=== PATIENT | female | born 1935 | race Caucasian/White ===

== ENCOUNTER 2019-08-25 13:31 | Observation (INO) | payer MEDICARE, SELFPAY ==
[2019-08-25] VITALS (7 sets, daily range): BP systolic 102–158; BP diastolic 57–70; PULSE 64–82; RESP 14–18; TEMP 35.3–36.9; O2SAT 91–96; BMI 19.1
--- NOTE | 2019-08-25 13:44 | XR_ITS ---
WS: [id number] Portable AP upright chest, 08/25/2019 Clinical Data: weakness Comparison: Portable chest, 09/27/2017. Findings: No nodules, masses or effusions are seen. The heart is normal. The pulmonary vascularity is not increased. No pneumonia or pneumothorax is seen. The diaphragms are flattened. The aortic arch a nd descending aorta show calcification. XR/XR chest 1V portable [id number] Impression: Atherosclerosis and hyperinflation.
--- NOTE | 2019-08-25 13:50 | CTR_ITS ---
PROCEDURE INFORMATION: Exam: CT Abdomen And Pelvis With Contrast Exam date and time: 08/25/2019 2:54 PM Age: 83 years old Clinical indication: Abdominal pain; Prior surgery; Additional info: N/v TECHNIQUE: Imaging protocol: Computed tomography of the abdomen and pelvis with intravenous contrast. Radiation optimization: All CT scans at this facility use at least one of these dose optimization techniques: automated exposure control; mA and/or kV adjustment per patient size (includes targeted exams where dose is matched to clinical indication); or iterative reconstruction. Contrast material: VISI; Contrast volume: 75 ml; Contrast route: IV; COMPARISON: CR Hip 2-3v LEFT wwo Pelv* [id number] 06/06/2018 12:55 PM RADIATION DOSE METRICS: Total DLP: 489.31 mGy-cm FINDINGS: Liver: Normal. No mass. Gallbladder and bile ducts: Normal. No calcified stones. No ductal dilation. Pancreas: There is a heterogeneous area in the body of the pancreas measuring 5 x 2.2 cm as seen on series 2, image 24. There are iso and hypodense areas. No associated fat or calcification. There are calcifications in the pancreatic head and uncinate process consistent with chronic pancreatitis. Spleen: Normal. No splenomegaly. Adrenals: Normal. No mass. Kidneys and ureters: There is a 2.4 cm mid left renal cyst. Other smaller cysts are seen bilaterally. No renal calcification or hydronephrosis. Stomach and bowel: Unremarkable. No obstruction. No mucosal thickening. Appendix: The appendix is visualized and appears normal. Intraperitoneal space: Unremarkable. No free air. No significant fluid collection. Vasculature: Unremarkable. No abdominal aortic aneurysm. Lymph nodes: Unremarkable. No enlarged lymph nodes. Bladder: Unremarkable as visualized. Reproductive: There has been a hysterectomy. Bones/joints: Unremarkable. No acute fracture. Soft tissues: Unremarkable. CT/CT abdomen pelvis w con* [id number] IMPRESSION: There is abnormality in the body of the pancreas as described above. Differential considerations would include neoplasm as well as pancreatitis and perhaps pseudocyst. Clinical correlation is advised. Correlation with amylase and lipase are suggested.If there is desire for further evaluation, a MRI with and without IV contrast could be performed. There are benign bilateral renal cysts. No follow-up imaging is recommended based on imaging criteria. Radiation Dose CTDIVOL = (mGy): DLP = 489.31 (mGy-cm)
--- NOTE | 2019-08-25 13:56 | W.ED.NAVMDI ---
Documented by User: MARIE Merlos 08/25/19 16:12 HPI - Nausea/Vomiting/Diarrhea General: Chief complaint: Nausea/Vomiting/Diarrhea Stated complaint: n/v Time Seen by Provider: 08/25/19 13:39 History of Present Illness: HPI Narrative: Patient arrives here with complaint of vomiting since this morning nauseated off and on for the last 2 weeks. Says she just feels weak and feel like she keeping things down today denies any diarrhea fever chills does have a history of emphysema continues to smoke Denies any pain MD elicited complaint: nausea and vomiting Onset (ago): day(s) Description of vomiting: food contents and bilious Associated nausea: Yes Associated abdominal pain: No Severity: mild Associated symtoms: Reports no associated symptoms and nausea; Denies anxiety, change in vision, chest pain or headache(s) Review of Systems Const: Denies: fever(s), chills or body aches Eyes: Denies: change in vision or blurry vision ENMT: Denies: throat pain or nasal congestion Card: Denies: chest pain or dyspnea on exertion Resp: Denies: dyspnea, productive cough or non-productive cough GI: Reports: nausea and vomiting; Denies: abdominal pain Musc: Denies: extremity pain Skin/Breast: Denies: rash Neuro: Denies: headache(s) Psych: Denies: anxiety or depression Fausto/Lymph: Denies: easy bruising PFSH ED PFSH: Social History Smoking and tobacco status: current every day smoker Physical Exam Const: COMMON NORMALS: no acute distress, average body habitus and patient oriented x3 HENMT: COMMON NORMALS: normocephalic HEAD & SCALP: normal to inspection and normocephalic FACE & SINUS: normal facial exam Eye: COMMON NORMALS: conjunctivae normal and negative for no scleral icterus (Eyes appear little bit yellow) GENERAL EYE: appearance normal, both eyes and all related structures CONJUNCTIVA: Yes conjunctivae normal Neck/C-Spine: COMMON NORMALS: no JVD Chest: COMMONS NORMALS: normal inspection of the chest Resp: COMMON NORMALS: normal respiratory effort and clear to auscultation bilaterally AUSCULTATION: clear to auscultation bilaterally Cardio: COMMON NORMALS: no JVD, regular rate and regular rhythm RATE: regular rate RHYTHM: regular rhythm GI: COMMON NORMALS: Normal to inspection, nondistended, normoactive bowel sounds present Extremity: COMMON NORMALS: normal to inspection and full ROM Neuro: COMMON NORMALS: patient oriented x3 Skin: NARRATIVE SKIN EXAM: Skin is very thin and does have eczema does have some tenting Course Vital Signs: Vital signs: Vital Signs Temperature 95.6 F L 08/25/19 13:38 Pulse Rate 69 08/25/19 16:50 Respiratory Rate 14 08/25/19 16:50 Blood Pressure 129/58 08/25/19 16:50 Pulse Oximetry 96 08/25/19 16:50 MDM - Nausea/Vomiting/Diarrhea MDM Narrative: Medical decision making narrative: Discussed case with Dr. Harvey turned over care to her Lab Data: Labs: Lab Results 08/25/19 08/25/19 08/25/19 Range/Units 14:09 14:09 15:20 WBC 18.1 H (4.0-10.0) 10^3/ uL RBC 4.82 (4.1-5.3) 10^6/u L Hgb 15.0 (11.5-15.3) g/dL Hct 43.7 (37.0-47.0) % MCV 90.7 (81-99) fL MCH 31.1 (28.0-34.0) pg MCHC 34.3 (30.0-36.0) g/dL RDW 12.1 (12.1-15.1) % Plt Count 252 (130-400) 10^3/c mm MPV 10.7 H (7.4-10.4) fL Neut % (Auto) 82.6 % Lymph % (Auto) 11.5 % [place] % (Auto) 5.3 % Eos % (Auto) 0.1 % Baso % (Auto) 0.2 % Neut # (Auto) 14.9 H (1.8-7.7) 10^3/u L Lymph # (Auto) 2.1 (0.8-4.8) 10^3/u L [place] # (Auto) 1.0 H (0.2-0.9) 10^3/u L Eos # (Auto) 0.0 (0.0-0.8) 10^3/u L Baso # (Auto) 0.0 (0.0-0.1) 10^3/u L Nucleated RBC % (a uto) 0 % Nucleated RBCs # 0.0 /100WBC Sodium 140 (136-145) mmol/L Potassium 3.2 L (3.5-5.1) mmol/L Chloride 90 L (98-107) mmol/L Carbon Dioxide 33 H (22-29) mmol/L Anion Gap 20.2 H (5-19) BUN 27 H (8-23) mg/dL Creatinine 1.0 H (0.5-0.9) mg/dL Glucose 190 H (65-115) mg/dL Calculated Osmolal ity 292 (285-295) mOsm/k g Calcium 11.4 H (8.5-10.5) mg/dL Total Bilirubin 0.6 (0.15-1.2) mg/dL AST 14 (0-32) U/L ALT 13 (0-33) U/L Alkaline Phosphata se 53 (35-105) IU/L Total Protein 7.5 (6.6-8.7) g/dL Albumin 5.1 (3.5-5.2) g/dL Globulin 2.4 (1.3-4.6) g/dL Lipase 9 L (13-60) U/L Urine Color Yellow (Yellow) Urine Appearance Clear (CLEAR) Urine pH 6.5 (5-7) Ur Specific Gravit y 1.015 (1.005-1.030) Urine Protein 1+ H (Negative) Urine Glucose (UA) Norm (Normal) Urine Ketones 1+ H (Negative) Urine Blood Neg (Negative) Urine Nitrate Negative (Negative) Urine Bilirubin Neg (NEGATIVE) Urine Urobilinogen Norm (Negative) mg/dL Ur Leukocyte Corin ase Negative (Negative) Urine RBC None (0-2) /hpf Urine WBC 0-4 H (0-5) /hpf Ur Squamous Epith Cells None (0-5) Urine Bacteria Trace (NONE) Urine Mucus 2+ Discharge Plan Discharge Prescriptions: No Action atorvastatin 20 mg tablet 20 mg PO DAILY RF: 0 amlodipine 5 mg tablet 5 mg PO DAILY RF: 0 hydrochlorothiazide 25 mg tablet 25 mg PO DAILY RF: 0 Spiriva with HandiHaler 18 mcg capsule, w/inhalation device 18 mcg INHALATION DAILY RF: 0 Calcium 500 500 mg calcium (1,250 mg) Tablet 500 mg PO DAILY RF: 0 Multiple Vitamin, Womens Tablet 1 tab PO DAILY RF: 0 Vitamin D3 50 mcg (2,000 unit) Capsule 50 mcg PO DAILY RF: 0 Mucinex 600 mg Tablet Extended Release 12hr 600 mg PO Q12H PRN (Reason: congestion/cough) RF: 0 Coding Level of Care Code ED Front Line Supervisor for Chg Fwd Exam Comprehensive Documented by User: Karrie Harvey MD 08/25/19 17:00 HPI - Nausea/Vomiting/Diarrhea General: Chief complaint: Nausea/Vomiting/Diarrhea Stated complaint: n/v Time Seen by Provider: 08/25/19 13:39 PFSH ED PFSH: Social History Smoking and tobacco status: current every day smoker Course ED course: I saw this patient with [place], and reviewed her history, exam, test results. She is noted to have a new pancreatic mass and is still complaining of vomiting and not able to tolerated fluids. Discussed with Dr. Asencio and he will admit. Vital Signs: Vital signs: Vital Signs Temperature 95.6 F L 08/25/19 13:38 Pulse Rate 69 08/25/19 16:50 Respiratory Rate 14 08/25/19 16:50 Blood Pressure 129/58 08/25/19 16:50 Pulse Oximetry 96 08/25/19 16:50 MDM - Nausea/Vomiting/Diarrhea Lab Data: Labs: Lab Results 08/25/19 08/25/19 08/25/19 Range/Units 14:09 14:09 15:20 WBC 18.1 H (4.0-10.0) 10^3/ uL RBC 4.82 (4.1-5.3) 10^6/u L Hgb 15.0 (11.5-15.3) g/dL Hct 43.7 (37.0-47.0) % MCV 90.7 (81-99) fL MCH 31.1 (28.0-34.0) pg MCHC 34.3 (30.0-36.0) g/dL RDW 12.1 (12.1-15.1) % Plt Count 252 (130-400) 10^3/c mm MPV 10.7 H (7.4-10.4) fL Neut % (Auto) 82.6 % Lymph % (Auto) 11.5 % [place] % (Auto) 5.3 % Eos % (Auto) 0.1 % Baso % (Auto) 0.2 % Neut # (Auto) 14.9 H (1.8-7.7) 10^3/u L Lymph # (Auto) 2.1 (0.8-4.8) 10^3/u L [place] # (Auto) 1.0 H (0.2-0.9) 10^3/u L Eos # (Auto) 0.0 (0.0-0.8) 10^3/u L Baso # (Auto) 0.0 (0.0-0.1) 10^3/u L Nucleated RBC % (a uto) 0 % Nucleated RBCs # 0.0 /100WBC Sodium 140 (136-145) mmol/L Potassium 3.2 L (3.5-5.1) mmol/L Chloride 90 L (98-107) mmol/L Carbon Dioxide 33 H (22-29) mmol/L Anion Gap 20.2 H (5-19) BUN 27 H (8-23) mg/dL Creatinine 1.0 H (0.5-0.9) mg/dL Glucose 190 H (65-115) mg/dL Calculated Osmolal ity 292 (285-295) mOsm/k g Calcium 11.4 H (8.5-10.5) mg/dL Total Bilirubin 0.6 (0.15-1.2) mg/dL AST 14 (0-32) U/L ALT 13 (0-33) U/L Alkaline Phosphata se 53 (35-105) IU/L Total Protein 7.5 (6.6-8.7) g/dL Albumin 5.1 (3.5-5.2) g/dL Globulin 2.4 (1.3-4.6) g/dL Lipase 9 L (13-60) U/L Urine Color Yellow (Yellow) Urine Appearance Clear (CLEAR) Urine pH 6.5 (5-7) Ur Specific Gravit y 1.015 (1.005-1.030) Urine Protein 1+ H (Negative) Urine Glucose (UA) Norm (Normal) Urine Ketones 1+ H (Negative) Urine Blood Neg (Negative) Urine Nitrate Negative (Negative) Urine Bilirubin Neg (NEGATIVE) Urine Urobilinogen Norm (Negative) mg/dL Ur Leukocyte Corin ase Negative (Negative) Urine RBC None (0-2) /hpf Urine WBC 0-4 H (0-5) /hpf Ur Squamous Epith Cells None (0-5) Urine Bacteria Trace (NONE) Urine Mucus 2+ Discharge Plan Discharge Prescriptions: No Action atorvastatin 20 mg tablet 20 mg PO DAILY RF: 0 amlodipine 5 mg tablet 5 mg PO DAILY RF: 0 hydrochlorothiazide 25 mg tablet 25 mg PO DAILY RF: 0 Spiriva with HandiHaler 18 mcg capsule, w/inhalation device 18 mcg INHALATION DAILY RF: 0 Calcium 500 500 mg calcium (1,250 mg) Tablet 500 mg PO DAILY RF: 0 Multiple Vitamin, Womens Tablet 1 tab PO DAILY RF: 0 Vitamin D3 50 mcg (2,000 unit) Capsule 50 mcg PO DAILY RF: 0 Mucinex 600 mg Tablet Extended Release 12hr 600 mg PO Q12H PRN (Reason: congestion/cough) RF: 0 Coding Level of Care Code ED Front Line Supervisor for Chg Fwd Exam Comprehensive
[2019-08-25] MEDS: sodium chloride 0.9% 1,000 ML 999 ML IV (14:08)
[2019-08-25] MEDS: ondansetron 2 mg/ML SDV 2 mL 4 MG IVP (14:09)
[2019-08-25 14:23] LABS: Basophils % 0.2 %; Eosinophils % 0.1 %; Hematocrit 43.7 % (37.0-47.0); Lymphocytes # 2.1 10^3/uL (0.8-4.8); Lymphocytes % 11.5 %; Mean Corpuscular HGB Conc 34.3 g/dL (30.0-36.0); Mean Corpuscular Hemoglobin 31.1 pg (28.0-34.0); Mean Corpuscular Volume 90.7 fL (81-99); Mean Platelet Volume 10.7 fL (7.4-10.4); Monocytes % 5.3 %; Neutrophils # 14.9 10^3/uL (1.8-7.7); Neutrophils % 82.6 %; Nucleated Red Blood Cells % 0 %; Platelet Count 252 10^3/cmm (130-400); Red Blood Count 4.82 10^6/uL (4.1-5.3); Red Cell Distribution Width 12.1 % (12.1-15.1); White Blood Count 18.1 10^3/uL (4.0-10.0)
[2019-08-25 14:39] LABS: Alanine Aminotransferase 13 U/L (0-33); Albumin Level 5.1 g/dL (3.5-5.2); Alkaline Phosphatase 53 IU/L (35-105); Anion Gap 20.2 (5-19); Aspartate Amino Transferase 14 U/L (0-32); Blood Urea Nitrogen 27 mg/dL (8-23); Calcium 11.4 mg/dL (8.5-10.5); Carbon Dioxide 33 mmol/L (22-29); Chloride 90 mmol/L (98-107); Globulin 2.4 g/dL (1.3-4.6); Glucose 190 mg/dL (65-115); Lipase 9 U/L (13-60); Osmolality Calculated 292 mOsm/kg (285-295); Potassium 3.2 mmol/L (3.5-5.1); Sodium 140 mmol/L (136-145); Total Bilirubin 0.6 mg/dL (0.15-1.2); Total Protein 7.5 g/dL (6.6-8.7)
[2019-08-25] MEDS: iodixanol 320 mg/mL 100mL Btl IV (15:09)
[2019-08-25 15:55] LABS: Urine Appearance Clear (CLEAR); Urine Color Yellow (Yellow)
[2019-08-25 15:56] LABS: Add Urine Culture? No; Add Urine Microscopic? YES; Bacteria Urine TRACE; Bilirubin Urine Neg (NEGATIVE); Blood Urine Neg (Negative); Glucose Urine UA Norm (Normal); Ketones Urine 1+ (Negative); Leukocyte Esterase Urine Negative (Negative); Mucus Urine 2+; Nitrate Urine Negative (Negative); Protein Urine 1+ (Negative); Specific Gravity, Urine 1.015 (1.005-1.030); Urobilinogen Urine Norm (Negative); WBC Urine 0-4 /hpf (0-5); pH Urine 6.5 (5-7)
[2019-08-25 17:07] LABS: Lactate (Lactic Acid level) 2.4 mmol/L (0.5-2.2)
[2019-08-25 17:17] LABS: Alcohol Level < 10 mg/dL (0-10)
--- NOTE | 2019-08-25 19:35 | P.HP_ITS ---
Providers/Chief Complaint Admitting Physician: Mike Houston Primary Care Provider: Parvez Kumar DO Chief Complaint: n/v History of Present Illness Misa Calzada is a 83 year old female current smoker, with longstanding smoking history, HTN, HLD, COPD, not normally on oxygen presented for evaluation due to vomiting since yesterday, several episodes, as well as poor oral intake, and persistent nausea for about 3 weeks. She had an episode of constipation initially, and did see primary care provider for the nausea. She was started on bowel regimen and did have a bowel movement, however, at the same time started having vomiting as well. She does state taking ibuprofen for about 2-3 days, although not excessively . She is a chronic smoker but denies alcohol use. In ER incidentally noted hypercalcemia 11.4. Leukocytosis of 18,000. Hypokalemia. Dehydration. CT abdomen pelvis with 5 x 2.2 cm heterogenous area in the body of the pancreas of unclear etiology, malignancy not excluded, calcifications in the pancreatic head and uncinate process consistent with chronic pancreatitis. Lipase is 9. She denies diarrhea, denies pale or fatty stools. In ER she received Zofran. She is feeling slightly better. Denies any abdominal pain. She does report that food sometimes feels like it is stuck in her stomach and does not progress further which has been contributing to her lack of appetite and poor oral intake in the last 3 weeks. She reports she in the past used to get regular colonoscopies every 3 years. Last one was 2013 which showed some polyps. Review of Systems Const: Reports: change in appetite and fatigue; Denies: fever(s), chills, body aches or malaise Eyes: Denies: change in vision or eye redness ENMT: Denies: throat pain, oral sores or ear or mastoid pain Card: Denies: chest pain, edema, pre-syncope or dyspnea on exertion Resp: Denies: dyspnea, productive cough, change in phlegm color or hemoptysis GI: Denies: abdominal pain, nausea, vomiting, diarrhea, constipation, hematochezia or melena : Denies: flank pain, urinary frequency or hematuria Musc: Denies: back pain, joint swelling or joint redness Skin/Breast: Denies: rash, sores or new lesions Neuro: Denies: headache(s), numbness in extremities, weakness in extremities, dizziness, confusion or seizure-like activity Endo: Denies: polyuria or polydipsia Fausto/Lymph: Denies: easy bleeding or purpura All/Imm: Denies: urticaria, throat swelling or tongue swelling Medications/Allergies Home Medications Medication Instructions Recorded Confirmed Last Taken Type amlodipine 5 mg PO DAILY 08/25/19 08/25/19 08/24/19 History atorvastatin 20 mg PO DAILY 08/25/19 08/25/19 08/24/19 History calcium carbonate [Calcium 500] 500 mg PO DAILY 08/25/19 08/25/19 08/24/19 History cholecalciferol (vitamin D3) 50 mcg PO DAILY 08/25/19 08/25/19 08/24/19 History [Vitamin D3] guaifenesin [Mucinex] 600 mg PO Q12H PRN 08/25/19 08/25/19 08/24/19 History hydrochlorothiazide 25 mg PO DAILY 08/25/19 08/25/19 08/24/19 History pplehqtkyocj-Ze-sqjw-minerals 1 tab PO DAILY 08/25/19 08/25/19 08/24/19 History [Multiple Vitamin, Womens] tiotropium bromide [Spiriva with 18 mcg INHALATION DAILY 08/25/19 08/25/19 08/24/19 History HandiHaler] Allergies Allergy/AdvReac Type Severity Reaction Status Date / Time Unable to Assess Allergy Unverified 08/25/19 13:48 PFSH Acute PFSH: Medical History COPD (chronic obstructive pulmonary disease) DM type 2 (diabetes mellitus, type 2) HLD (hyperlipidemia) HTN (hypertension) Smoking addiction Surgical History H/O colonoscopy H/O: hysterectomy History of tonsillectomy Hx of shoulder surgery S/P foot surgery, left Family History Other Colon cancer Social History Smoking and tobacco status: current every day smoker cigarettes [ Other cigarette details: Has been trying to quit ] Alcohol intake: never Substance/Drug Use: never Lives independently: Yes Vitals/I&O/Wt Last Vital Signs Temp 95.6 F L 08/25/19 13:38 Pulse 64 08/25/19 18:10 Resp 16 08/25/19 18:10 BP 102/70 08/25/19 18:10 Pulse Ox 93 08/25/19 18:10 08/25/19 08/25/19 08/25/19 06:59 14:59 22:59 Intake Total 1000 / 1000 Balance 1000 / 1000 Weight last 48 hrs Weight 52.163 kg Physical Exam Const: COMMON NORMALS: no acute distress and patient oriented x3 NUTRITIONAL APPEARANCE: thin ORIENTATION/CONSCIOUSNESS: Yes awake HENMT: COMMON NORMALS: oropharynx normal Neck/C-Spine: COMMON NORMALS: no JVD Resp: COMMON NORMALS: normal respiratory effort and clear to auscultation bilaterally AUSCULTATION: clear to auscultation bilaterally Cardio: COMMON NORMALS: no JVD, regular rhythm, S1 normal heart sound present, S2 normal heart sound present and No murmurs present (Cardio) RHYTHM: regular rhythm HEART SOUNDS: S1 normal heart sound present and S2 normal heart sound present GI: COMMON NORMALS: Normal to inspection, nondistended, normoactive bowel sounds present, Soft to palpation and non-tender PALPATION: Yes Soft to palpation Extremity: COMMON NORMALS: no joint enlargement and no pedal edema Neuro: COMMON NORMALS: patient oriented x3 and moves all extremities Skin: COMMON NORMALS: no rashes or lesions noted GENERAL SKIN EXAM: no rashes or lesions noted Data : 08/25/19 14:09 08/25/19 14:09 A&P Assessment and plan (1) Vomiting: For the past 2 days. Very limited oral intake, but this extends for the past 3 weeks with persistent nausea. Previously constipation, but did have a bowel movement after bowel regimen started by PCP. Does have hypercalcemia, although this appears may be secondary to dehydration. CT abdomen pelvis without acute abnormality, but incidentally noted abnormality in the body of pancreas, 5 x 2.2 cm. Discussed with her. Unclear etiology at this time. Lipase is 9, although with signs of calcifications in the head of the pancreas appears may have had chronic pancreatitis before. Does not have signs of malabsorption on ROS. Vomiting may be related to acute on chronic pancreatitis. Cannot exclude malignancy of the pancreas as well. Long standing smoking history. Alternatively may be secondary to gastritis as she does report was taking 2 to 3 days of ibuprofen for back pain. She also reports that food is sticking around sometimes in her stomach and she f eels like it is not progressing. With history of diabetes discussed with her also possibility of gastroparesis, and she may benefit from gastric emptying study once she is feeling little bit better. Discussed with her concern for possible pancreatic malignancy, although this time it is not confirmed, finding may be secondary to cyst, or acute on chronic pancreatitis. She will need additional evaluation by MRI, either outpatient which will be ordered at time of discharge if she improves by tomorrow, otherwise inpatient. Will request for CA-19-9. With possibility of acute on chronic pancreatitis will at this time discontinue calcium as with hypercalcemia and this may be an etiology. Work-up hypercalcemia as below. We will also request for triglyceride level. She denies drinking alcohol. Gallbladder and bile ducts appear normal on CT with contrast. At this time also conservative management with Zofran, IV hydration, acid blockers. She declines PPI, but is okay with famotidine. Discussed with her to discontinue NSAIDs. If persistent dyspepsia with smoking history will need a nonemergent EGD. Status: Acute (2) Pancreatic abnormality: As above. Will need additional evaluation by MRI. CA-19-9. Counseled on smoking cessation. Status: Acute (3) Hypercalcemia: 11.4. This appears more likely secondary to dehydration as well as continue supplementation, also with leukocytosis which is likely due to hemoconcentration. Albumin is on the high side 5.1. Protein is not elevated. At this time discussed with her to discontinue supplementation. We will also check PTH, vitamin D. Provide IV hydration. Monitor calcium level. Status: Acute (4) Dehydration: IV hydration. Symptomatic management of nausea, vomiting, clear liquid diet. Status: Acute (5) Hypokalemia: Received replacement. Monitor level. Check magnesium. Status: Acute (6) Smoking addiction: Discussed cessation with her for 4 minutes. She says that she has been trying to quit. She has a longstanding history for at least 60 years of smoking. She is currently down to half a pack per day. Will offer her nicotine patches, gum. Continue to encourage cessation. Status: Acute (7) COPD (chronic obstructive pulmonary disease): Currently not in exacerbation. Not normally on oxygen. Status: Acute (8) DM type 2 (diabetes mellitus, type 2): She reports has been controlled by diet alone. Reports last A1c was 7.1, although I do not see any record in our system. Will request for level. With her symptoms may still benefit from evaluation by gastric emptying study on a nonurgent basis. Status: Acute (9) HTN (hypertension): Monitor blood pressures. Hold HCTZ due to dehydration. Status: Acute (10) HLD (hyperlipidemia): Continue statin. Status: Acute Additional A&P Information Metabolic alkalosis: Secondary to dehydration, contraction. Metabolic acidosis: Anion gap elevated, sequential lactic acidosis, again I believe this is secondary to dehydration, contraction, hypovolemia and hypoperfusion. Leukocytosis is present, but this is likely hemoconcentration. She does not at this time exhibit symptoms of active infection. These may also be reactive possibly secondary to acute on chronic pancreatitis. Cannot exclude malignancy. At this time gentle IV hydration. Monitor parameters. Attestations Medical Necessity Statement*: Place in observation. Coding Level of Care Code Acute Machine Folder for Chg Fwd Diagnoses Vomiting R11.10 Pancreatic abnormality Q45.3 Hypercalcemia E83.52 Dehydration E86.0 Hypokalemia E87.6 Smoking addiction F17.200 COPD (chronic obstructive pulmonary disease) J44.9 DM type 2 (diabetes mellitus, type 2) E11.9 HTN (hypertension) I10 HLD (hyperlipidemia) E78.5
[2019-08-25] MEDS: famotidine 20 mg Tablet PO (20:16)
[2019-08-25] MEDS: dextrose 5%-sod chloride 0.45% 1,000 ML 75 ML IV (20:16)
[2019-08-25 21:05] LABS: Estmated Average Glucose 189; Hemoglobin A1C 8.2 % (4.0-6.0)
[2019-08-26] VITALS: BP 101/65; PULSE 67; RESP 18; TEMP 36.7; O2SAT 90
[2019-08-26 00:44] LABS: Calcium 9.9 mg/dL (8.5-10.5); Parathyroid Hormone 14.4 pg/mL (15-65)
[2019-08-26 04:00] VITALS: BP 86/47; PULSE 59; RESP 18; TEMP 36.8; O2SAT 90
[2019-08-26 04:03] LABS: Cancer Antigen 19 9 715.1 U/mL (0-35)
[2019-08-26 04:11] LABS: 25 Hydroxy Vitamin D 87 ng/mL (30-100); Magnesium 1.3 mg/dL (1.7-2.3); Thyroid Stimulating Hormone 0.64 uIU/mL (0.27-4.20); Triglycerides 171 mg/dL (0-150)
[2019-08-26 06:03] LABS: Basophils # 0.1 10^3/uL (0.0-0.1); Basophils % 0.5 %; Eosinophils # 0.2 10^3/uL (0.0-0.8); Eosinophils % 1.5 %; Hematocrit 38.6 % (37.0-47.0); Hemoglobin 12.4 g/dL (11.5-15.3); Lymphocytes # 2.5 10^3/uL (0.8-4.8); Lymphocytes % 20.5 %; Mean Corpuscular HGB Conc 32.1 g/dL (30.0-36.0); Mean Corpuscular Hemoglobin 30.8 pg (28.0-34.0); Mean Corpuscular Volume 95.8 fL (81-99); Mean Platelet Volume 10.8 fL (7.4-10.4); Monocytes # 0.7 10^3/uL (0.2-0.9); Monocytes % 5.6 %; Neutrophils # 8.9 10^3/uL (1.8-7.7); Neutrophils % 71.6 %; Nucleated Red Blood Cells % 0 %; Platelet Count 166 10^3/cmm (130-400); Red Blood Count 4.03 10^6/uL (4.1-5.3); White Blood Count 12.4 10^3/uL (4.0-10.0)
[2019-08-26 06:21] LABS: Anion Gap 12.9 (5-19); Blood Urea Nitrogen 22 mg/dL (8-23); Calcium 9.8 mg/dL (8.5-10.5); Carbon Dioxide 30 mmol/L (22-29); Chloride 98 mmol/L (98-107); Glucose 148 mg/dL (65-115); Osmolality Calculated 285 mOsm/kg (285-295); Sodium 138 mmol/L (136-145)
[2019-08-26 06:22] LABS: Potassium 2.9 mmol/L (3.5-5.1)
[2019-08-26 08:00] VITALS: BP 113/57; PULSE 60; RESP 18; TEMP 37.1; O2SAT 92
--- NOTE | 2019-08-26 08:09 | PC.NURSE ---
REFUSED MEDICATIONS Patient has refused all medications except she states that she will take her spiriva. I informed her that I need to give an IV Potassium and after some explanation she agreed to take the medications. RICCO, ANA
[2019-08-26] MEDS: dextrose 5%-sod chloride 0.45% 1,000 ML 75 ML IV (08:32)
[2019-08-26] MEDS: potassium chloride premix 40 MEQ/100 ML PREMIX 25 MEQ IV ×2 (08:33→12:38)
[2019-08-26] MEDS: ondansetron 2 mg/ML SDV 2 mL 4 MG IVP (08:59)
[2019-08-26 09:05] VITALS: PULSE 62; O2SAT 92
[2019-08-26 11:01] VITALS: BP 114/55; PULSE 62; RESP 18; TEMP 36.9; O2SAT 93
[2019-08-26 15:29] VITALS: BP 119/54; PULSE 62; RESP 18; TEMP 37; O2SAT 92
[2019-08-26] MEDS: magnesium sulfate premix 2 GM/50 ML PIGGYBACK IV (16:43)
--- NOTE | 2019-08-26 17:37 | P.DS_ITS ---
Discharge Providers Date of Admission: 08/25/19 16:37 Date of Discharge: August 26, 2019 Attending Provider at Admission: Mike Houston Attending Provider at Discharge: Mike Houston Primary Care Provider: Parvez Kumar DO Diagnoses at Discharge Discharge Diagnosis (1) Vomiting: Status: Acute Problem details: Resolved. Not entirely clear reason, appears probably gastritis secondary to NSAIDs after in taking ibuprofen for 2 to 3 days. Started on famotidine as she had declined PPI. Will need evaluation by EGD due to long-term history of smoking, and persistent dyspepsia for several weeks. Additionally with poorly controlled diabetes she would benefit from assessment by gastric emptying study once she is feeling a little bit better, please help her arrange for this. Additionally noted pancreatic abnormality, and needs follow-up and assessment to exclude malignancy. Additionally possibility of acute on chronic pancreatitis, despite lipase being low, but with multiple calcifications in the head of the pancreas, this is a possibility. Gallbladder and ducts normal on CT. Triglycerides only moderately elevated. Calcium initially high on presentation, but perhaps secondary to dehydration, which improved to normal with rehydration. Supplementation discontinued for now. Appears to have pancreatic anomaly, possibly malignancy in the body of the pancreas which needs to be investigated, possibly contributing to recurrent episodes of pancreatitis. All of these as well as the below conditions were discussed with the patient. Please follow-up in office. (2) Pancreatic abnormality: Status: Acute Problem details: Please follow-up outpatient MRCP result to exclude possible malignancy. Possibly acute on chronic pancreatitis. Refer for additional testing as may be necessary. (3) Hypercalcemia: Status: Acute Problem details: On presentation. Appears to have improved. Possibly secondary to dehydration. At this time discussed to avoid supplementation. At the same time with concern for possible pancreatic malignancy, please follow-up calcium levels. (4) Dehydration: Status: Acute Problem details: Improved. Received IV hydration. Currently tolerating clear liquids. Advance diet slowly as tolerating. Discontinued HCTZ. For now hold other blood pressure medications as blood pressures have been on the soft side with hypovolemia. (5) Hypokalemia: Status: Acute Problem details: Replaced. Hypomagnesemia replaced. (6) Smoking addiction: Status: Acute Problem details: With dyspepsia, please refer for evaluation by EGD, as well as work-up pancreatic abnormality. Discussed with her regarding cessation. She is unfortunately a very long-term smoker of at least 60 years. Please continue to encourage and support cessation. (7) COPD (chronic obstructive pulmonary disease): Status: Acute Problem details: Currently not in exacerbation. (8) DM type 2 (diabetes mellitus, type 2): Status: Acute Problem details: She admits herself that she is very reluctant taking any medications, and in fact has been very reluctant to even try to take an acid rosaura. States that she has been trying to control her diabetes with diet and lifestyle, and says that this has been working for her. Appears that her A1c is 8.2, and currently diabetes is poorly controlled. Please work with her to establish additional control by medication on top of her lifestyle measures which does not appear are effective. (9) HTN (hypertension): Status: Acute Problem details: With hypovolemia on presentation, blood pressure is actually better in the hos pital, possibly with diet. For now her blood pressure medications are discontinued. She is encouraged to continue to maintain cardiac diet. Please continue to monitor blood pressures. Avoid hypovolemia, dehydration. (10) HLD (hyperlipidemia): Status: Acute Problem details: Continue statin. Reason for Visit Reason for Visit: Reason For Visit: n/v Hospital Course Hospital Course: Pleasant 83-year-old lady with a number of medical conditions, although by her own admission does not like taking medications, was placed in observation due to 2 days of episodes of nausea and vomiting, with nausea preceding the symptoms for the prior 3 weeks. She was initially having some constipation, and after describing her symptoms to PCP, had been prescribed a bowel regimen, and successfully moved her bowels, but subsequently started having the vomiting, and overall did not improve. She came in for evaluation to ER where she was found dehydrated, with hypovolemic contraction alkalosis, as well as mild degree of lactic acidosis due to hypoperfusion, for which she received IV fluids. Persistent nausea was treated with Zofran. CT of abdomen pelvis was obtained with finding of 5 x 2.2 cm unclear abnormality in the body of the pancreas, and with her very longstanding smoking history of at least 60 years, malignancy will need to be excluded for which an outpatient MRCP is ordered and will need to be followed up. She is also noted to have multiple calcifications in the head of the pancreas, and despite low lipase, acute on chronic pancreatitis is a distinct possibility. Gallbladder and ducts appeared normal on CT scan. Triglycerides only moderately elevated. Calcium was elevated initially on presentation, and hypercalcemia may have contributed to her constipation, possibly even other abdominal symptoms. PTH was not elevated, and hypercalcemia overall appears to be related to dehydration, as well as external supplementation, which at this time was recommended to her to discontinue. Calcium level will need to be followed up given concern for possible pancreatic malignancy. She did admit also to taking 2-3 days of ibuprofen, although said was not taking excessive doses. Gastritis secondary to NSAID intake is suspected as well, and she is started on famotidine as she declined to take PPI. She also described feeling that food does not progress through her stomach, and a lot of times sits there for a long time. She has diabetes, which she says has been well managed by diet and exercise. A1c was checked and is 8.2. Please discuss with her additional options for management of diabetes, as well as refer for follow-up gastric emptying study for possible gastroparesis contributing to her symptoms given poorly controlled diabetes. With longstanding smoking history, she also will need referral for assessment by EGD to exclude gastric malignancy as the reason of her persistent dyspepsia.While in the hospital with symptomatic treatment her nausea resolved. She had no abdominal pain. No further vomiting. She tolerated small amounts of clear liquid diet well. Her significant hypokalemia and hypomagnesemia seconda ry to vomiting and poor oral intake were replaced. She is overall feeling better today. She is agreeable to return home to slowly continue advance diet, and follow-up regarding all of the above conditions which were discussed with her in detail. Smoking cessation was strongly advised, and she verbalized understanding. Please discuss with her in follow-up on all the above conditions, and continue to encourage and support smoking cessation. Discharge Data Data Completed and Pending: Completed Studies During Hospitalization Category Date Time Status CT abdomen pelvis w con* [id number] Urge nt Cat Scan 08/25/19 13:50 Completed XR chest 1V shayna ble [id number] Stat Exams 08/25/19 13:44 Completed Pending at discharge Category Date Time Status Basic Metabolic P pedro AM LABS Lab 08/27/19 04:00 Ordered Basic Metabolic P pedro AM LABS Lab 08/28/19 04:00 Ordered Complete Blood Co unt w/Auto AM LABS Lab 08/27/19 04:00 Ordered Complete Blood Co unt w/Auto AM LABS Lab 08/28/19 04:00 Ordered Labs from last 24 hours 08/26/19 08/26/19 08/25/19 05:30 05:30 19:55 WBC 12.4 H RBC 4.03 L Hgb 12.4 Hct 38.6 MCV 95.8 D MCH 30.8 MCHC 32.1 D RDW 12.0 L Plt Count 166 MPV 10.8 H Neut % (Auto) 71.6 Lymph % (Auto) 20.5 Moffat % (Auto) 5.6 Eos % (Auto) 1.5 Baso % (Auto) 0.5 Neut # (Auto) 8.9 H Lymph # (Auto) 2.5 Moffat # (Auto) 0.7 Eos # (Auto) 0.2 Baso # (Auto) 0.1 Nucleated RBC % (a uto) 0 Nucleated RBCs # 0.0 Sodium 138 Potassium 2.9 L Chloride 98 Carbon Dioxide 30 H Anion Gap 12.9 BUN 22 Creatinine 0.7 Glucose 148 H Estimat Average Gl ucose Hemoglobin A1c Calculated Osmolal ity 285 Calcium 9.8 Magnesium 1.3 L Triglycerides 171 H CA 19-9 Antigen 25-OH Vitamin D To leslie 87 TSH 0.64 PTH Intact Calcium (PTH Intac t) 08/25/19 08/25/19 08/25/19 19:55 19:55 19:55 WBC RBC Hgb Hct MCV MCH MCHC RDW Plt Count MPV Neut % (Auto) Lymph % (Auto) Moffat % (Auto) Eos % (Auto) Baso % (Auto) Neut # (Auto) Lymph # (Auto) Moffat # (Auto) Eos # (Auto) Baso # (Auto) Nucleated RBC % (a uto) Nucleated RBCs # Sodium Potassium Chloride Carbon Dioxide Anion Gap BUN Creatinine Glucose Estimat Average Gl ucose 189 Hemoglobin A1c 8.2 H Calculated Osmolal ity Calcium Magnesium Triglycerides CA 19-9 Antigen 715.1 H 25-OH Vitamin D To leslie TSH PTH Intact 14.4 L Calcium (PTH Intac t) 9.9 Vitals: Last Vital Signs Temp 98.6 F 08/26/19 15:29 Pulse 62 08/26/19 15:29 Resp 18 08/26/19 15:29 BP 119/54 08/26/19 15:29 Pulse Ox 92 08/26/19 15:29 Discharge Plan Discharge Patient Disposition: Home, Self-Care Condition: Stable Prescriptions: New famotidine 20 mg Tablet 20 mg PO BID Qty: 60 RF: 0 ondansetron HCl [Zofran] 4 mg tablet 4 mg PO Q8H PRN (Reason: nausea and vomiting) 5 Days Qty: 30 RF: 1 nicotine 21 mg/24 hr patch 24 hour 1 patch TRANSDERMA Q24H Qty: 30 RF: 0 nicotine (polacrilex) 2 mg lozenge 2 mg BUCCAL Q1H PRN (Reason: nicotine cravings) Qty: 60 RF: 2 Continued atorvastatin 20 mg tablet 20 mg PO DAILY RF: 0 Spiriva with HandiHaler 18 mcg capsule, w/inhalation device 18 mcg INHALATION DAILY RF: 0 Multiple Vitamin, Womens Tablet 1 tab PO DAILY RF: 0 Mucinex 600 mg Tablet Extended Release 12hr 600 mg PO Q12H PRN (Reason: congestion/cough) RF: 0 Held Vitamin D3 50 mcg (2,000 unit) Capsule 50 mcg PO DAILY RF: 0 Hold Instructions: Resume on 09/09/19. Discontinued amlodipine 5 mg tablet 5 mg PO DAILY RF: 0 hydrochlorothiazide 25 mg tablet 25 mg PO DAILY RF: 0 Calcium 500 500 mg calcium (1,250 mg) Tablet 500 mg PO DAILY RF: 0 Discharge Orders: Discharge Order (Routine); Ordered 08/26/19 Ordered By: Mike Houston Other Ambulatory Orders: MR MRCP [id number] (Routine) Timeframe: 1 Week Facility: [facility] - Location: Radiology [facility] Ordered By: Mike Houston Referrals: Parvez Kumar DO [Primary Care Provider] - 4-7 days (Called office and left a message to make an appointment for you and for them to call you with that.) Discharge Diet: Advance as tolerated, Diabetic and Clear Liquid Discharge Activity: Increase activity as tolerated Activity Restrictions/Additional Instructions: Please avoid taking any NSAIDs like ibuprofen as these may lead to further inflammation of her stomach, worsening of nausea, vomiting and other symptoms of dyspepsia. Due to history of smoking, please discuss with your primary care provider regarding persistent dyspepsia and need for evaluation by gastroscopy to exclude any possibility of occult malignancy. Please also follow-up with your primary care provider regarding the results of MRI of your pancreas with regards to the lesion there. Please stop smoking. Slowly advance diet. If you again experience severe abdominal pain, vomiting, inability to tolerate food or drink, seek medical attention. Please discuss with your primary care doctor also regarding referral for gastric emptying study due to diabetes, once you are feeling a bit better, to assess for possible gastroparesis as the cause of your symptoms of food sticking in your stomach. If you ever have recurrence also food sticking your throat, discussed also with your primary care doctor regarding referral for barium swallow evaluation if gastroscopy is not pursued to evaluate for any narrowing in your swallowing tube (esophagus). At this time your blood pressure medications are discontinued. Please monitor your blood pressure 3 times daily, record values to bring to your appointment. If your blood pressures are persistently low at home, please seek medical attention. On presentation your calcium level was also elevated, this is most likely due to dehydration, however, please discuss with your primary care provider to follow- up with a calcium level again in office. Please discontinue calcium supplementation at this time. Discuss again with your primary care doctor regarding if this is needed to be resumed in the future. Please discuss with your primary care doctor regarding treatment of diabetes with medication in addition to dietary/lifestyle control due to poorly controlled diabetes with elevated A1c level (8.2). Discharge Attestations Time Spent in Discharge Care*: greater than 30 min Quality Metrics Clinical Quality Measures During this hospital stay, did patient experience: None Coding Level of Care Code Acute Continuous Improvement Facilitator for Chg Fwd Diagnoses Vomiting R11.10 Pancreatic abnormality Q45.3 Hypercalcemia E83.52 Dehydration E86.0 Hypokalemia E87.6 Smoking addiction F17.200 COPD (chronic obstructive pulmonary disease) J44.9 DM type 2 (diabetes mellitus, type 2) E11.9 HTN (hypertension) I10 HLD (hyperlipidemia) E78.5
== END 2019-08-26 18:45 | disposition home or self-care (01) ==
LOC: ER 16:45 → MEDSURG 17:28
PROVIDERS: Emergency Medicine; Nurse Practitioner Family; Admitting Provider Internal Medicine; PCP Electrodiagnostic Medicine; Visit Provider Internal Medicine
DX: R11.10 Vomiting, unspecified (principal); Q45.3 Other congenital malformations of pancreas and pancreatic duct; E83.52 Hypercalcemia; E86.0 Dehydration; E87.6 Hypokalemia; F17.210 Nicotine dependence, cigarettes, uncomplicated; J44.9 Chronic obstructive pulmonary disease, unspecified; E11.9 Type 2 diabetes mellitus without complications; I10 Essential (primary) hypertension; E78.5 Hyperlipidemia, unspecified
CPT/HCPCS: 12345; 36415; 71045; 74177; 80048; 80053; 80307; 81001; 82306; 82310; 83036; 83605; 83690; 83735; 83970; 84443; 84478; 85025; 86301; 96360; 96361; 96374; 96375; 99283; 99285; G0378; J2405; J3475; J3480; J7030; J7799; Q9967

== ENCOUNTER 2019-08-29 04:46 | Observation (INO) | payer MEDICARE, SELFPAY ==
[2019-08-29] VITALS (11 sets, daily range): BP systolic 138–183; BP diastolic 45–95; PULSE 67–89; RESP 16–24; TEMP 36.8–37.2; O2SAT 93–97
--- NOTE | 2019-08-29 05:04 | ED_ITS ---
Documented by User: Hakan Nesbitt MD 08/29/19 05:49 HPI - Nausea/Vomiting/Diarrhea General: Chief complaint: Nausea/Vomiting/Diarrhea Stated complaint: n/v Time Seen by Provider: 08/29/19 04:50 Source: patient Mode of arrival: ambulatory Limitations: no limitations History of Present Illness: HPI Narrative: 83-year-old female who was recently admitted and diagnosed with a mass in her pancreas. Patient's been having nausea for weeks. She was discharged 2 days ago and has been improved but states she woke up 3 hours ago with severe nausea. She took one Zofran with minimal relief. She denies any pain. She states she has been making herself vomit by sticking her finger down her throat. She denies any fever or diarrhea. MD elicited complaint: nausea and vomiting Onset (ago): hour(s) Associated nausea: Yes Location of pain: None Exacerbating factors: none Relieving factors: none Associated symtoms: Reports nausea; Denies chest pain, dysuria or headache(s) Review of Systems Const: Denies: fever(s), chills, body aches or change in appetite Eyes: Denies: blurry vision or eye discomfort ENMT: Denies: throat pain or dental pain Card: Denies: chest pain Resp: Denies: dyspnea GI: Reports: nausea and vomiting : Denies: dysuria Musc: Denies: neck pain or back pain Skin/Breast: Denies: rash Neuro: Denies: headache(s) Psych: Denies: depression Fausto/Lymph: Denies: easy bruising All/Imm: Denies: urticaria PFSH ED PFSH: Medical History COPD (chronic obstructive pulmonary disease) Currently not in exacerbation. DM type 2 (diabetes mellitus, type 2) She admits herself that she is very reluctant taking any medications, and in fact has been very reluctant to even try to take an acid rosaura. States that she has been trying to control her diabetes with diet and lifestyle, and says that this has been working for her. Appears that her A1c is 8.2, and currently diabetes is poorly controlled. Please work with her to establish additional control by medication on top of her lifestyle measures which does not appear are effective. HLD (hyperlipidemia) Continue statin. HTN (hypertension) With hypovolemia on presentation, blood pressure is actually better in the hospital, possibly with diet. For now her blood pressure medications are discontinued. She is encouraged to continue to maintain cardiac diet. Please continue to monitor blood pressures. Avoid hypovolemia, dehydration. Smoking addiction With dyspepsia, please refer for evaluation by EGD, as well as work-up pancreatic abnormality. Discussed with her regarding cessation. She is unfortunately a very long- term smoker of at least 60 years. Please continue to encourage and support cessation. Surgical History H/O colonoscopy H/O: hysterectomy History of tonsillectomy Hx of shoulder surgery S/P foot surgery, left Family History Other Colon cancer Social History Smoking and tobacco status: current every day smoker cigarettes [ Other cigarette details: Has been trying to quit ] Alcohol intake: never Lives independently: Yes Physical Exam Const: COMMON NORMALS: no acute distress, patient oriented x3 and healthy appearing HENMT: COMMON NORMALS: normocephalic and atraumatic HEAD & SCALP: normocephalic and atraumatic Eye: COMMON NORMALS: Equal, round and reactive pupils present and EOMs intact bilaterally PUPIL: Yes Equal, round and reactive pupils present Neck/C-Spine: COMMON NORMALS: full ROM and supple Chest: COMMONS NORMALS: normal inspection of the chest and normal palpation of entire chest wall Resp: COMMON NORMALS: normal respiratory effort, No retractions, No use of accessory muscles and clear to auscultation bilaterally AUSCULTATION: clear to auscultation bilaterally Cardio: COMMON NORMALS: regular rate, regular rhythm and No murmurs present (Cardio) RATE: regular rate RHYTHM: regular rhythm GI: COMMON NORMALS: Normal to inspection, nondistended, normoactive bowel sounds present, Soft to palpation, non-tender and no masses PALPATION: Yes Soft to palpation Extremity: COMMON NORMALS: normal to inspection and full ROM Neuro: COMMON NORMALS: patient oriented x3, moves all extremities and no focal motor deficits Psych: COMMON NORMALS: mental status grossly normal, Normal thought process present and cooperative THOUGHT PROCESS: Normal thought process present Skin: COMMON NORMALS: no rashes or lesions noted and no wounds GENERAL SKIN EXAM: no rashes or lesions noted Course Vital Signs: Vital signs: Vital Signs Temperature 98.8 F 08/29/19 04:56 Pulse Rate 78 08/29/19 07:11 Respiratory Rate 18 08/29/19 06:05 Blood Pressure 161/62 08/29/19 07:11 Pulse Oximetry 93 08/29/19 07:11 MDM - Nausea/Vomiting/Diarrhea Lab Data: Labs: Lab Results 08/29/19 08/29/19 08/29/19 Range/Units 05:02 05:02 05:53 WBC 14.7 H (4.0-10.0) 10^3/ uL RBC 4.61 (4.1-5.3) 10^6/u L Hgb 14.1 (11.5-15.3) g/dL Hct 42.2 (37.0-47.0) % MCV 91.5 (81-99) fL MCH 30.6 (28.0-34.0) pg MCHC 33.4 (30.0-36.0) g/dL RDW 12.1 (12.1-15.1) % Plt Count 234 (130-400) 10^3/c mm MPV 10.6 H (7.4-10.4) fL Neut % (Auto) 71.6 % Lymph % (Auto) 22.1 % [place] % (Auto) 4.5 % Eos % (Auto) 1.2 % Baso % (Auto) 0.3 % Neut # (Auto) 10.5 H (1.8-7.7) 10^3/u L Lymph # (Auto) 3.2 (0.8-4.8) 10^3/u L [place] # (Auto) 0.7 (0.2-0.9) 10^3/u L Eos # (Auto) 0.2 (0.0-0.8) 10^3/u L Baso # (Auto) 0.1 (0.0-0.1) 10^3/u L Nucleated RBC % (a uto) 0 % Nucleated RBCs # 0.0 /100WBC Sodium 141 (136-145) mmol/L Potassium 3.4 L (3.5-5.1) mmol/L Chloride 99 (98-107) mmol/L Carbon Dioxide 27 (22-29) mmol/L Anion Gap 18.4 (5-19) BUN 13 (8-23) mg/dL Creatinine 0.7 (0.5-0.9) mg/dL Glucose 163 H (65-115) mg/dL Calculated Osmolal ity 292 (285-295) mOsm/k g Calcium 9.7 (8.5-10.5) mg/dL Total Bilirubin 0.5 (0.15-1.2) mg/dL AST 20 (0-32) U/L ALT 13 (0-33) U/L Alkaline Phosphata se 55 (35-105) IU/L Total Protein 6.8 (6.6-8.7) g/dL Albumin 4.5 (3.5-5.2) g/dL Globulin 2.3 (1.3-4.6) g/dL Lipase 12 L (13-60) U/L Urine Color Yellow (Yellow) Urine Appearance Clear (CLEAR) Urine pH 7 (5-7) Ur Specific Gravit y 1.010 (1.005-1.030) Urine Protein Neg (Negative) Urine Glucose (UA) Norm (Normal) Urine Ketones 1+ H (Negative) Urine Blood Neg (Negative) Urine Nitrate Negative (Negative) Urine Bilirubin Neg (NEGATIVE) Urine Urobilinogen Norm (Negative) mg/dL Ur Leukocyte Corin ase Negative (Negative) Discharge Plan Discharge Patient Disposition: Admitted As Inpatient Clinical Impression: Intractable nausea and vomiting, Pancreatic mass Condition: Fair Referrals: Parvez Kumar DO [Primary Care Provider] - 4-7 days Patient Instructions: Acute Nausea and Vomiting (ED) Sign Out Sign Out Data: Patient Sign Out occurred on 08/29/19 at 07:46. Patient's care was discussed, and care was transferred from to Tyler Gonzalez. Coding Level of Care Code ED Journeyman Wireman for Chg Fwd Exam Comprehensive Documented by User: Tyler Gonzalez DO 08/29/19 07:46 HPI - Nausea/Vomiting/Diarrhea General: Chief complaint: Nausea/Vomiting/Diarrhea Stated complaint: n/v Time Seen by Provider: 08/29/19 04:50 [facility] PFSH: Medical History COPD (chronic obstructive pulmonary disease) Currently not in exacerbation. DM type 2 (diabetes mellitus, type 2) She admits herself that she is very reluctant taking any medications, and in fact has been very reluctant to even try to take an acid rosaura. States that she has been trying to control her diabetes with diet and lifestyle, and says that this has been working for her. Appears that her A1c is 8.2, and currently diabetes is poorly controlled. Please work with her to establish additional control by medication on top of her lifestyle measures which does not appear are effective. HLD (hyperlipidemia) Continue statin. HTN (hypertension) With hypovolemia on presentation, blood pressure is actually better in the hospital, possibly with diet. For now her blood pressure medications are discontinued. She is encouraged to continue to maintain cardiac diet. Please continue to monitor blood pressures. Avoid hypovolemia, dehydration. Smoking addiction With dyspepsia, please refer for evaluation by EGD, as well as work-up pancreatic abnormality. Discussed with her regarding cessation. She is unfortunately a very long- term smoker of at least 60 years. Please continue to encourage and support cessation. Surgical History H/O colonoscopy H/O: hysterectomy History of tonsillectomy Hx of shoulder surgery S/P foot surgery, left Family History Other Colon cancer Social History Smoking and tobacco status: current every day smoker cigarettes [ Other cigarette details: Has been trying to quit ] Alcohol intake: never Lives independently: Yes Course Vital Signs: Vital signs: Vital Signs Temperature 98.8 F 08/29/19 04:56 Pulse Rate 78 08/29/19 07:11 Respiratory Rate 18 08/29/19 06:05 Blood Pressure 161/62 08/29/19 07:11 Pulse Oximetry 93 08/29/19 07:11 MDM - Nausea/Vomiting/Diarrhea Lab Data: Labs: Lab Results 08/29/19 08/29/19 08/29/19 Range/Units 05:02 05:02 05:53 WBC 14.7 H (4.0-10.0) 10^3/ uL RBC 4.61 (4.1-5.3) 10^6/u L Hgb 14.1 (11.5-15.3) g/dL Hct 42.2 (37.0-47.0) % MCV 91.5 (81-99) fL MCH 30.6 (28.0-34.0) pg MCHC 33.4 (30.0-36.0) g/dL RDW 12.1 (12.1-15.1) % Plt Count 234 (130-400) 10^3/c mm MPV 10.6 H (7.4-10.4) fL Neut % (Auto) 71.6 % Lymph % (Auto) 22.1 % [place] % (Auto) 4.5 % Eos % (Auto) 1.2 % Baso % (Auto) 0.3 % Neut # (Auto) 10.5 H (1.8-7.7) 10^3/u L Lymph # (Auto) 3.2 (0.8-4.8) 10^3/u L [place] # (Auto) 0.7 (0.2-0.9) 10^3/u L Eos # (Auto) 0.2 (0.0-0.8) 10^3/u L Baso # (Auto) 0.1 (0.0-0.1) 10^3/u L Nucleated RBC % (a uto) 0 % Nucleated RBCs # 0.0 /100WBC Sodium 141 (136-145) mmol/L Potassium 3.4 L (3.5-5.1) mmol/L Chloride 99 (98-107) mmol/L Carbon Dioxide 27 (22-29) mmol/L Anion Gap 18.4 (5-19) BUN 13 (8-23) mg/dL Creatinine 0.7 (0.5-0.9) mg/dL Glucose 163 H (65-115) mg/dL Calculated Osmolal ity 292 (285-295) mOsm/k g Calcium 9.7 (8.5-10.5) mg/dL Total Bilirubin 0.5 (0.15-1.2) mg/dL AST 20 (0-32) U/L ALT 13 (0-33) U/L Alkaline Phosphata se 55 (35-105) IU/L Total Protein 6.8 (6.6-8.7) g/dL Albumin 4.5 (3.5-5.2) g/dL Globulin 2.3 (1.3-4.6) g/dL Lipase 12 L (13-60) U/L Urine Color Yellow (Yellow) Urine Appearance Clear (CLEAR) Urine pH 7 (5-7) Ur Specific Gravit y 1.010 (1.005-1.030) Urine Protein Neg (Negative) Urine Glucose (UA) Norm (Normal) Urine Ketones 1+ H (Negative) Urine Blood Neg (Negative) Urine Nitrate Negative (Negative) Urine Bilirubin Neg (NEGATIVE) Urine Urobilinogen Norm (Negative) mg/dL Ur Leukocyte Corin ase Negative (Negative) Discharge Plan Discharge Patient Disposition: Admitted As Inpatient Clinical Impression: Intractable nausea and vomiting, Pancreatic mass Condition: Fair Referrals: Parvez Kumar DO [Primary Care Provider] - 4-7 days Patient Instructions: Acute Nausea and Vomiting (ED) Sign Out Sign Out Data: Patient Sign Out occurred on 08/29/19 at 07:46. Patient's care was discussed, and care was transferred from to Tyler Gonzalez. Coding Level of Care Code ED Journeyman Wireman for Lamar Gonsales Exam Comprehensive
[2019-08-29] MEDS: ondansetron 2 mg/ML SDV 2 mL 4 MG IVP ×2 (05:11→11:04)
[2019-08-29] MEDS: sodium chloride 0.9% 1,000 ML 999 ML IV (05:11)
[2019-08-29 05:13] LABS: Basophils # 0.1 10^3/uL (0.0-0.1); Basophils % 0.3 %; Eosinophils # 0.2 10^3/uL (0.0-0.8); Eosinophils % 1.2 %; Hematocrit 42.2 % (37.0-47.0); Hemoglobin 14.1 g/dL (11.5-15.3); Lymphocytes # 3.2 10^3/uL (0.8-4.8); Lymphocytes % 22.1 %; Mean Corpuscular HGB Conc 33.4 g/dL (30.0-36.0); Mean Corpuscular Hemoglobin 30.6 pg (28.0-34.0); Mean Corpuscular Volume 91.5 fL (81-99); Mean Platelet Volume 10.6 fL (7.4-10.4); Monocytes # 0.7 10^3/uL (0.2-0.9); Monocytes % 4.5 %; Neutrophils # 10.5 10^3/uL (1.8-7.7); Neutrophils % 71.6 %; Nucleated Red Blood Cells % 0 %; Platelet Count 234 10^3/cmm (130-400); Red Blood Count 4.61 10^6/uL (4.1-5.3); Red Cell Distribution Width 12.1 % (12.1-15.1); White Blood Count 14.7 10^3/uL (4.0-10.0)
[2019-08-29] MEDS: metoclopramide 5 mg/mL SDV 2 mL IVP (05:45)
[2019-08-29] MEDS: diphenhydrAMINE 50 mg/mL SDV 1mL 25 MG IVP (05:45)
[2019-08-29 05:46] LABS: Alanine Aminotransferase 13 U/L (0-33); Albumin Level 4.5 g/dL (3.5-5.2); Alkaline Phosphatase 55 IU/L (35-105); Anion Gap 18.4 (5-19); Aspartate Amino Transferase 20 U/L (0-32); Blood Urea Nitrogen 13 mg/dL (8-23); Calcium 9.7 mg/dL (8.5-10.5); Carbon Dioxide 27 mmol/L (22-29); Chloride 99 mmol/L (98-107); Creatinine Clr Calc Pharmacy 48.7329; Globulin 2.3 g/dL (1.3-4.6); Glucose 163 mg/dL (65-115); Lipase 12 U/L (13-60); Osmolality Calculated 292 mOsm/kg (285-295); Potassium 3.4 mmol/L (3.5-5.1); Sodium 141 mmol/L (136-145); Total Bilirubin 0.5 mg/dL (0.15-1.2); Total Protein 6.8 g/dL (6.6-8.7)
[2019-08-29 06:17] LABS: Add Urine Microscopic? NO
[2019-08-29 06:28] LABS: Bilirubin Urine Neg (NEGATIVE); Blood Urine Neg (Negative); Glucose Urine UA Norm (Normal); Ketones Urine 1+ (Negative); Leukocyte Esterase Urine Negative (Negative); Nitrate Urine Negative (Negative); Protein Urine Neg (Negative); Urine Appearance Clear (CLEAR); Urine Color Yellow (Yellow); Urobilinogen Urine Norm (Negative); pH Urine 7 (5-7)
[2019-08-29] MEDS: metoclopramide 5 mg/mL SDV 2 mL 10 MG IVP ×3 (07:43→17:00)
--- NOTE | 2019-08-29 08:14 | CT_ITS ---
WS: [id number] CT ABDOMEN PELVIS TECHNIQUE: Contrast-enhanced CT of the abdomen and pelvis with coronal and sagittal reformatted image s. CLINICAL INFORMATION: pancreatic mass COMPARISON: August 25, 2019 DLP: 473.[address] scans at [facility] use at least one of these dose optimization techniques: automat ed exposure control; mA and/or kV adjustment per patient size (includes targeted exams where dose is matched to clinical indication); or iterative reconstruction. FINDINGS: Again seen is the ill-defined low-attenuation heterogeneous enhancing low-attenuation process in the body of the pancreas measuring 1.7 x 2.4 CM. Differential considerations are unchanged and include ne oplasm versus focal pancreatitis. Mild pancreatic ductal dilatation. Recommend correlation pancreatic markers. Narrowing of the adjacent splenic vein is unchanged. Chronic ossifications in the head of t he pancreas consistent with chronic pancreatitis. Distention of the stomach with air-fluid level. Air-fluid levels with distention of the proximal duod enum. This transitions to more normal caliber small bowel at the level of the pancreas. Gastric dilat ation has progressed since August 25, 2019. Normal caliber abdominal aorta. Aortic calcification. Normal adrenal glands. No hydronephrosis. Bilat eral renal cysts. Small amount of free fluid in the pelvis. Lung bases are well aerated. CT/CT abdomen pelvis w con* [id number] IMPRESSION: 1. Stable low-attenuation heterogeneous enhancing pancreatic body mass measuri ng 2.4 x 1.7 cm. Considerations are unchanged include pancreatic neoplasm versu s focal pancreatitis. Stable pancreatic ductal dilatation. 2. Air-fluid levels in the stomach and proximal duodenum with transition point in the third portion of the duodenum likely due to partial obstruction versus ileus due to the pancreatic process. This is slightly progressed from previous. 3. Small amount of free fluid in the pelvis. 4. Calcifications in the pancreatic head consistent with chronic pancreatitis. 5. No other significant interval changes. 6. Bilateral renal cysts. No hydronephrosis.
--- NOTE | 2019-08-29 08:17 | PC.NURSE ---
nurse not available to take report on [facility] at this time
[2019-08-29] MEDS: iohexol 300 mg/mL 100 mL Btl IV (08:37)
--- NOTE | 2019-08-29 08:39 | PC.NURSE ---
pt to CT by stretcher with tech
[2019-08-29] MEDS: sodium chloride 0.9% 1,000 ML 125 ML IV (09:46)
[2019-08-29 10:53] LABS: Glucose Point of Care 143 mg/dL (70-110)
--- NOTE | 2019-08-29 10:54 | PM.HP ---
Providers/Chief Complaint Admitting Physician: Cristina Horowitz DO Primary Care Provider: Parvez Kumar DO Chief Complaint: INTRACTABLE N/V History of Present Illness Misa Calzada is a 83 year old female with a past medical history of COPD, hyperlipidemia and hypertension as well as tobacco abuse that presented to the emergency department today for intractable nausea vomiting. Patient was recently hospitalized on 08/25/2019 through 08/26/2019. Diagnosed with pancreatic mass at that time. Patient was discharged home with close follow-up with her primary care provider and set up for an outpatient MRCP to exclude possible malignancy of the pancreas versus acute on chronic pancreatitis. During that time she was given IV hydration and tolerated slow advancement in her diet. She reports today that she has had continued issues after discharge which resulted in presentation to the ED. She denies any fevers or chills, no sick contacts. Reported that she lives at home by herself. She stated that she did not take any of her medications today but she was able to keep them down yesterday. Patient reports having dark and tarry like stools over the past couple of days along with increasing vomiting and concern for coffee-ground emesis at times. Patient was seen and evaluated in the emergency department and placed on observation due to concern for intractable nausea vomiting. No further imaging was performed. Discussed at time of admission and recommended repeat imaging of the abdomen. Review of Systems Const: Denies: fever(s) or chills Eyes: Denies: change in vision ENMT: Denies: nasal congestion Card: Denies: chest pain, palpitations or edema Resp: Denies: dyspnea, productive cough or hemoptysis GI: Reports: nausea, vomiting and melena; Denies: abdominal pain, diarrhea, constipation or hematochezia : Denies: dysuria or hematuria Musc: Denies: extremity pain or muscle cramps Skin/Breast: Denies: rash or new lesions Neuro: Denies: headache(s) or dizziness Psych: Denies: anxiety or depression Endo: Denies: polyuria or hot flashes Fausto/Lymph: Denies: easy bruising or easy bleeding Medications/Allergies Home Medications Medication Instructions Recorded Confirmed Last Taken Type Mucinex 600 mg PO Q12H PRN 08/25/19 08/25/19 08/24/19 History Multiple Vitamin, Womens 1 tab PO DAILY 08/25/19 08/25/1920 History Spiriva with HandiHaler 18 mcg INHALATION DAILY 08/25/19 08/25/19 08/24/19 History Vitamin D3 50 mcg PO DAILY 08/25/19 08/25/19 08/24/19 History atorvastatin 20 mg PO DAILY 08/25/19 08/25/19 08/24/19 History famotidine 20 mg PO BID #60 tab 08/26/19 Unknown Rx nicotine 1 patch TRANSDERMA Q24H #30 each 08/26/19 Unknown Rx nicotine (polacrilex) 2 mg BUCCAL Q1H PRN #60 each 08/26/19 Unknown Rx ondansetron HCl [Zofran] 4 mg PO Q8H PRN 5 Days #30 tab 08/26/19 Unknown Rx Allergies Allergy/AdvReac Type Severity Reaction Status Date / Time No Known Allergies Allergy Verified 08/26/19 01:40 PFSH Acute PFSH: Medical History COPD (chronic obstructive pulmonary disease) DM type 2 (diabetes mellitus, type 2) A1c is 8.2 HLD (hyperlipidemia) Continue statin. HTN (hypertension) Smoking addiction With dyspepsia, please refer for evaluation by EGD, as well as work-up pancreatic abnormality. Discussed with her regarding cessation. She is unfortunately a very long-term smoker of at least 60 years. Please continue to encourage and support cessation. Surgical History (Updated 08/29/19 @ 11:03 by Cristina Horowitz DO) H/O colonoscopy H/O: hysterectomy due to fibroids History of tonsillectomy Hx of shoulder surgery Left S/P foot surgery, left Family History (Updated 08/29/19 @ 11:08 by Cristina Horowitz DO) Father Cancer Colon cancer Mother CAD (coronary artery disease), Onset Age: 59 Other Colon cancer Social History (Updated 08/29/19 @ 11:08 by Cristina Horowitz DO) Smoking and tobacco status: current every day smoker cigarettes Number of cigarettes per day: 6-10 Alcohol intake: never Substance/Drug Use: never Lives independently: Yes Vitals/I&O/Wt Last Vital Signs Temp 98.3 F 08/29/19 08:00 Pulse 76 08/29/19 08:42 Resp 20 H 08/29/19 10:40 BP 149/45 08/29/19 08:42 Pulse Ox 93 08/29/19 08:42 08/28/19 08/29/19 08/29/19 22:59 06:59 14:59 Intake Total 1000 / 1000 Balance 1000 / 1000 Weight last 48 hrs Weight 54.431 kg Physical Exam Const: COMMON NORMALS: patient oriented x3 and alert GENERAL APPEARANCE: ill appearing ORIENTATION/CONSCIOUSNESS: Yes awake, Yes oriented to person, Yes oriented to place and Yes oriented to time HENMT: COMMON NORMALS: normocephalic and atraumatic HEAD & SCALP: normocephalic and atraumatic Eye: COMMON NORMALS: Equal, round and reactive pupils present PUPIL: Yes Equal, round and reactive pupils present Neck/C-Spine: COMMON NORMALS: supple GENERAL: Yes normal visual inspection Resp: COMMON NORMALS: normal respiratory effort and clear to auscultation bilaterally EFFORT & INSPECTION: Yes able to speak in complete sentences AUSCULTATION: clear to auscultation bilaterally, no rhonchi and no wheezes Cardio: COMMON NORMALS: regular rate and regular rhythm RATE: regular rate RHYTHM: regular rhythm OTHER: Grade 2 systolic murmur GI: COMMON NORMALS: Soft to palpation and non-tender INSPECTION: No abdominal distension AUSCULTATION: Yes normoactive bowel sounds PALPATION: Yes Soft to palpation : BLADDER/KIDNEY EXAM: Yes no CVA tenderness Back/Pelvis: COMMON NORMALS: no CVA tenderness Extremity: COMMON NORMALS: no clubbing, cyanosis or edema and no calf tenderness Neuro: COMMON NORMALS: patient oriented x3, CN's II-XII intact bilaterally, moves all extremities and no focal motor deficits SENSORIUM/ORIENTATION: Yes alert, Yes oriented to person, Yes oriented to place and Yes oriented to time SPEECH: speech normal Psych: COMMON NORMALS: mental status grossly normal and cooperative Skin: COMMON NORMALS: no rashes or lesions noted Data : 08/29/19 05:02 08/29/19 05:02 A&P Assessment and plan (1) Pancreatic mass: Heterogenous enhancing pancreatic body mass measuring 2.4 x 1.7 cm, concern for pancreatic neoplasm Patient does have pancreatic ductal dilatation, will further evaluate with MRCP scheduled for today Discussed with general surgery for consultation. NPO Status: Acute (2) Intractable nausea and vomiting: Believed to be multifactorial with concern for pancreatic mass and partial SBO NPO and NG tube placed Discussion with general surgery for consultation. Status: Acute (3) Hypokalemia: Continue with IV fluids, normal saline with 20 mEq of potassium Status: Acute (4) Dehydration: IV hydration as above Status: Acute (5) HTN (hypertension): With patient's decreased oral intake will hold off on any antihypertensives at this time and continue to monitor closely Status: Acute (6) DM type 2 (diabetes mellitus, type 2): Sliding scale insulin if needed Status: Acute (7) COPD (chronic obstructive pulmonary disease): No chronic oxygen requirements, continues to smoke a half a pack per day. Patient is not interested in quitting. Without acute exacerbation Status: Acute Additional A&P Information Reported melena with reported coffee-ground emesis: Continue IV PPI every 12 hours, discussed with general surgeon and consider endoscopy. Patient's hemoglobin remained stable at this time Systolic murmur: Evaluate further with echocardiogram Previously diagnosed obstructive sleep apnea: Noncompliant with CPAP at home, will likely be unable to tolerate at this time Hypokalemia: Continue with potassium replacement DVT prophylaxis: SCDs, no pharmacologic prophylaxis due to concern for melanotic stools Diet: N.p.o. CODE STATUS: DNI/DNI, allow natural . This was discussed with patient on admission Attestations Medical Necessity Statement*: Patient requires hospitalization due to intractable nausea and vomiting, expected stay less than 2 midnights Coding Level of Care Code Acute Associate Account Manager for Chg Fwd Exam Comprehensive Diagnoses Pancreatic mass K86.89 Intractable nausea and vomiting R11.2 Hypokalemia E87.6 Dehydration E86.0 HTN (hypertension) I10 DM type 2 (diabetes mellitus, type 2) E11.9 COPD (chronic obstructive pulmonary disease) J44.9
[2019-08-29] MEDS: pantoprazole 40 mg SDV IVP ×2 (11:08→23:17)
[2019-08-29] MEDS: sodium chlor 0.9% + KCl 20 mEq 20 MEQ/1,000 ML BAG 75 MEQ IV ×2 (11:08→23:17)
--- NOTE | 2019-08-29 13:35 | P.PN_ITS ---
Vitals/I&O/Wt Last Vital Signs Temp 98.3 F 08/29/19 11:35 Pulse 82 08/29/19 13:16 Resp 20 H 08/29/19 11:35 BP 180/64 08/29/19 11:35 Pulse Ox 94 08/29/19 13:16 08/28/19 08/29/19 08/29/19 22:59 06:59 14:59 Intake Total 1000 / 1000 Balance 1000 / 1000 Weight last 48 hrs Weight 120 lb Data : 08/29/19 05:02 08/29/19 05:02 Coding Level of Care Code Acute Examining Chair Assembler for Divineg Dru
--- NOTE | 2019-08-29 14:28 | PC.NURSE ---
MRI called to inform this nurse that patient could not tolerate laying flat without severe nausea and vomiting. Emesis was described and brown/black in color. Dr. Horowitz notified via [employer] [place] message.
--- NOTE | 2019-08-29 14:29 | P.CONIM_ITS ---
Providers/Reason For Consult Consulting Physican/Specialty*: Primo Boss MD Reason for Consult*: Hematemesis and concern for bowel obstruction Attending Physician: Cristina Horowitz DO Primary Care Provider: Parvez Kumar DO History of Present Illness History of Present Illness Chief Complaint: Intractable nausea and vomiting History of present illness: Ms. Misa Calzada is a pleasant 83 year old female with associated multiple medical comorbidities and history of chronic tobacco abuse over 60-year, patient has been having nausea and vomiting for the past 2 to 3 weeks and she was recently hospitalized last Sunday through Sunday was discharged home with the plan follow-up with her primary care provider and to obtain an MRCP as an outpatient, unfortunately patient return back to the hospital with worsening symptoms of vomiting and consequently she was admitted to the hospitalist service for further evaluation and hydration. Patient reports that she had history of coffee-ground and some blood detected as occult in stool today per her report, patient denies history of family history of pancreatic cancer yet she does report her father with colon cancer. General surgery was consulted for further evaluation and potential management due to the CT scan findings done today concerning for bowel obstruction CT scan abdomen and pelvis 08/25/2019 There is abnormality in the body of the pancreas as described above. Differential considerations would include neoplasm as well as pancreatitis and perhaps pseudocyst. Clinical correlation is advised. Correlation with amylase and lipase are suggested.If there is desire for further evaluation, a MRI with and without IV contrast could be performed. There are benign bilateral renal cysts. No follow-up imaging is recommended based on imaging criteria. CT scan abdomen and pelvis 08/29/2019 1. Stable low-attenuation heterogeneous enhancing pancreatic body mass measuring 2.4 x 1.7 cm. Considerations are unchanged include pancreatic neoplasm versus focal pancreatitis. Stable pancreatic ductal dilatation. 2. Air-fluid levels in the stomach and proximal duodenum with transition point in the third portion of the duodenum likely due to partial obstruction versus ileus due to the pancreatic process. This is slightly progressed from previous. 3. Small amount of free fluid in the pelvis. 4. Calcifications in the pancreatic head consistent with chronic pancreatitis. 5. No other significant interval changes. 6. Bilateral renal cysts. No hydronephrosis. Review of Systems General: Reports: 10 or more systems reviewed and unremarkable except in HPI and below Meds/Allergies Home Medications and Allergies Home Medications Medication Instructions Recorded Confirmed Last Taken Type Mucinex 600 mg PO Q12H PRN 08/25/19 08/25/19 08/24/19 History Multiple Vitamin, Womens 1 tab PO DAILY 08/25/19 08/25/19 08/24/19 History Spiriva with HandiHaler 18 mcg INHALATION DAILY 08/25/19 08/25/19 08/24/19 History Vitamin D3 50 mcg PO DAILY 08/25/19 08/25/19 08/24/19 History atorvastatin 20 mg PO DAILY 08/25/19 08/25/19 08/24/19 History famotidine 20 mg PO BID #60 tab 08/26/19 Unknown Rx nicotine 1 patch TRANSDERMA Q24H #30 each 08/26/19 Unknown Rx nicotine (polacrilex) 2 mg BUCCAL Q1H PRN #60 each 08/26/19 Unknown Rx ondansetron HCl [Zofran] 4 mg PO Q8H PRN 5 Days #30 tab 08/26/19 Unknown Rx Allergies Allergy/AdvReac Type Severity Reaction Status Date / Time No Known Allergies Allergy Verified 08/29/19 17:56 Current Medications Current Medications Generic Name Dose Route Start Last Admin Trade Name Freq PRN Reason Stop Dose Admin Potassium Chloride/Sodium Chloride 20 meq in 1,000 mls @ 75 mls/hr 08/29/19 11:00 08/29/19 11:08 Sodium Chlor 0.9% + Kcl 20 Meq IV 75 mls/hr .[id number] NIKKI Administration Insulin Aspart 0 unit 08/29/19 12:00 08/29/19 14:22 Novolog SUBCUT Not Given TIDWM NIKKI Protocol Metoclopramide HCl 10 mg 08/29/19 07:43 08/29/19 09:45 Reglan IVP 10 mg Q6H PRN Administration NAUSEA Ondansetron HCl 4 mg 08/29/19 07:43 08/29/19 11:04 Zofran IVP 4 mg Q6H PRN Administration NAUSEA AND VOMITING Pantoprazole Sodium 40 mg 08/29/19 11:00 08/29/19 11:08 Protonix IVP 40 mg Q12H NIKKI Administration PFSH Acute PFSH: Medical History COPD (chronic obstructive pulmonary disease) DM type 2 (diabetes mellitus, type 2) A1c is 8.2 HLD (hyperlipidemia) Continue statin. HTN (hypertension) Smoking addiction With dyspepsia, please refer for evaluation by EGD, as well as work-up pancreatic abnormality. Discussed with her regarding cessation. She is unfortunately a very long- term smoker of at least 60 years. Please continue to encourage and support cessation. Surgical History H/O colonoscopy H/O: hysterectomy due to fibroids History of tonsillectomy Hx of shoulder surgery Left S/P foot surgery, left Family History Father Cancer Colon cancer Mother CAD (coronary artery disease), Onset Age: 59 Other Colon cancer Social History Smoking and tobacco status: current every day smoker cigarettes Number of cigarettes per day: 6-10 Alcohol intake: never Substance/Drug Use: never Lives independently: Yes Vitals/I&O/Wt Last Vital Signs Temp 98.3 F 08/29/19 11:35 Pulse 82 08/29/19 13:16 Resp 20 H 08/29/19 11:35 BP 180/64 08/29/19 11:35 Pulse Ox 94 08/29/19 13:16 08/28/19 08/29/19 08/29/19 22:59 06:59 14:59 Intake Total 1000 / 1000 Balance 1000 / 1000 Weight last 48 hrs Weight 120 lb Physical Exam Narrative: EXAM NARRATIVE: Patient is conscious alert oriented X3 BMI 20 Patient looks wasted Head and neck examination PERRLA no masses no cervical lymphadenopathy no jaundice NG in place showing nonbloody gastric content Cardiac examination audible S1-S2 no murmurs no gallops no arrhythmias Chest is clear bilateral,abscence of Rhonchi or wheezes,no surgical emphysema Abdomen nontender nondistended soft no organomegaly guarding or rigidity/no signs of peritonitis A&P Assessment and plan (1) Intractable nausea and vomiting: After thorough history physical examination and reviewing the chart and images with my personal interpretation after further discussion with Dr. Garcia radiologist I would recommend highly to obtain an upper GI study to assess with certainty about the exact location of the obstruction and to evaluate for the contrast going through delineating and potential underlying partial bowel obstruction at the D3-D4 level. Most likely that the pancreatic mass is encroaching on the duodenum causing this obstruction At this point I do not see an indication for EGD, I would like to understand her underlying surgical anatomy before any potential intervention. Status: Acute (2) Pancreatic mass: Patient should benefit from an MRCP to to delineate her underlying surgical anatomy Likely this represents pancreatic cancer due to the CA 19 being that high and based on the imaging studies Patient would benefit from hepatobiliary and pancreatic surgery subspecialty for further evaluation and potential intervention if the mass is resectable which would be likely more determined by further imaing. An alternative for the MRCP would be a CT scan pancreas protocol with 3 mm cuts. If the mass is resectable and proved to be a pancreatic cancer which likely that is the case patient may benefit from gastrojejunostomy as a palliation to bypass the potential obstruction another potential alternative would be endoscopic stent placement. Thank you for consulting general surgery to participate taking care Ms. Fulton Status: Acute Consult Attestations Medical Necessity Statement: Per hospitalist service Time Spent in Patient Care: (>than 50% of time spent in counselling and/or direct pt care on unit) . Coding Level of Care Code Acute Sheep Sticker for Chg Fwd Diagnoses Intractable nausea and vomiting R11.2 Pancreatic mass K86.89
--- NOTE | 2019-08-29 15:31 | FLR_ITS ---
PROCEDURE INFORMATION: Exam: FL Upper Gastrointestinal Tract without KUB Exam date and time: 08/29/2019 9:06 PM Age: 83 years old Clinical indication: Abnormal findings; Abd distention; Additional info: Rule out doudenal obstruction. Limited ugi, no fluoro TECHNIQUE: Imaging protocol: Radiologic examination, gastrointestinal tract, upper with or without delayed images, without KUB. Guided with fluoroscopy. Contrast material: GASTROGRAFIN; Contrast volume: 30 ml; Contrast route: NG TUBE; COMPARISON: CT abdomen pelvis w con* [id number] 08/29/2019 8:28 AM RADIATION DOSE METRICS: Fluoroscopy time: 0 Number of fluoro spot images: 4 images Reference air kerma (BEL): Not provided FINDINGS: Sort Operations Supervisor: Not provided Esophagus: Not included Stomach: There is an NG tube in the stomach. The stomach is unremarkable without significant mass or stricture. Rugal folds are normal. Intestine: Only 1 image includes the small bowel and the visualized duodenum is unremarkable without mass or stricture. Duodenal bulb is unemarkable. The distended appearance of the duodenum on the CT scan earlier today is no longer identified. There is contrast in the proximal small bowel/jejunum and proximal ileum). No bowel obstruction. FL/FL upper GI gastrografin [id number] IMPRESSION: Stomach is unremarkable. The duodenum and loops of small bowel are only well visualized on 1 of the images and are unremarkable but and less distended compared to the prior CT scan. No obstruction.
--- NOTE | 2019-08-29 15:37 | XRR_ITS ---
PROCEDURE INFORMATION: Exam: XR Chest, 1 View Exam date and time: 08/29/2019 4:15 PM Age: 83 years old Clinical indication: Device placement; Ng tube; Additional info: For ng tube placement TECHNIQUE: Imaging protocol: XR of the chest Views: 1 view. COMPARISON: CR XR chest 1V portable [id number] 08/25/2019 1:59 PM FINDINGS: Tubes, catheters and devices: There is an orogastric tube with tip in the stomach. Lungs: There is unchanged hyperinflation lungs with interstitial prominence compatible probable mild fibrosis. No airspace consolidation or CHF. Pleural space: Unremarkable. No pleural effusion. No pneumothorax. Heart/Mediastinum: There is unchanged mild cardiomegaly. Bones/joints: No acute abnormality. XR/XR chest 1V [id number] IMPRESSION: 1. There is an orogastric tube with tip in the stomach. 2. Unchanged hyperinflation and probable fibrosis.
[2019-08-29 16:26] LABS: Glucose Point of Care 152 mg/dL (70-110)
[2019-08-29] MEDS: phenol oral Spray 177 mL 3 SPRAY MUCOUS MEM ×2 (17:46→21:38)
[2019-08-29] MEDS: diatrizoate meglumine 30 mL Sol PO (18:15)
[2019-08-29 21:04] LABS: Glucose Point of Care 117 mg/dL (70-110)
[2019-08-30] VITALS (12 sets, daily range): BP systolic 150–178; BP diastolic 50–62; PULSE 63–76; RESP 16–18; TEMP 36.7–37.4; O2SAT 90–93
[2019-08-30] MEDS: metoclopramide 5 mg/mL SDV 2 mL 10 MG IVP (00:09)
[2019-08-30] MEDS: morphine 4 mg/mL SDV 1 mL 2 MG IVP ×2 (00:17→07:51)
[2019-08-30 06:09] LABS: Basophils % 0.4 %; Eosinophils # 0.1 10^3/uL (0.0-0.8); Eosinophils % 1.3 %; Hemoglobin 12.9 g/dL (11.5-15.3); Lymphocytes # 2.4 10^3/uL (0.8-4.8); Lymphocytes % 21.4 %; Mean Corpuscular HGB Conc 33.9 g/dL (30.0-36.0); Mean Corpuscular Hemoglobin 31.6 pg (28.0-34.0); Mean Corpuscular Volume 93.1 fL (81-99); Mean Platelet Volume 10.2 fL (7.4-10.4); Monocytes # 0.8 10^3/uL (0.2-0.9); Monocytes % 7.3 %; Neutrophils # 7.7 10^3/uL (1.8-7.7); Neutrophils % 69.3 %; Nucleated Red Blood Cells % 0 %; Platelet Count 169 10^3/cmm (130-400); Red Blood Count 4.08 10^6/uL (4.1-5.3); Red Cell Distribution Width 12.2 % (12.1-15.1)
[2019-08-30 06:31] LABS: Alanine Aminotransferase 10 U/L (0-33); Albumin Level 3.6 g/dL (3.5-5.2); Alkaline Phosphatase 41 IU/L (35-105); Anion Gap 15.4 (5-19); Aspartate Amino Transferase 12 U/L (0-32); Blood Urea Nitrogen 13 mg/dL (8-23); Calcium 8.8 mg/dL (8.5-10.5); Carbon Dioxide 26 mmol/L (22-29); Chloride 106 mmol/L (98-107); Globulin 2.1 g/dL (1.3-4.6); Glucose 119 mg/dL (65-115); Osmolality Calculated 295 mOsm/kg (285-295); Potassium 3.4 mmol/L (3.5-5.1); Sodium 144 mmol/L (136-145); Total Bilirubin 0.4 mg/dL (0.15-1.2); Total Protein 5.7 g/dL (6.6-8.7)
[2019-08-30 06:38] LABS: Glucose Point of Care 110 mg/dL (70-110)
--- NOTE | 2019-08-30 06:55 | P.PN_ITS ---
Subjective Subjective: Interval history: Patient complains of sore throat due to the NG irritation, Chloraseptic has been ordered already Upper GI study was limited and showed: Stomach is unremarkable. The duodenum and loops of small bowel are only well visualized on 1 of the images and are unremarkable but and less distended compared to the prior CT scan. No obstruction. Not much coming from the NG Vitals/I&O/Wt Last Vital Signs Temp 98.4 F 08/30/19 04:00 Pulse 69 08/30/19 04:00 Resp 18 08/30/19 04:00 BP 152/62 08/30/19 04:00 Pulse Ox 90 08/30/19 04:00 08/29/19 08/29/19 08/30/19 14:59 22:59 06:59 Intake Total 1000 / 1000 911.25 / 1911.25 Output Total 900 / 900 350 / 1250 Balance 1000 / 1000 -900 / 100 561.25 / 661.25 Weight last 48 hrs Weight 130 lb 7 oz Weight 120 lb Physical Exam Narrative: EXAM NARRATIVE: Patient is conscious alert oriented X3 BMI 22 Head and neck examination PERRLA no masses no cervical lymphadenopathy no jaundice No evidence of Virchow's LN enalrgment NG in place with scant amount of gastric content Abdomen nontender nondistended soft no organomegaly guarding or rigidity/no signs of peritonitis Data : 08/30/19 05:50 08/30/19 05:50 A&P Assessment and plan (1) Intractable nausea and vomiting: NG adjustment bedside by me as there was a kink Flush NG with 50 mL of saline every 8 hour or as needed maintain functionality Antinausea medication Status: Acute (2) Pancreatic mass: Further evaluation of the pancreatic mass in the form of MRCP or CT scan pancreas protocol Highly recommend refer the patient to hepatobiliary and pancreatic surgery subspecialty for further evaluation for potential resection if indicated. 15:35 MRCP was done and unfortunately was not able to describe the pancreatic pathology as I had expected radiology report due to artifacts, upper GI study is being repeated and I have seen myself the images with the contrast is going through does not necessarily to my eyes rule out underlying obstruction likely it is a partial obstruction. Once the NG is pulled out and started feeding the patient she will have the same problem again, there would be a concern also about her nutrition and one of the options that can be entertained placement of a nasojejunal feeding tube under fluoroscopy for enteric nutrition versus a PICC line and TPN to maximize pat ient's nutrition if she would be going for surgery whether it resection or potential gastrojejunostomy to bypass the obstruction. 15:45 I did discuss in length and in depth with the patient's sons Landry([facility])and Kristofer([facility]) and we had a conference call in the presence of Caroline patient's nurse I did explain for them in details about mom's condition from surgical standpoint of view and I will summarize it in points: 1-patient's condition at this point is relatively stable from surgical status(defer any medical condition to Dr. Houston for further discussion if needed) requiring almost no pain medications and I did explain the pancreatic pathology likely represents cancer of the pancreas less likely to be to the pancreatic cyst pathology. 2-continue to have NG for decompression of the stomach with management of any potential electrolyte imbalances per hospitalist service. 3-nutrition can represent a challenging point where a nasojejunal feeding tube can be attempted by interventional radiology versus a PICC line and start her on TPN versus peripheral parenteral nutrition for potential transfer. 4-patient will require higher level of care in the presence of hepatobiliary and pancreatic surgery service for potential evaluation of resection which I doubt that this mass is resectable and likely the patient would benefit from a palliative gastrojejunostomy that can be done laparoscopically versus open yet to be determined by the hepatobiliary and pancreatic surgery team. 5-upper GI study has been done and showed the contrast to go through the narrowed part likely it is a partial obstruction at the third part of the duodenum, that is not an opportunity to DC the NG and start feeding the patient as she will continue to have the same problem again. The above points have been discussed with the patient's sons and I did explain for them that Dr. Houston hospitalist admitting the patient, between me and him will be coordinating mom's care and likely transfer to higher level of care at a tertiary center would be the goal for the coming few days, determined by the availability of beds at the receiving facility. With regard to the sons questions about coming physically and see their mom I left it to them for their convenience to discuss it among the family and Kristofer coming from [facility] is willing to drive about 18 hours to come over and certainly that is appreciated. Assurance and education All questions have been answered and all concerns have been addressed to patient's satisfaction as well as her sons. After further discussion the case with Dr. Garcia our radiologist he believes that upper GI study shows potential obstruction at third part of the duodenum after he reviewed all images including the MRI and CT scans he believes that there might be infiltrating process from the pancreatic mass into the lumen of the third part of the duodenum. Pharmacologic DVT prophylaxis patient is high risk for DVT/PE Patient can have some sips and chips Thank you for consulting general surgery to participate taking care Ms. Fulton Status: Acute Attestations Medical Necessity Statement*: Per hospitalist service Time Spent in Patient Care: 16 - 35 minutes (>than 50% of time spent in counselling and/or direct pt care on unit) . Coding Level of Care Code Acute Manuscripts Archivist for Lamar Gonsales Diagnoses Intractable nausea and vomiting R11.2 Pancreatic mass K86.89
[2019-08-30] MEDS: phenol oral Spray 177 mL 3 SPRAY MUCOUS MEM ×2 (07:18)
--- NOTE | 2019-08-30 10:00 | XR_ITS ---
WS: [id number] ABDOMEN KUB CLINICAL INFORMATION: Pancreatic mass FINDINGS: KUBs obtained at 0, 5 minutes, and 30 minutes post administration of 50 cc Gastrografin through the e xisting enteric tube. Initial imaging demonstrates normal filling of the stomach which is decompressed today. Normal filli ng of the first and second portions of the duodenum which are normal caliber today. At the third/four th portion of the duodenum at the ascending segment the duodenum appears partially obstructed and tet hered, adjacent to the previously described pancreatic mass on the recent CT and MRI. Partial obstruc tion of contrast transit at this level on the initial imaging. On the 30 minute imaging, contrast does traverse the narrowed segment into the distal duodenum and du odenal jejunal junction. Contrast is seen in the proximal jejunum in the left upper quadrant. Enteric tube with tip in the stomach. Discussed with Primo Boss MD at 08/30/2019 4:14 PM. XR/XR KUB [id number] Impression: 1. Partial obstruction/invasion of the ascending portion third-fourth segment of the duodenum at the level of the previously described pancreatic mass. This results in partial obstruction of contrast with luminal narrowing. 2. Stomach and duodenum are decompressed today via enteric tube. 3. Contrast does traverse distal to the narrowing into the proximal jejunum on the 30 minute imaging.
--- NOTE | 2019-08-30 10:09 | MRR_ITS ---
PROCEDURE INFORMATION: Exam: MR Abdomen Without Contrast, MRCP. Exam date and time: 08/30/2019 10:10 AM Age: 83 years old Clinical indication: Nausea; Additional info: Intractable nausea, abnormal abd films TECHNIQUE: Imaging protocol: MR of the abdomen without contrast. COMPARISON: CT abdomen pelvis w con* [id number] 08/25/2019 3:05:[address] abdomen pelvis w con* [id number] 08/29/2019 8:28:12 AM FINDINGS: Pleura: Small bilateral pleural effusions, right larger than left. Liver: No mass. Gallbladder and bile ducts: No acute findings. No definite gallstones. No ductal dilation. Pancreas: Poorly evaluated secondary to artifact, probable mass/lesion in the mid pancreas, better demonstrated on prior CT exams. No definite ductal dilatation. Intraperitoneal space: No fluid collection. Limited secondary to motion artifact. MR/MR MRCP [id number] IMPRESSION: No biliary obstruction. Suboptimal evaluation of the pancreas. Small bilateral pleural effusions, right larger than left.
[2019-08-30 11:10] LABS: Glucose Point of Care 102 mg/dL (70-110)
[2019-08-30] MEDS: pantoprazole 40 mg SDV IVP ×2 (11:13→22:02)
[2019-08-30] MEDS: sodium chlor 0.9% + KCl 20 mEq 20 MEQ/1,000 ML BAG 75 MEQ IV (11:16)
--- NOTE | 2019-08-30 14:09 | XR_ITS ---
WS: [id number] CHEST XRAY TECHNIQUE: Portable chest. CLINICAL INFORMATION: hypoxia COMPARISON: August 29, 2019 FINDINGS: Heart: Normal cardiac silhouette. Aortic calcification. Lungs: Chronic emphysematous changes. No acute pulmonary infiltrates. Small bilateral pleural effusio ns right greater than left. These are better seen on the prior MRI from earlier today with compressiv e atelectasis right lower lobe. Calcified granuloma left lower lobe. Enteric tube with tip in the sto mach. Bones: Thoracic scoliosis convex left. XR/XR chest 1V portable [id number] IMPRESSION: 1. Moderate chronic emphysematous changes. No acute pulmonary infiltrates. 2. Small pleural effusions right greater than left better seen on the MRI from earlier today. Compressive atelectasis in the right greater than left lower lo bes on the MRI. 3. Calcified granuloma left lower lobe.
--- NOTE | 2019-08-30 14:33 | USCV_ITS ---
Misa Calzada Age: 83 Gender: F : 1935 Exam Date: 08/30/2019 10:05 Ordering Phys: Cristina Horowitz DO Technologist: Osbaldo Hutchison [place]am Location[place] [facility] [place] Indication: SYST MURMUR BP: 150 / 60 HR: Rhythm: Sinus Technical Quality: Adequate MEASUREMENTS (Male / Female) Normal Values 2D ECHO LV Diastolic Diameter PLAX 2.6 cm 4.2 - 5.9 / 3.9 - 5.3 cm LV Systolic Diameter PLAX 1.8 cm IVS Diastolic Thickness 1.1 cm 0.6 - 1.0 / 0.6 - 0.9 cm IVS Systolic Thickness 1.1 cm LVPW Diastolic Thickness 1.2 cm 0.6 - 1.0 / 0.6 - 0.9 cm LVPW Systolic Thickness 1.4 cm LVOT Diameter 2.0 cm LV Ejection Fraction 2D Teich 59.8 % LA Diameter 3.3 cm LA Width 3.6 cm LA Height 3.5 cm RA Width 3.5 cm RA Height 4.1 cm Aorta at Sinotubular Diameter 3.0 cm M-MODE LV Diastolic Diameter MM 3.5 cm 4.2 - 5.9 / 3.9 - 5.3 cm LV Systolic Diameter MM 2.3 cm LV Ejection Fraction MM Teich 63.5 % IVS Diastolic Thickness MM 0.9 cm 0.6 - 1.0 / 0.6 - 0.9 cm IVS Systolic Thickness MM 1.2 cm LVPW Diastolic Thickness MM 1.3 cm 0.6 - 1.0 / 0.6 - 0.9 cm LVPW Systolic Thickness MM 1.7 cm RV Diastolic Diameter MM 1.8 cm Aortic Annulus Diameter 2.9 cm LA Ao Ratio MM 1.1 MV E Point Septal Separation 0.7 cm DOPPLER AV Peak Velocity 210.0 cm/s LVOT Peak Velocity 133.0 cm/s AV Area Cont Eq vti 2.5 cm squared AV Area Cont Eq pk 2.0 cm squared MV Area PHT 2.7 cm squared Mitral E to A Ratio 0.9 MV E' Velocity 10.0 cm/s Mitral E to MV E' Ratio 15.7 Mitral E to LV E' Lateral Ratio 13.8 Mitral E to LV E' Septal Ratio 18.0 TR Peak Velocity 347.0 cm/s TR Peak Gradient 48.3 mmHg TV Peak E Velocity 74.0 cm/s FINDINGS Left Ventricle Mildly increased septal wall thickness. Mildly increased posterior wall thickness. Moderately decreased midwall fractional shortening. Severely increased left ventricular relative wall thickness. Grade I diastolic dysfunciton. Normal LV wall motion. Right Ventricle The right ventricle is normal in size and function. Right Atrium The right atrium is normal in size. Left Atrium The left atrium is normal in size. Mitral Valve Mitral annular and anterior leaflet clacification. No evidence of mitral stenosis and trace mitral regurgitation. Aortic Valve Mild thickening of aortic valve leaflets without regurgitation or stenosis. Tricuspid Valve Structurally normal tricuspid valve without significant stenosis or regurgitation. Pulmonary artery systolic pressure is normal. Pulmonic Valve Structurally normal pulmonic valve without significant stenosis. There is no pulmonic regurgitation. Pericardium Normal pericardium without effusion. Aorta Normal ascending aorta dimension. CONCLUSIONS Normal left venticular wall motion EF approximately 65%. Grade I diastolic dysfunction. Mild LV hypertrophy. Normal atrial chamber sizes with normal right ventricular chamber size and function. Mitral annular and valvular anterior leaflet calcification and thickening without stenosis and trace mitral regurgitation. Mild calcification of aorti valve leaflets. Normal tricuspid valve function. No pericardial effusion. Dr. Naseem Elmore MD (Electronically Signed) Final Date: 30 Aug 2019 12:48 S
--- NOTE | 2019-08-30 14:40 | PC.CHAP ---
Pastoral Care Encounter/Spiritual Assessment Type of Contact [] Declined granular operator visit [] Patient/Family/Request visit [] Outpatient visit [] Follow-up visit [] Physician referral [] Code/Alert [X] Routine visit [] Staff referral [] Actively dying [] Patient sleeping [] Family support [] [] Out of room [] Palliative care [] [] Receiving care in room [] Pre-surgical visit [] Trauma [] Long length of stay [] ICU visit [] Other: Relational/Emotional Strength [] Patient feels connected with others/family/visitors/staff [] Distress [] Loneliness/isolation [] Abandonment Spirituality of Patient [X] Person of Clarisa [] Attends Scientologist of their Clarisa [X] Believes in Prayer [] Reads Bible or Rastafari materials [] There are Spiritual issues to be addressed Bioinformatics Programmer Interventions [X] Prayer [] Active listening [] Non-anxious presence [] Spiritual/emotional support [] Crisis/trauma care [] Spiritual counseling [] Bereavement support [] Provided bereavement packet [] Provided Bible/devotional materials [] Provided toy/stuffed animal, coloring book to patient or family member [] Provided Communion [] Anointing/[place] [] Salvation [] Completed spiritual assessment [] Other: Impact on Illness or Injury [] Angry [] Fearful [] Anxious [] Often cries [] Exhaustion [] Unable to work [] Unable to attend lutheran [] Unable to walk/stand [] Unable to read [] Unable to drive [] Unable to eat/drink [] Unable to sleep [] Unable to be with family [] Patient intubated [] Other: Summary Time spent with patient
[2019-08-30] MEDS: FUROsemide 10 mg/mL SDV 2mL 20 MG IVP (14:50)
--- NOTE | 2019-08-30 15:45 | XR_ITS ---
WS: [id number] ABDOMEN KUB CLINICAL INFORMATION: Pancreatic mass FINDINGS: KUBs obtained at 0, 5 minutes, and 30 minutes post administration of 50 cc Gastrografin through the e xisting enteric tube. Initial imaging demonstrates normal filling of the stomach which is decompressed today. Normal filli ng of the first and second portions of the duodenum which are normal caliber today. At the third/four th portion of the duodenum at the ascending segment the duodenum appears partially obstructed and tet hered, adjacent to the previously described pancreatic mass on the recent CT and MRI. Partial obstruc tion of contrast transit at this level on the initial imaging. On the 30 minute imaging, contrast does traverse the narrowed segment into the distal duodenum and du odenal jejunal junction. Contrast is seen in the proximal jejunum in the left upper quadrant. Enteric tube with tip in the stomach. Discussed with Primo Boss MD at 08/30/2019 4:14 PM. XR/XR KUB [id number] Impression: 1. Partial obstruction/invasion of the ascending portion third-fourth segment of the duodenum at the level of the previously described pancreatic mass. This results in partial obstruction of contrast with luminal narrowing. 2. Stomach and duodenum are decompressed today via enteric tube. 3. Contrast does traverse distal to the narrowing into the proximal jejunum on the 30 minute imaging.
[2019-08-30] MEDS: diatrizoate meglumine 30 mL Sol PO (15:51)
[2019-08-30 16:51] LABS: Glucose Point of Care 118 mg/dL (70-110)
[2019-08-30] MEDS: enoxaparin 40 mg/0.4 mL Syringe SUBCUT (18:17)
--- NOTE | 2019-08-30 20:57 | P.PN_ITS ---
Subjective Subjective: Interval history: Today no pain or nausea. Incidentally noted to have hypoxia, requiring 3 L, later 2-1/2 of oxygen. She is very scared of returning home for fear of reemergence of symptoms, nausea, vomiting, inability to eat or drink. Vitals/I&O/Wt Last Vital Signs Temp 98.6 F 08/30/19 20:00 Pulse 76 08/30/19 20:00 Resp 18 08/30/19 20:00 BP 152/50 08/30/19 20:00 Pulse Ox 93 08/30/19 20:00 08/30/19 08/30/19 08/30/19 06:59 14:59 22:59 Intake Total 911.25 / 1911.25 898.75 / 898.75 Output Total 350 / 1250 400 / 400 1600 / 2000 Balance 561.25 / 661.25 498.75 / 498.75 -1600 / -1101.25 Weight last 48 hrs Weight 59.165 kg Weight 54.431 kg Physical Exam Const: COMMON NORMALS: no acute distress and patient oriented x3 GENERAL APPEARANCE: anxious NUTRITIONAL APPEARANCE: thin HENMT: COMMON NORMALS: oropharynx normal NOSE: Foreign body present in naris OTHER: NGT in place to LIS Neck/C-Spine: COMMON NORMALS: no JVD Resp: COMMON NORMALS: normal respiratory effort and clear to auscultation bilaterally AUSCULTATION: clear to auscultation bilaterally Cardio: COMMON NORMALS: no JVD, regular rhythm, S1 normal heart sound present, S2 normal heart sound present and No murmurs present (Cardio) RHYTHM: regular rhythm HEART SOUNDS: S1 normal heart sound present and S2 normal heart sound present GI: COMMON NORMALS: Normal to inspection, nondistended, normoactive bowel sounds present, Soft to palpation and non-tender PALPATION: Yes Soft to palpation Extremity: COMMON NORMALS: no joint enlargement and no pedal edema Neuro: COMMON NORMALS: patient oriented x3 and moves all extremities Skin: COMMON NORMALS: no rashes or lesions noted GENERAL SKIN EXAM: no rashes or lesions noted Data : 08/30/19 05:50 08/30/19 05:50 A&P Assessment and plan (1) Pancreatic mass: Heterogenous enhancing 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 Per discussion with surgery. There is also concern regarding invasion into third part of the duodenum. MRI performed today, personally reported that the pancreas not well visualized, however, prescription of surgery with radiology appears to support ongoing concern regarding pancreatic mass being possibly malignancy. Prescription with surgery would benefit from assessment of potential resectability at a tertiary facility. Tomorrow will assess possibility for transfer. Status: Acute (2) Intractable nausea and vomiting: Concern for possibly partial obstruction of third portion of duodenum, although Gastrografin did appear to pass through on upper GI study. Concern is for possible invasion of the pancreatic mass and to third portion of the duodenum. NPO and NG tube msintsinrd to LIS As above. Status: Acute (3) Hypoxia: Needing 3L O2, although previously not on oxygen at home. Somewhat decreased air entry bilaterally, some JVD noted on exam. IV fluids were discontinued, received 1 dose of Lasix 20 mg IV. Chest x-ray shows emphysema, and although normally not on oxygen, has underlying COPD. Add breathing treatments. Status: Acute (4) Hypokalemia: Held IVF for now. Replace w 40 mEq potassium. Continue with IV fluids, normal saline with 20 mEq of potassium Status: Acute (5) Dehydration: Hold IVF for now due to worsening hypoxia. Reassess in AM. Status: Acute (6) HTN (hypertension): Antihypertensives on hold for now. If BP is consistently on the high side may need to add treatment. Status: Acute (7) DM type 2 (diabetes mellitus, type 2): Sliding scale insulin if needed Status: Acute (8) COPD (chronic obstructive pulmonary disease): No chronic oxygen requirements, continues to smoke a half a pack per day. Patient is not interested in quitting. Without acute exacerbation Status: Acute Additional A&P Information Reported melena with reported coffee-ground emesis: For now endoscopy deferred given concern for pancreatic mass with possible invasion into the duodenum. Systolic murmur: echocardiogram with normal EF, grade 1 diastolic dysfunction. Unremarkable valves. Previously diagnosed obstructive sleep apnea: Reported noncompliant with CPAP at home, will likely be unable to tolerate at this time DVT prophylaxis: SCDs, Lovenox, monitor hemoglobin as she is at high risk of thrombosis with suspected pancreatic malignancy. CODE STATUS: DNI/DNI, allow natural . This was discussed with patient on admission. Attestations Medical Necessity Statement*: Continue admission for assessment and management of recurrent nausea, vomiting, suspected partial bowel obstruction with pancreatic mass, with possible invasion into third portion of duodenum. Coding Level of Care Code Acute Outdoor Power Equipment Mechanic for Chg Fwd Diagnoses Pancreatic mass K86.89 Intractable nausea and vomiting R11.2 Hypoxia R09.02 Hypokalemia E87.6 Dehydration E86.0 HTN (hypertension) I10 DM type 2 (diabetes mellitus, type 2) E11.9 COPD (chronic obstructive pulmonary disease) J44.9
[2019-08-30 21:18] LABS: Glucose Point of Care 128 mg/dL (70-110)
[2019-08-30] MEDS: potassium chloride premix 40 MEQ/100 ML PREMIX 25 MEQ IV (21:55)
[2019-08-30] MEDS: lidocaine 1% INJ 20 mL 5 ML IV (21:55)
[2019-08-31] VITALS (11 sets, daily range): BP systolic 148–161; BP diastolic 56–69; PULSE 64–72; RESP 16–18; TEMP 36.6–37.1; O2SAT 92–99
--- NOTE | 2019-08-31 01:25 | XRR_ITS ---
PROCEDURE INFORMATION: Exam: XR Chest, 1 View Exam date and time: 08/31/2019 2:31 AM Age: 83 years old Clinical indication: Device placement; Ng tube; Additional info: Ng placement TECHNIQUE: Imaging protocol: XR of the chest Views: 1 view. COMPARISON: CR XR chest 1V portable [id number] 08/30/2019 3:23 PM FINDINGS: Tubes, catheters and devices: A nasogastric tube is present with its tip at least in the proximal stomach. EKG leads overlie the chest. Lungs: There is a background centrilobular emphysema. Pleural space: Unremarkable. No pleural effusion. No pneumothorax. Heart/Mediastinum: Unremarkable. No cardiomegaly. Bones/joints: Unremarkable. XR/XR chest 1V portable [id number] IMPRESSION: The NG tube extends to a least the proximal stomach.
[2019-08-31] MEDS: morphine 4 mg/mL SDV 1 mL 2 MG IVP ×2 (01:26→15:12)
[2019-08-31] MEDS: ipratropium-albuterol 3 mL Neb INHALATION ×2 (01:55→08:06)
--- NOTE | 2019-08-31 05:32 | PM.PN ---
Subjective Subjective: Interval history: Continues to have NGT to Low intermittent wall suction,otherwise no acute events overnight per nursing report except for some bloody aspirate per NGT at some point. Per patient's words she feels overall better Upper GI study done and showed: 1. Partial obstruction/invasion of the ascending portion third-fourth segment of the duodenum at the level of the previously described pancreatic mass. This results in partial obstruction of contrast with luminal narrowing. 2. Stomach and duodenum are decompressed today via enteric tube. 3. Contrast does traverse distal to the narrowing into the proximal jejunum on the 30 minute imaging. In depth discussion with Patient's sons over the phone yesterday about patient's surgical status. Vitals/I&O/Wt Last Vital Signs Temp 98.6 F 08/31/19 04:00 Pulse 68 08/31/19 04:00 Resp 18 08/31/19 04:00 BP 148/56 08/31/19 04:00 Pulse Ox 93 08/31/19 04:00 08/30/19 08/30/19 08/31/19 14:59 22:59 06:59 Intake Total 898.75 / 898.75 Output Total 400 / 400 1600 / 2000 790 / 2790 Balance 498.75 / 498.75 -1600 / -1101.25 -790 / -1891.25 Weight last 48 hrs Weight 129 lb 1 oz Weight 130 lb 7 oz Physical Exam Narrative: EXAM NARRATIVE: Patient is conscious alert oriented X3 BMI 21.5 Head and neck examination PERRLA no masses no cervical lymphadenopathy no jaundice NG in place with gastric contents no evidence of hematemesis or blood in the tubing or canester Abdomen nontender nondistended soft no organomegaly guarding or rigidity/no signs of peritonitis Data : 08/31/19 05:00 08/31/19 05:00 A&P Assessment and plan (1) Pancreatic mass: Plan Transfer to a higher level of care the sooner the better due to the concern that mass infiltrating the Dodenum would start bleeding,which may require earlier intervention. PPI therapy Cararfate one gram every 8 hours per OS Consider PICC and TPN versus PPN for now to support Nutrition Risk/Benefit to resume Pharmacologic DVT prophylaxis patient is high risk for DVT/PE. Patient can have some sips and chips Thank you for consulting general surgery to participate taking care Ms. Fulton Status: Acute (2) Intractable nausea and vomiting: Continue NG to low intermittent. Flush NG with 50 mL of saline every 8 hour or as needed maintain functionality Antinausea medication Assurance and education All questions have been answered and all concerns have been addressed to patient's satisfaction. Call for questions or concerns Status: Acute Attestations Medical Necessity Statement*: Medical necessity care is expected to cross 2 midnights Time Spent in Patient Care: (>than 50% of time spent in counselling and/or direct pt care on unit). Coding Level of Care Code Acute Water Taxi Boat Mate for Lamar Gonsales Diagnoses Pancreatic mass K86.89 Intractable nausea and vomiting R11.2
[2019-08-31 05:40] LABS: Basophils % 0.3 %; Eosinophils # 0.1 10^3/uL (0.0-0.8); Eosinophils % 0.9 %; Hematocrit 37.5 % (37.0-47.0); Hemoglobin 12.7 g/dL (11.5-15.3); Lymphocytes # 2.1 10^3/uL (0.8-4.8); Lymphocytes % 17.6 %; Mean Corpuscular HGB Conc 33.9 g/dL (30.0-36.0); Mean Corpuscular Hemoglobin 31.8 pg (28.0-34.0); Mean Platelet Volume 10.8 fL (7.4-10.4); Monocytes # 0.8 10^3/uL (0.2-0.9); Monocytes % 6.5 %; Neutrophils # 8.8 10^3/uL (1.8-7.7); Neutrophils % 74.3 %; Nucleated Red Blood Cells % 0 %; Platelet Count 172 10^3/cmm (130-400); Red Blood Count 3.99 10^6/uL (4.1-5.3); Red Cell Distribution Width 12.4 % (12.1-15.1); White Blood Count 11.9 10^3/uL (4.0-10.0)
[2019-08-31 06:00] LABS: Alanine Aminotransferase 10 U/L (0-33); Albumin Level 3.7 g/dL (3.5-5.2); Alkaline Phosphatase 44 IU/L (35-105); Aspartate Amino Transferase 13 U/L (0-32); Blood Urea Nitrogen 14 mg/dL (8-23); Calcium 8.3 mg/dL (8.5-10.5); Carbon Dioxide 24 mmol/L (22-29); Chloride 102 mmol/L (98-107); Globulin 2.1 g/dL (1.3-4.6); Glucose 115 mg/dL (65-115); Osmolality Calculated 295 mOsm/kg (285-295); Sodium 144 mmol/L (136-145); Total Bilirubin 0.4 mg/dL (0.15-1.2); Total Protein 5.8 g/dL (6.6-8.7)
[2019-08-31 06:49] LABS: Glucose Point of Care 111 mg/dL (70-110)
[2019-08-31] MEDS: phenol oral Spray 177 mL 3 SPRAY MUCOUS MEM ×2 (09:11→12:31)
[2019-08-31] MEDS: pantoprazole 40 mg SDV IVP (09:18)
[2019-08-31 11:40] LABS: Glucose Point of Care 121 mg/dL (70-110)
--- NOTE | 2019-08-31 14:38 | PC.NURSE ---
Report called to Mel SANDHU at [facility].
--- NOTE | 2019-08-31 17:25 | PM.TDS ---
Transfer Summary Providers Date of Admission: 08/29/19 07:43 Date of Discharge: 08/31/19 Attending Provider at Admission: Cristina Horowitz DO Attending Provider at Transfer: Mike Houston Primary Care Provider: Parvez Kumar DO Anticipated Date of Transfer: Anticipated date of transfer: 08/31/19 Receiving Facility & Provider: Receiving Provider: [] Receiving facility: [] Diagnoses at Discharge Discharge Diagnosis (1) Pancreatic mass: Status: Acute (2) Intractable nausea and vomiting: Status: Acute Reason for Visit Reason for Visit: Reason For Visit: INTRACTABLE N/V Hospital Course Hospital Course: Pleasant 83-year-old lady with history of diabetes, COPD, very long smoking history of at least 60 years, was readmitted during this hospitalization for recurrence of nausea and vomiting, inability to tolerate food or drink. She was admitted earlier this week, due to persistent symptoms on 08/24, with finding of dehydration, hypercalcemia at that time, although also on calcium supplementation, but also with incidentally noted heterogenous mass in the body of the pancreas, thought to be perhaps either malignancy or acute on chronic pancreatitis (with some calcifications noted in the head of the pancreas). Lipase was not elevated. Her liver parameters remain normal. Biliary ducts appeared normal on CT. She was at that time managed conservatively with IV hydration, with resolution of hypercalcemia, and calcium supplementation was discontinued. PTH was not elevated. At the same time her mass was concerning for possible malignancy. CA 19 9 was assessed and was 715. During hospitalization she felt significantly better, was able to tolerate oral diet, was discharged home with arrangements for follow-up with MRCP. However, her condition worsened again 3 days after returning home, again with recurrence of nausea, vomiting, inability to tolerate food or drink, as well as reporting dark stools. She was reassessed again by CT abdomen pelvis, with similar finding again in the body of the pancreas. Some possible obstruction in third portion of the duodenum. MRCP was attempted, however, reported as poor quality of aging of the pancreas. Gastrografin study was performed (reported as KUB 08/29), reporting partial obstruction/invasion of the ascending portion third-fourth segment of the duodenum at the level of the pancreatic mass, with resulting partial obstruction of contrast with luminal narrowing. Stomach and duodenum decompressed with enteric tube. Contrast does traverse distal to the narrowing into the proximal jejunum on the 30-minute imaging. While in the hospital she has gotten relief with NG suction. Has remained n.p.o., and plans were for initiation of PPN. Given suspicion of pancreatic malignancy as the cause of her symptoms, also with suspected invasion and partial obstruction of duodenum, per surgical assessment recommendation was made for transfer to tertiary facility to assess for resectability or palliative treatment, and she was kindly accepted for additional assessment by hepatobiliary rehabilitation construction specialist Dr. Concepcion in medicine service Dr. Chava thomas at [facility]. Physical Exam Const: COMMON NORMALS: no acute distress and patient oriented x3 GENERAL APPEARANCE: anxious and frail appearing NUTRITIONAL APPEARANCE: thin HENMT: COMMON NORMALS: oropharynx normal NOSE: Foreign body present in naris OTHER: NGT in place to LIS Neck/C-Spine: COMMON NORMALS: no JVD Resp: COMMON NORMALS: normal respiratory effort and clear to auscultation bilaterally AUSCULTATION: clear to auscultation bilaterally Cardio: COMMON NORMALS: no JVD, regular rhythm, S1 normal heart sound present, S2 normal heart sound present and No murmurs present (Cardio) RHYTHM: regular rhythm HEART SOUNDS: S1 normal heart sound present and S2 normal heart sound present GI: COMMON NORMALS: Normal to inspection, nondistended, normoactive bowel sounds present, Soft to palpation and non-tender PALPATION: Yes Soft to palpation Extremity: COMMON NORMALS: no joint enlargement and no pedal edema Neuro: COMMON NORMALS: patient oriented x3 and moves all extremities Skin: COMMON NORMALS: no rashes or lesions noted GENERAL SKIN EXAM: no rashes or lesions noted TS Data Data Completed and Pending: Completed Studies During Hospitalization Category Date Time Status CT abdomen pelvis w con* [id number] Rout ine Cat Scan 08/29/19 08:14 Completed [place] upper GI gastr ografin [id number] Rout ine Exams 08/29/19 15:31 Completed XR KUB [id number] Rout ine Exams 08/30/19 10:00 Completed XR KUB [id number] Rout ine Exams 08/30/19 15:45 Completed XR chest 1V [id number] Stat Exams 08/29/19 15:37 Completed XR chest 1V shayna ble [id number] Routine Exams 08/30/19 14:09 Completed XR chest 1V shayna ble [id number] Stat Exams 08/31/19 01:25 Completed MR MRCP [id number] Rou denia MRI 08/30/19 10:09 Completed CV echo complete* [id number] Routine Ultrasound 08/30/19 14:33 Completed Labs from last 24 hours 08/31/19 08/31/19 08/31/19 11:13 06:35 05:00 WBC RBC Hgb Hct MCV MCH MCHC RDW Plt Count MPV Neut % (Auto) Lymph % (Auto) Loving % (Auto) Eos % (Auto) Baso % (Auto) Neut # (Auto) Lymph # (Auto) Loving # (Auto) Eos # (Auto) Baso # (Auto) Nucleated RBC % (a uto) Nucleated RBCs # Sodium 144 Potassium 4.0 Chloride 102 Carbon Dioxide 24 Anion Gap 22.0 H BUN 14 Creatinine 0.7 Glucose 115 POC Glucose 121 111 Calculated Osmolal ity 295 Calcium 8.3 L Total Bilirubin 0.4 AST 13 ALT 10 Alkaline Phosphata se 44 Total Protein 5.8 L Albumin 3.7 Globulin 2.1 08/31/19 08/30/19 05:00 21:14 WBC 11.9 H RBC 3.99 L Hgb 12.7 Hct 37.5 MCV 94.0 MCH 31.8 MCHC 33.9 RDW 12.4 Plt Count 172 MPV 10.8 H Neut % (Auto) 74.3 Lymph % (Auto) 17.6 Loving % (Auto) 6.5 Eos % (Auto) 0.9 Baso % (Auto) 0.3 Neut # (Auto) 8.8 H Lymph # (Auto) 2.1 Loving # (Auto) 0.8 Eos # (Auto) 0.1 Baso # (Auto) 0.0 Nucleated RBC % (a uto) 0 Nucleated RBCs # 0.0 Sodium Potassium Chloride Carbon Dioxide Anion Gap BUN Creatinine Glucose POC Glucose 128 Calculated Osmolal ity Calcium Total Bilirubin AST ALT Alkaline Phosphata se Total Protein Albumin Globulin Vitals: Last Vital Signs Temp 97.9 F 08/31/19 11:12 Pulse 72 08/31/19 11:12 Resp 18 08/31/19 15:28 BP 157/63 08/31/19 11:12 Pulse Ox 92 08/31/19 11:12 TS Medications Medications Home Medications Mucinex 600 mg PO Q12H PRN 08/25/19 [History Confirmed 08/25/19] Multiple Vitamin, Womens 1 tab PO DAILY 08/25/19 [History Confirmed 08/25/19] Spiriva with HandiHaler 18 mcg INHALATION DAILY 08/25/19 [History Confirmed 08/25/19] Vitamin D3 50 mcg PO DAILY 08/25/19 [History Confirmed 08/25/19] atorvastatin 20 mg PO DAILY 08/25/19 [History Confirmed 08/25/19] famotidine 20 mg PO BID #60 tab 08/26/19 [Rx] nicotine 1 patch TRANSDERMA Q24H #30 each 08/26/19 [Rx] nicotine (polacrilex) 2 mg BUCCAL Q1H PRN #60 each 08/26/19 [Rx] ondansetron HCl [Zofran] 4 mg PO Q8H PRN 5 Days #30 tab 08/26/19 [Rx] Discharge Plan Discharge Patient Disposition: Xfer Short-Term Hosp Condition: Fair Prescriptions: No Action atorvastatin 20 mg tablet 20 mg PO DAILY RF: 0 Spiriva with HandiHaler 18 mcg capsule, w/inhalation device 18 mcg INHALATION DAILY RF: 0 Multiple Vitamin, Womens Tablet 1 tab PO DAILY RF: 0 Vitamin D3 50 mcg (2,000 unit) Capsule 50 mcg PO DAILY RF: 0 Hold Instructions: Resume on 09/09/19. Mucinex 600 mg Tablet Extended Release 12hr 600 mg PO Q12H PRN (Reason: congestion/cough) RF: 0 famotidine 20 mg Tablet 20 mg PO BID Qty: 60 RF: 0 Zofran 4 mg tablet 4 mg PO Q8H PRN (Reason: nausea and vomiting) 5 Days Qty: 30 RF: 1 nicotine 21 mg/24 hr patch 24 hour 1 patch TRANSDERMA Q24H Qty: 30 RF: 0 nicotine (polacrilex) 2 mg lozenge 2 mg BUCCAL Q1H PRN (Reason: nicotine cravings) Qty: 60 RF: 2 Referrals: Parvez Kumar DO [Primary Care Provider] - 4-7 days Patient Instructions: Acute Nausea and Vomiting (ED) Discharge Date/Time: 08/31/19 15:30 Transfer Attestations Time Spent in Transfer Care*: greater than 30 min Quality Metrics Clinical Quality Measures: During this hospital stay, did patient experience: None Coding Level of Care Code Acute Train Brake Operator for Chg Fwd Diagnoses Pancreatic mass K86.89 Intractable nausea and vomiting R11.2
== END 2019-08-31 15:30 | disposition short-term general hospital (02) ==
LOC: ER 08:07 → MEDSURG 08:08
PROVIDERS: Emergency Medicine; Admitting Provider Family Medicine; Emergency Provider Family Medicine; PCP Electrodiagnostic Medicine; Visit Provider Internal Medicine
DX: K86.89 Other specified diseases of pancreas (principal); R11.2 Nausea with vomiting, unspecified; E87.6 Hypokalemia; E86.0 Dehydration; I10 Essential (primary) hypertension; E11.9 Type 2 diabetes mellitus without complications; J44.9 Chronic obstructive pulmonary disease, unspecified; R09.02 Hypoxemia; F17.210 Nicotine dependence, cigarettes, uncomplicated; E78.5 Hyperlipidemia, unspecified
CPT/HCPCS: 12345; 36415; 36416; 71045; 74018; 74177; 74181; 74240; 80053; 81003; 82962; 83690; 85025; 93306; 94640; 96360; 96361; 96372; 96374; 96375; 96376; 99283; 99285; C9113; G0378; J1200; J1650; J1940; J2001; J2270; J2405; J2765; J3480; J7030; Q9963; Q9967

== ENCOUNTER 2019-09-16 10:19 | Outpatient (CLI) | payer MEDICARE, SELFPAY ==
--- NOTE | 2019-09-16 17:58 | ONC CON_ITS ---
Dr. Wiggins New Patient Note Patient: Misa Calzada Unit #: [id number]: 1935 Dicatated By: Liban Wiggins M.D.Date of Visit: Sep 16, 2019 Onc MED New Patient/Consult Referring Physician: Dr. Parvez Kumar M.D. Chief Complaint: Pancreatic cancer. History of Present Illness: This is an 83-year-old woman with newly diagnosed adenocarcinoma of the pancreas. On 08/25/2019 she was admitted to the hospital after presenting to the emergency room with persistent nausea/vomiting. CT abdomen/pelvis reported a heterogeneous area in the body of the pancreas measuring 5 x 2.2 cm. The appearance was consistent with neoplasm, pancreatitis, or pseudocyst. A repeat CT on 08/29/2019 reported an ill-defined low-attenuation enhancing mass in the body of the pancreas measuring 1.7 x 2.4 cm. Air-fluid levels in the stomach and proximal duodenum with transition point in the third portion of the duodenum were felt to be likely due to partial obstruction. A Gastrografin study also was suggestive of partial obstruction/invasion of the a sending portion of the third/fourth segment of the duodenum at the level of the pancreatic mass. With those findings, she was transferred to [facility] for further management. She then underwent upper EUS with fine-needle biopsy of the pancreatic mass on 09/02/2019. The endosonography findings included a malignant appearing mass in the pancreatic body measuring 37 x 25 mm. The mass was noted to encase the splenic artery and at least abut the hepatic artery and superior mesenteric artery. The upstream pancreatic duct was dilated to 3 mm. There was no abnormality noted in the left lobe of the liver or the common bile duct. A few abnormal lymph nodes were visualized in the gastrohepatic ligament and peripancreatic region, with the largest peripancreatic node measuring 11 x 9 mm and the largest gastrohepatic lymph node measuring 11 x 7 mm. Cytology on the EUS was suspicious but not diagnostic. On 09/03/2019 she underwent repeat upper EUS and fine-needle biopsy of the pancreatic mass. 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 Pathology on the 09/03/2019 biopsy did show adenocarcinoma infiltrating fibrosis. The morphology was consistent with pancreaticobiliary primary. Her baseline CA-19-9 was 750 U/mL. She was discharged home on 09/06/2019. She is seen now for further management. Since undergoing placement of the duodenal stent, she has not had any further vomiting. She continues, though, to have significant abdominal discomfort and early satiety. She is trying to ingest small meals frequently, mostly liquid. She has difficulty tolerating Boost. She has had a weight loss in the range of 12 to 15 pounds, but that has been occurring gradually over the past 1 to 2 years. She complains that she has no energy. Her activity is very limited. ECOG score is 2. She has no fever or night sweats. She has chronic cough associated with underlying COPD, and she sometimes does cough up yellow gunk. She has some shortness of breath with activity, but she says her breathing is pretty good. She does not complain of chest pain. Her bowels have been pretty good since she has been home from the hospital. She has frequent urination. She has some arthritis, particularly in her hands, but she does not have pain with it. She does not complain of headache. She has been having some orthostatic lightheadedness. She has numbness/tingling in her hands and feet, but it is intermittent. Past Medical History: Her medical history includes chronic obstructive pulmonary disease, hyperlipidemia, hypertension, and type II diabetes. Past Surgical History: She underwent Upper EUS with fine needle biopsy of pancreatic body mass on 2019, and she underwent Upper EUS with FNB and with placement of duodenal stent on 09/03/2019. Her other surgical/procedural history consists of bilateral cataract excisions, hysterectomy/bilateral salpingectomy-oophorectomy, left hammer toe repair, left shoulder arthroscopy, and tonsillectomy. Medications: Atorvastatin Calcium 1 Tablet (of 20 mg) Oral daily, Famotidine 1 Tablet (of 20 mg) Oral b.i.d., Ondansetron HCl 1 Tablet (of 4 mg) Oral q 8 hours PRN, Probiotic 1 Capsule Oral daily, Spiriva HandiHaler 1 Capsule (of 18 mcg) Inhalation daily, Vitamin D-3 1 Tablet (of 125 mcg ) Oral daily Allergies: Advair Diskus Social History: Ms. Calzada is and she is retired. She has a history of smoking for 67 years, previously 1 pack of cigarettes daily. Within the past couple of years she has cut down to 1/2 pack/day. She does not drink alcohol. Family History: Father of colon cancer at age 36, and 2 paternal uncles also of colon cancer. Mother of heart attack at age 59. One brother has had a mild stroke but is otherwise in good health. Review Of Symptoms: Constitutional - She feels very poor overall. Her energy level is very low. She has very limited activity. Her appetite is very poor. She is drinking Boost daily. She reports weight loss over the past two years. Her normal weight is 135. No fever, night sweats, or hot flashes. ECOG score is 2, Eyes - She's had bilateral cataract surgery, ENMT - No hearing loss or tinnitus. No sinus congestion/drainage. No mouth sores. She has sore throat. No difficulty swallowing, Hematologic/Lymphatic - She has some bruising, Respiratory - She has shortness of breath. She uses Spiriva daily and has a rescue inhaler to use as needed. She has a cough productive of yellow phelgm. No pleuritic pain or hemoptysis, Cardiovascular - No angina pain. No palpitations, Gastrointestinal - Her nausea is better, but she is having abdominal discomfort and early satiety. No diarrhea or constipation. No blood in the stool or black stools, Genitourinary (F) - No dysuria or hematuria. She has urinary frequency. No urgency or incontinence, Musculoskeletal - She says she is sore half the time. She reports having pain in the bones in her arms and legs, Integumentary - No skin complications, Neurologic - No headache or dizziness. She has numbness in her legs. No other focal neurologic symptoms, Psychiatric - No anxiety. She says she is not depressed. She has chronic insomina. Vital Signs: Performed on Sep 16, 2019 10:51: 0, 19.70, 1.58 sq.m, 65.00 in, 95 % (LOW), 69 /min, 18 /min, 130/56 mm(hg), 98.2 F (LOW), and 118.4 lbs (HIGH). Physical Examination: Constitutional - She appears generally weak, Eyes - Sclerae nonicteric. Conjunctivae clear, ENMT - No lesions noted in the oral cavity, Neck - No mass or thyromegaly, Hematologic/Lymphatic - No cervical, clavicular, or axillary adenopathy, Respiratory - Lungs are clear with diminished air movement bilaterally, Cardiovascular - Heart rhythm is regular. There is a II/ systolic murmur. There is no gallop or rub noted, Abdomen - Soft and non-tender. Liver and spleen are not enlarged. There is no abdominal mass or ascites noted and there is no inguinal adenopathy, Back/Spine - No spine or CVA tenderness noted, Extremities - No edema. Dorsalis pedis pulses are palpable bilaterally, Integumentary - No rashes. No suspicious skin lesions noted, Neurologic - No focal neurologic deficits noted. Impression: 1. Patient with adenocarcinoma involving the body of the pancreas. By clinical evaluation her disease appears to be stage IIB (T2, N1, M0), but she was deemed inoperable due to ultrasound evidence of encasement of the splenic artery. 2. She had associated obstruction of the third portion of the duodenum for which she has undergone placement of duodenal stent. 3. She has a strong family history of colon cancer, and Vigil syndrome also needs to be excluded. Her other medical illnesses include: 4. Hypertension. 5. Hyperlipidemia. 6. Type 2 diabetes. 7. COPD. Plan: I reviewed the CT and EUS findings and we discussed the pathology results and clinical implications. She has what appears to be localized but unresectable adenocarcinoma involving the body of the pancreas. She has associated duodenal obstruction, for which she has undergone placement of a duodenal stent. She is still having significant upper GI symptoms, though she is tolerating a liquid diet in small amounts. I reviewed some potential treatment options, one of which would be a trial of chemotherapy, either as a neoadjuvant regimen or as a palliative regimen. The most likely choice for this would be the gemcitabine/Abraxane regimen, as she clearly would not be a suitable candidate for FOLFIRINOX. We discussed the fact that this would be a weekly regimen, that would potentially have significant toxicities, and that the response rate is relatively low, in the range of 25 to 30%. As a neoadjuvant therapy, my concern is the fact that at her age and with underlying COPD, she may still not be an appropriate candidate for a Whipple procedure even if her disease was deemed to be resectable. A second option would be chemoradiation, which would strictly be palliative. It would potentially be associated with nausea and other GI side effects, but with symptomatic localized disease, it may offer her the best option for improved quality of life. The third option would be to continue with symptomatic/supportive care measures, which also would not be unreasonable. At least initially, I will plan to discuss this with Dr. Currie will be covering for radiation here next week and she is interested in pursuing treatment, I will arrange for consultation with him. In the meantime, I will have her try adding metoclopramide 5 mg 4 times daily. In addition, I will be checking with the pathology department at [facility] to determine if there is tissue available for MSI testing and/or next generation sequencing. Signed By: Liban Wiggins M.D. <<Signature on File>>
== END 2019-09-16 10:20 | disposition home or self-care (01) ==
LOC: ONCMED 10:25
PROVIDERS: PCP Electrodiagnostic Medicine; Visit Provider Internal Medicine Medical Oncology
DX: C25.1 Malignant neoplasm of body of pancreas (principal); I10 Essential (primary) hypertension; E78.5 Hyperlipidemia, unspecified; E11.9 Type 2 diabetes mellitus without complications; J44.9 Chronic obstructive pulmonary disease, unspecified; F17.210 Nicotine dependence, cigarettes, uncomplicated; Z96.89 Presence of other specified functional implants
CPT/HCPCS: 99205

== ENCOUNTER 2019-09-25 14:32 | Outpatient (CLI) | payer MEDICARE, SELFPAY ==
--- NOTE | 2019-09-25 17:44 | N.ONRAD NP_ITS ---
Radiation Oncology New Patient Visit Patient: Misa Calzada MR#: [id number] : 1935> Age: 83> Sex: Female> Dictated by: Dr. Arian Currie Date of Service: 09/25/2019 Referring Physician(s) : Dr. Parvez Kumar Diagnosis: C25.1 - malignant neoplasm of body of pancreas, Diagnosed 09/16/2019 (active), stage iib, t2, n1, m0. Radiotherapy to date: Summary > No prior radiation therapy. Chief Complaint / History of Present Illness: Ms Fulton was hospitalized in [place] 08/25/2019 after presenting to the emergency room with nausea and vomiting. A CT of the abdomen showed a mass in the body of the pancreas measuring about 5 x 2.[address] scan confirmed the presence of a mass, though dimensions were described as smaller. Further work-up revealed evidence of obstruction in the third portion of the duodenum secondary to the mass. She was transferred to [facility] in [place] for further evaluation and management. She underwent 2 endoscopies. The first biopsy of the pancreatic mass was negative but malignancy consistent with pancreatic cancer was confirmed at the time of the second endoscopy. Ultrasound performed during the procedure indicated encasement of the splenic artery and possible involvement of both the hepatic and superior mesenteric artery. She was deemed to have unresectable disease. A stent was placed in the duodenum. The placement of the stent did seem to relieve her nausea and vomiting. She continued to have other troublesome symptoms such as discomfort in the abdomen and back, fatigue, and a very poor appetite. She was discharged and has returned to [place] for consideration of treatment. At this time she continues to have poor appetite, fatigue, abdominal/back discomfort, and weight loss. She saw Dr. Wiggins last week. We discussed her case by telephone. Neither of us feel that she is a candidate for aggressive treatment. She is seen to discuss palliative radiation given with concomitant chemotherapy. Current Medications: Atorvastatin Calcium, famotidine, metoclopramide HCl, ondansetron HCl, probiotic, spiriva HandiHaler, vitamin D-3. Allergies: Advair Diskus. Medical History: - Chronic obstructive pulmonary disease, - hyperlipidemia, - hypertension, - type II diabetes. No history of collagen vascular disease. No previous radiation therapy. Surgical History: Bilateral cataract excisions, hysterectomy/bilateral salpingectomy-oophorectomy, left hammer toe repair, left shoulder arthroscopy, tonsillectomy, upper EUS with fine needle biopsy of pancreatic body mass on 09/02/2019 and upper EUS with FNB and with placement of duodenal stent on 09/03/2019. Family History: Father is at age 36 having experienced colon cancer. Mother is at age 59 having experienced myocardial infarction. Paternal Uncle is having experienced colon cancer. Paternal Uncle is having experienced colon cancer. Father of colon cancer at age 36, and 2 paternal uncles also of colon cancer. Mother of heart attack at age 59. One brother has had a mild stroke but is otherwise in good health. Social History: Last screened on 08/06/2019 - Current every day smoker 0.5 packs/day for 67 years (33.5 pack years). Last screened on 08/06/2019 - Never drank. Patient indicated use of the following products: cigarettes. Patient indicated access to the following support systems: lives alone, lives in an assisted living environment, supportive family/friends willing to assist with needs, and adequate transportation available for expected visits. Patient indicated the following nutritional habits: regular meals. Patient indicated participation in the following forms of activity: regular exercise. Current Complaints / Review of Systems: Constitutional - Complains of a poor appetite. Complains of severe fatigue. Complains of change in weight in [facility] weight is down 2.4 lbs. since last seen on 09/16/19. She has been gradually losing weight the past couple of years. Denies fever and night sweats. Eyes - Denies blurred vision and double vision. ENMT - Complains of mouth dryness and altered taste. Denies dysphagia, ear pain, stomatitis and tinnitus. Neck - Denies neck pain. Integumentary - Complains of rash related to esz. Breasts - Denies pain. Cardiovascular - Complains of chest pain in the bilateral subscapular chest wall which happens when laying down at night. Denies arrhythmias and edema. Respiratory - Complains of a mild cough. Complains of dyspnea associated with normal activity. Denies wheezing. Gastrointestinal - Complains of mild abdominal pain that is persistent located in the upper abdomen. Complains of intermittent constipation. Complains of nausea occasionally. Denies diarrhea, heartburn / dyspepsia, melena / GI bleeding and vomiting. Genitourinary (F) - Complains of frequency and nocturia occasionally. Denies dysuria and urgency. Musculoskeletal - Complains of joint pain in the middle of the back. Denies bone pain and muscle weakness. Neurologic - Complains of intermittent dizziness that occurs upon sitting to standing. Denies abnormal gait and headaches. Endocrine - Complains of Type 2 diabetes. Denies thyroid disease. Hematologic/Lymphatic - Denies tender or enlarged lymph nodes.. Vital Signs: Performed on 09/25/2019 2:56 PM BMI - 19.304 kg/m2, Height - 65.00 in, Weight - 116.0 lbs, Temperature - 98.5 f, Pulse - 70, Respiration - 20, O2 Sat - 95 % (low), Pain - 3 and BP - 145/ 69 mm(hg)(high/). Physical Exam: Alert, oriented, and in no acute distress. She appears chronically ill and somewhat pale. She has no cervical or supraclavicular lymphadenopathy. Lungs are clear to percussion. On auscultation no rales rhonchi or wheezes. Heart rhythm is regular. No murmur, gallop, or rub. Abdomen no distention. No organomegaly or mass or tenderness. Musculoskeletal exam reveals a normal but slow gait. She is steady on her feet and got on the exam table without assistance. No bone tenderness. Performance Status: KPS: 60 Pathology: Primary, c25.1 - malignant neoplasm of body of pancreas, Diagnosed 09/16/2019 (active) stage iib, t2, n1, m0. Lab: Imaging: See HPI Impression: I discussed with Ms Fulton and her son that she has an incurable malignancy. We discussed that treatment is palliative. I told her that it probably, if successful, will give her a few months of benefit where her sense of wellbeing and activity level will be improved. I discussed that her disease will eventually progress and the symptoms that she is a experiencing now will likely recur. At that time, hospice would certainly be appropriate. She is very familiar with hospice and says that she has worked with them before. Her late was a patient of hospice. I discussed palliative concomitant radiation and chemotherapy. I discussed the typical course of treatment delivered 5 days/week for 5 weeks. The proximity of the tumor to the duodenum probably precludes a longer course of treatment. The patient lives alone and questions coming in for treatment by herself. I told her that she probably could on days where she just receives radiation. She will need to check with Dr. Wiggins about days of chemotherapy. A social issue for her is that 2 of her sons live in states where they would require 14 days of quarantine if they come to [place]. One lives in [place] and the other in [place]. I discussed that treatment may temporarily make some of the symptoms that she is now experiencing worse. I explained that she could temporarily have increased fatigue, decreased appetite, and nausea. She asked if she has to finish a course of palliative radiation if she starts it. I told her that she does not. I told her if she reaches a point where she does not think she can proceed that we could either stop treatment altogether or give her a break. At this time Ms Fulton has not decided whether she wishes to proceed with treatment. She is going to talk the situation over with her family and try to make a decision by next week. I told her there is certainly no mary to make a decision. Also discussed that if she does not desire treatment that it would be appropriate to go ahead and refer her to hospice at this time. Plan: See above. Signed by: 09/25/2019 5:42:51 PM <<Signature on File>> Time spent with patient: CPT Code: CPT Code:
== END 2019-09-25 14:33 | disposition home or self-care (01) ==
LOC: ONCMED 14:35
PROVIDERS: PCP Electrodiagnostic Medicine; Visit Provider Specialist
DX: C25.1 Malignant neoplasm of body of pancreas (principal); F17.210 Nicotine dependence, cigarettes, uncomplicated
CPT/HCPCS: 99204

== ENCOUNTER 2019-10-02 06:51 | Outpatient (RCR) | payer MEDICARE, SELFPAY ==
--- NOTE | 2019-10-02 | CT_ITS ---
Radiation Therapy Planning CT images; total exam DLP: 247.97 mGy-cm MTDD
== END 2019-10-07 23:59 | disposition home or self-care (01) ==
LOC: ONCMED 06:51
PROVIDERS: PCP Electrodiagnostic Medicine; Visit Provider Specialist
DX: Z51.0 Encounter for antineoplastic radiation therapy (principal); C25.1 Malignant neoplasm of body of pancreas; J44.9 Chronic obstructive pulmonary disease, unspecified; E78.5 Hyperlipidemia, unspecified; I10 Essential (primary) hypertension; E11.9 Type 2 diabetes mellitus without complications
CPT/HCPCS: 77300; 77301; 77334; 77338

== ENCOUNTER 2019-11-07 06:50 | Outpatient (RCR) | payer MEDICARE, SELFPAY ==
[2019-10-14 14:34] LABS: Basophils % 0.4 %; Eosinophils # 0.3 10^3/uL (0.0-0.8); Eosinophils % 2.4 %; Hematocrit 40.5 % (37.0-47.0); Hemoglobin 12.9 g/dL (11.5-15.3); Lymphocytes # 2.3 10^3/uL (0.8-4.8); Lymphocytes % 21.4 %; Mean Corpuscular HGB Conc 31.9 g/dL (30.0-36.0); Mean Corpuscular Hemoglobin 31.2 pg (28.0-34.0); Mean Corpuscular Volume 98.1 fL (81-99); Mean Platelet Volume 10.7 fL (7.4-10.4); Monocytes # 0.6 10^3/uL (0.2-0.9); Monocytes % 5.9 %; Neutrophils # 7.3 10^3/uL (1.8-7.7); Neutrophils % 69.6 %; Nucleated Red Blood Cells % 0 %; Platelet Count 191 10^3/cmm (130-400); Red Blood Count 4.13 10^6/uL (4.1-5.3); Red Cell Distribution Width 12.3 % (12.1-15.1); White Blood Count 10.5 10^3/uL (4.0-10.0)
[2019-10-14 15:12] LABS: Alanine Aminotransferase 10 U/L (0-33); Albumin Level 4.1 g/dL (3.5-5.2); Alkaline Phosphatase 63 IU/L (35-105); Anion Gap 15.1 (5-19); Blood Urea Nitrogen 14 mg/dL (8-23); Carbon Dioxide 28 mmol/L (22-29); Chloride 99 mmol/L (98-107); Globulin 2.9 g/dL (1.3-4.6); Glucose 147 mg/dL (65-115); Osmolality Calculated 285 mOsm/kg (285-295); Potassium 4.1 mmol/L (3.5-5.1); Sodium 138 mmol/L (136-145); Total Bilirubin 0.3 mg/dL (0.15-1.2)
[2019-10-14 15:32] LABS: Cancer Antigen 19 9 1010 U/mL (0-35)
[2019-10-14 16:20] LABS: Aspartate Amino Transferase 16 U/L (0-32)
--- NOTE | 2019-10-14 19:43 | ONCRAD TMN_ITS ---
Radiation Oncology Weekly Treatment Management Patient: Misa Calzada MR#: [id number] : 1935 Age: 83 Sex: Female Dictated by: Dr. Tacho Worthy Date of Service: 10/14/2019 Referring Physician(s) : Dr. Parvez Kumar Diagnosis: C25.1 - Malignant neoplasm of body of pancreas, Diagnosed 09/16/2019 (Active) Stage IIB, T2, N1, M0 Radiotherapy to date: Course: Pancreas 2019, Treatment Site: Pancreas 25FX, Ref. ID: [id number], Energy: 15X/6X, Dose/Fx (cGy): 180, #Fx: , Dose Correction (cGy): 0, Total, Dose (cGy): 360, Start Date: 10/13/2019, Elapsed Days: 1 Chief Complaint/History of Present Illness: Pancreatic cancer. The patient reports a persistent poor appetite, mild fatigue, and she had one episode of nausea this morning with abdominal pain. After her bowel movement, she felt better. She has persistent right lower flank/back pain. She is tolerating Xeloda well, and she reports no oral pain or mouth sores. Current Medications: Atorvastatin Calcium, dilaudid, docusate Calcium, famotidine, famotidine, hYDROmorphone HCl, metoclopramide HCl, metoclopramide HCl, ondansetron, ondansetron HCl, probiotic, spiriva HandiHaler, vitamin D-3, xeloda, xeloda. Allergies: Advair Diskus. Current Complaints/Review of Systems: Constitutional - Complains of a poor appetite. Complains of mild fatigue. Denies fever, night sweats and change in weight. Gastrointestinal - Complains of intermittent constipation. Complains of nausea. Complains of satiety. Denies abdominal pain, diarrhea, heartburn / dyspepsia and vomiting. Musculoskeletal - Complains of joint pain in the right lower flank / back. Vital Signs: Performed on 10/14/2019 1:55 PM BMI - 18.771 kg/m2, Height - 65.00 in, Weight - 112.8 lbs, Temperature - 98.4 f, Pulse - 62, Respiration - 18, O2 Sat - 97 %, Pain - 4 and BP - 153/ 65 mm(hg)(high/). Physical Exam: Appears stable, no skin erythema or desquamation. There is no evidence of oral mucositis. Performance Status: 3 - Capable of only limited self-care, confined to bed or chair more than 50% of waking hours. (ECOG) Lab: None pending in Radiation Oncology. Imaging: No new diagnostic imaging was performed since the last weekly treatment visit. All radiation therapy related imaging (including but not limited to kV, MV, and CBCT generated images) was reviewed. Appropriate changes, if any, were made to assure accurate target localization. Impression/Plan: Tolerating treatment well with expected side effects. Continue treatment as planned. CPT: 42334 Signed by: Dr. Tacho Worthy>10/14/2019 7:41:17 PM <<Signature on File>>
--- NOTE | 2019-10-15 23:03 | ONC FU_ITS ---
[facility] Patient Note Patient: Misa Calzada Unit #: [id number]: [id number] Dictated By: Zandra KelleyDate of Visit: Oct 13, 2019 Onc MED Follow-Up/Prog Note Chief Complaint: Pancreatic cancer. History of Present Illness: This is an 83-year-old woman with newly diagnosed adenocarcinoma of the pancreas. On 08/25/2019 she was admitted to the hospital after presenting to the emergency room with persistent nausea/vomiting. CT abdomen/pelvis reported a heterogeneous area in the body of the pancreas measuring 5 x 2.2 cm. The appearance was consistent with neoplasm, pancreatitis, or pseudocyst. A repeat CT on 08/29/2019 reported an ill-defined low-attenuation enhancing mass in the body of the pancreas measuring 1.7 x 2.4 cm. Air-fluid levels in the stomach and proximal duodenum with transition point in the third portion of the duodenum were felt to be likely due to partial obstruction. A Gastrografin study also was suggestive of partial obstruction/invasion of the a sending portion of the third/fourth segment of the duodenum at the level of the pancreatic mass. With those findings, she was transferred to [facility] for further management. She then underwent upper EUS with fine-needle biopsy of the pancreatic mass on 09/02/2019. The endosonography findings included a malignant appearing mass in the pancreatic body measuring 37 x 25 mm. The mass was noted to encase the splenic artery and at least abut the hepatic artery and superior mesenteric artery. The upstream pancreatic duct was dilated to 3 mm. There was no abnormality noted in the left lobe of the liver or the common bile duct. A few abnormal lymph nodes were visualized in the gastrohepatic ligament and peripancreatic region, with the largest peripancreatic node measuring 11 x 9 mm and the largest gastrohepatic lymph node measuring 11 x 7 mm. Cytology on the EUS was suspicious but not diagnostic. On 09/03/2019 she underwent repeat upper EUS and fine-needle biopsy of the pancreatic mass. 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 Pathology on the 09/03/2019 biopsy did show adenocarcinoma infiltrating fibrosis. The morphology was consistent with pancreaticobiliary primary. Her baseline CA-19-9 was 750 U/mL. She was discharged home on 09/06/2019. Mrs. Fulton has elected to pursue palliative chemoradiation. She is here today to begin her first treatment with radiation and for Xeloda education. She continues to feel some nausea overall. It is some better with the Reglan and Zofran as well as Pepcid. She still has some breakthrough. She still is having some intermittent pain but states that she takes her pain medicine that that does help although it does tend to make her little queasy at times. She has no new concerns today. Her appetite is marginal she states that she is eating. She states she is doing water fairly well for her. She denies any diarrhea or constipation. Her ECOG is 2. Past Medical History: Chronic obstructive pulmonary disease Hyperlipidemia Hypertension Type II diabetes Past Surgical History: Bilateral cataract excisions Hysterectomy/bilateral salpingectomy-oophorectomy Left hammer toe repair Left shoulder arthroscopy Tonsillectomy Upper EUS with FNB and with placement of duodenal stent in 2019 Upper EUS with fine needle biopsy of pancreatic body mass in 2019 Colonoscopy in 2013 Allergies: Advair Diskus Medications: Atorvastatin Calcium 1 Tablet (of 20 mg) Oral daily Docusate Calcium 1 - 2 Capsule (of 240 mg) Oral daily PRN Famotidine 1 Tablet (of 20 mg) Oral b.i.d. HYDROmorphone HCl 1 - 2 Tablet (of 2 mg) Oral four times a day PRN Metoclopramide HCl 1 Tablet (of 5 mg) Oral t.i.d. Ondansetron HCl 1 Tablet (of 4 mg) Oral q 8 hours PRN Probiotic 1 Capsule Oral daily Spiriva HandiHaler 1 Capsule (of 18 mcg) Inhalation daily Vitamin D-3 1 Tablet (of 125 mcg ) Oral daily Xeloda 2 Tablet (of 500 mg) Oral b.i.d. Xeloda 1 Tablet (of 150 mg) Oral b.i.d. Family History: Ms. Calzada's mother at age 59: myocardial infarction. Ms. Calzada's father at age 36: colon cancer. Ms. Calzada has 2 paternal uncles: 2 . Ms. Calzada's first paternal uncle's colon cancer. Another paternal uncle's colon cancer. Father of colon cancer at age 36, and 2 paternal uncles also of colon cancer. Mother of heart attack at age 59. One brother has had a mild stroke but is otherwise in good health. Social History: Ms. Calzada is and she is retired. She is a daily smoker who has smoked 0.5 packs/day for 67 years. She has no history of drinking. She has indicated exposure to the following products: cigarettes. Ms. Calzada reports the following support systems: lives alone, lives in an assisted living environment, supportive family/friends willing to assist with needs, and adequate transportation available for expected visits. Her diet consists of regular meals. She indicates her activity level as: regular exercise. Review Of Symptoms: Constitutional Denies fevers, chills, night sweats, excessive fatigue or weight loss. Allergic/Immunologic No reactions. Eyes Denies significant visual changes. No diplopia. No amaurosis. ENMT Denies changes in hearing, sore throat, mouth sores, difficulty or changes in swallowing ability, and/or sinus drainage. Hematologic/Lymphatic Denies easy bruising or bleeding. The patient denies any tender or palpable lymph nodes. Respiratory Denies dyspnea on exertion, chest pain, cough or hemoptysis. Denies orthopnea. Cardiovascular Denies anginal chest pain, palpitations or orthopnea. Gastrointestinal Denies nausea, vomiting, diarrhea, GI bleeding, or constipation. Denies change in bowel habits and/or stool color, no heartburn or early satiety. Genitourinary (F) No hematuria, hesitancy, incontinence, vaginal bleeding, discharge or other problems with urination. Musculoskeletal Denies joint pain, swelling or redness. No decreased range of motion. Integumentary Denies chronic rashes, inflammation, ulcerations or skin changes. Neurologic Denies headache, blurred vision, and no areas of focal weakness or numbness. Normal gait. No sensory problems. Psychiatric Denies insomnia, depression, kyra or mood swings. Vital Signs: Performed on Oct 13, 2019 14:18 Height - 65.00 in Weight - 112.8 lbs (LOW) BSA - 1.55 sq.m BMI - 18.77 Temperature - 97.5 F (LOW) Pulse - 72 /min Respiration - 19 /min BP - 178/76 mm(hg) (HIGH) O2 Sat - 96 % Pain - 8,1 - No physically strenuous activity, but ambulatory and able to carry out light or sedentary work (e.g. office work, light house work). (ECOG) Physical Examination: Constitutional Alert, oriented, no acute distress. Skin pink, warm and dry. Head Normocephalic; atraumatic. Eyes Conjunctivae and sclerae are clear and without icterus. Pupils are reactive and equal. Neck Supple without masses or thyromegaly. No jugular venous distension. Hematologic/Lymphatic No petechiae or purpura. No tender or palpable lymph nodes in the cervical or supraclavicular areas. Respiratory Lungs are clear to auscultation without rhonchi or wheezing. Cardiovascular Regular rate and rhythm of heart without murmurs,clicks, gallops or rubs. Back/Spine Non-tender to palpation. Extremities No visible deformities, no cyanosis, clubbing or edema. Musculoskeletal No tenderness or swelling, normal range of motion without obvious weakness. Integumentary No rashes or lesions. Neurologic No sensory or motor deficits, normal cerebellar function, normal gait. Psychiatric Alert and oriented times three. Coherent speech. Verbalizes understanding of our discussions today. Laboratory: Impression: 1. Patient with adenocarcinoma involving the body of the pancreas. By clinical evaluation her disease appears to be stage IIB (T2, N1, M0), but she was deemed inoperable due to ultrasound evidence of encasement of the splenic artery. 2. She had associated obstruction of the third portion of the duodenum for which she has undergone placement of duodenal stent. Her other medical illnesses include: 3. Hypertension. 4. Hyperlipidemia. 5. Type [address] Wiggins reviewed the CT, EUS findings and discussed the pathology results and clinical implications with Elsi. She has what appears to be localized but unresectable adenocarcinoma involving the body of the pancreas. She has associated duodenal obstruction, for which she has undergone placement of a duodenal stent. She was still having significant upper GI symptoms, though she is tolerating a liquid diet in small amounts. Dr Wiggins reviewed some potential treatment options, one of which would be a trial of chemotherapy, either as a neoadjuvant regimen or as a palliative regimen. The most likely choice for this would be the gemcitabine/Abraxane regimen, as she clearly would not be a suitable candidate for FOLFIRINOX. We discussed the fact that this would be a weekly regimen, that would potentially have significant toxicities, and that the response rate is relatively low, in the range of 25 to 30%. As a neoadjuvant therapy, my concern is the fact that at her age and with underlying COPD, she may still not be an appropriate candidate for a Whipple procedure even if her disease was deemed to be resectable. A second option would be chemoradiation, which would strictly be palliative. It would potentially be associated with nausea and other GI side effects, but with symptomatic localized disease, it may offer her the best option for improved quality of life. The third option would be to continue with symptomatic/supportive care measures, which also would not be unreasonable. Mrs. Calzada did have [employer] sequencing through [employer]. There were no actionable mutations noted. Her MSI was stable; mismatch repair was proficient; in TRK 1, 2 and 3 fusion not detected. Tumor mutational burden intermediate at 11; STANISLAV mutation undetected; BRCA1 BRCA2 mutations not detected. K-rosalba: pathogenic variant exon 2 p.G12D; TP53 pathogenic variant exon 8 p.R2/3H. MLH1: positive 40%, MSH2 positive 100%, MSH6 positive 60%. PDL 1 negative 2+, 1%. Mrs. Calzada has elected to proceed with palliative chemoradiation. Her chemo portion will consist of capecitabine orally. Plan: 1. Proceed with Xeloda (capecitabine). Her dose is 1150 mg twice daily on the days of radiation only. (Two 500 mg tablets and one 150 mg tablet). 2. She is currently on Reglan and Zofran for nausea and thinks that this is working okay for now. 3. I have asked that she have baseline CBC CMP CA-19-9- she can do that today or tomorrow. 4. I have asked for weekly CBC CMP and office visits to monitor her performance status and compliance with the Xeloda. 5. She has been given written information regarding her treatment plan. 6. SHE HAS BEEN ADVISED TO AVOID GRAPEFRUIT PRODUCTS WITH THE XELODA. 7. The patient was informed of chemotherapy plan and specific drugs were discussed. We also discussed how chemotherapy works and identified common side effects including alopecia; myelosuppression-including neutropenia, anemia, thrombocytopenia; peripheral neuropathy; fatigue; nausea; diarrhea; constipation; bleeding or bruising; skin changes-rash/dryness; mouth sores; drug hypersensitivity/allergic reactions or anaphylaxis and increased risk of blood clots. They have also been informed how to contact the clinic with side effects or symptoms, including but not limited to fever greater than 100.4???, chills, sore throat, bleeding or bruising that is not explained or mouth sores, cough, nasal discharge, diarrhea, constipation, nausea and/or vomiting not relieved with medications on hand at home, as well as any other concern or question they may have. Our hours are 8:00 a.m. to 4:30 p.m. on Sunday through and 8-12:00 on Sunday. However, someone is butcher scullion 24 hours per day and they have been advised to contact the [facility] at if it is after hours. We have also discussed potential long-term side effects of chemotherapy including secondary cancers, infertility, pulmonary complications, cardiac complications, and again peripheral neuropathy. We have discussed that they certainly need to let us know before taking any antioxidants or herbal or further dietary supplements, as we are unsure of how these agents react with chemotherapy and we request that they avoid these products for now. They were informed that it is okay to take multivitamins at normal doses. They verbally state that they understand to take all medications as directed by their healthcare provider unless otherwise indicated. Instructions for oral care with baking soda and salt water rinses as well as a guide for use of [id number] medication were provided with the treatment plan. They have been given a written patient treatment plan, of which a copy is in the chart, as well as specific drug information. They have no questions and verbalized understanding and are willing to proceed with chemotherapy at this time. The majority of this visit was spent in face to face communication with this patient and/or his/her family in regards to plan of care, side effect identification and management. Signed By: Zandra Kelley-TROY, AOSIMONA Wiggins MD <<Signature on File>>
[2019-10-16] MEDS: sodium chloride 0.9% 1,000 ML 999 ML IV (08:10)
[2019-10-16 09:14] LABS: Basophils % 0.5 %; Eosinophils # 0.1 10^3/uL (0.0-0.8); Eosinophils % 0.9 %; Hematocrit 38.7 % (37.0-47.0); Hemoglobin 12.2 g/dL (11.5-15.3); Lymphocytes # 1.1 10^3/uL (0.8-4.8); Lymphocytes % 13.4 %; Mean Corpuscular HGB Conc 31.5 g/dL (30.0-36.0); Mean Corpuscular Hemoglobin 30.5 pg (28.0-34.0); Mean Corpuscular Volume 96.8 fL (81-99); Mean Platelet Volume 10.6 fL (7.4-10.4); Monocytes # 0.4 10^3/uL (0.2-0.9); Monocytes % 5.2 %; Neutrophils # 6.23 10^3/uL (1.8-7.7); Neutrophils % 79.7 %; Nucleated Red Blood Cells % 0 %; Platelet Count 183 10^3/cmm (130-400); Red Cell Distribution Width 12.1 % (12.1-15.1); White Blood Count 7.8 10^3/uL (4.0-10.0)
[2019-10-16 09:17] LABS: Alanine Aminotransferase 8 U/L (0-33); Albumin Level 3.8 g/dL (3.5-5.2); Alkaline Phosphatase 57 IU/L (35-105); Anion Gap 15.8 (5-19); Aspartate Amino Transferase 12 U/L (0-32); Blood Urea Nitrogen 8 mg/dL (8-23); Calcium 9.7 mg/dL (8.5-10.5); Carbon Dioxide 25 mmol/L (22-29); Chloride 102 mmol/L (98-107); Globulin 2.2 g/dL (1.3-4.6); Glucose 136 mg/dL (65-115); Osmolality Calculated 286 mOsm/kg (285-295); Potassium 3.8 mmol/L (3.5-5.1); Sodium 139 mmol/L (136-145); Total Bilirubin 0.5 mg/dL (0.15-1.2)
--- NOTE | 2019-10-16 18:38 | ONC FU_ITS ---
Dr. Wiggins Patient Follow-Up Note Patient: Misa Calzada Unit #: [id number]: [id number] Dicatated By: Liban Wiggins M.D.Date of Visit:Oct 16, 2019 Onc Med Follow-up/Prog Note Chief Complaint: Pancreatic cancer. 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 On 08/25/2019 she was admitted to the hospital after presenting to the emergency room with persistent nausea/vomiting. CT abdomen/pelvis reported a heterogeneous area in the body of the pancreas measuring 5 x 2.2 cm. The appearance was consistent with neoplasm, pancreatitis, or pseudocyst. A repeat CT on 08/29/2019 reported an ill-defined low-attenuation enhancing mass in the body of the pancreas measuring 1.7 x 2.4 cm. Air-fluid levels in the stomach and proximal duodenum with transition point in the third portion of the duodenum were felt to be likely due to partial obstruction. A Gastrografin study also was suggestive of partial obstruction/invasion of the a sending portion of the third/fourth segment of the duodenum at the level of the pancreatic mass. With those findings, she was transferred to [facility] for further management. She then underwent upper EUS with fine-needle biopsy of the pancreatic mass on 09/02/2019. The endosonography findings included a malignant appearing mass in the pancreatic body measuring 37 x 25 mm. The mass was noted to encase the splenic artery and at least abut the hepatic artery and superior mesenteric artery. The upstream pancreatic duct was dilated to 3 mm. There was no abnormality noted in the left lobe of the liver or the common bile duct. A few abnormal lymph nodes were visualized in the gastrohepatic ligament and peripancreatic region, with the largest peripancreatic node measuring 11 x 9 mm and the largest gastrohepatic lymph node measuring 11 x 7 mm. Cytology on the EUS was suspicious but not diagnostic. On 09/03/2019 she underwent repeat upper EUS and fine-needle biopsy of the pancreatic mass. 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 Pathology on the 09/03/2019 biopsy did show adenocarcinoma infiltrating fibrosis. The morphology was consistent with pancreaticobiliary primary. Her baseline CA-19-9 was 750 U/mL. She was discharged home on 09/06/2019. I had seen her initially on 09/16/2019. We discussed treatment options. As she was clearly not a suitable candidate for FOLFIRINOX chemotherapy, we discussed the possibility of trial of chemotherapy with gemcitabine/Abraxane versus single agent gemcitabine. With localized disease, the other treatment option we discussed was the possibility of taking radiation as a single modalitiiy or radiation adiministered concurrently with Xeloa. In addition, she was given the option of symptomatic/supportive care only. Ultimately, she opted for the chemoradiation. Her other medical illnesses include hypertension, anemia, type 2 diabetes, and COPD. She has a long history of smoking, previously in the range of 1 pack of cigarettes daily. She currently smokes 1/2 packs/day. INTERIM HISTORY: She is seen today for an unplanned visit. She has started her radiation and Xeloda on 10/13/2019. By that time she was having significant nausea, and I did have her start metoclopramide 10 mg 3 times daily together with famotidine 20 mg twice daily. She also was given a prescription for ondansetron to take as needed. Despite that, she is continued to have severe nausea and last night she was having dry heaves throughout the night. Today she is very weak. She has had very poor appetite and oral intake. She has not had fever or night sweats. She complains of having dry mouth. She has no shortness of breath, cough, or chest pain. She had been constipated as of Sunday, but beginning yesterday she has been having diarrhea. She has no complaints. She has no significant joint or bone pain. She does not complain of headache. She has been having orthostatic lightheadedness. She has no focal neurologic symptoms. Medications: Atorvastatin Calcium 1 Tablet (of 20 mg) Oral daily, Docusate Calcium 1 - 2 Capsule (of 240 mg) Oral daily PRN, Famotidine 1 Tablet (of 20 mg) Oral b.i.d., HYDROmorphone HCl 1 - 2 Tablet (of 2 mg) Oral four times a day PRN, Metoclopramide HCl 1 Tablet (of 5 mg) Oral t.i.d., Ondansetron HCl 1 Tablet (of 4 mg) Oral q 8 hours PRN, Probiotic 1 Capsule Oral daily, Spiriva HandiHaler 1 Capsule (of 18 mcg) Inhalation daily, Vitamin D-3 1 Tablet (of 125 mcg ) Oral daily, Xeloda 2 Tablet (of 500 mg) Oral b.i.d., Xeloda 1 Tablet (of 150 mg) Oral b.i.d. Allergies: Advair Diskus Review of Systems: Constitutional - She feels very weak and she has very limited activity. Her appetite is very poor. No fever, night sweats, or hot flashes. ECOG score is 3, ENMT - No sinus congestion/drainage. She has dry mouth. She has had sore throat. No difficulty swallowing, Hematologic/Lymphatic - She has easy bruising, Respiratory - No shortness of breath. No cough. No pleuritic pain or hemoptysis, Cardiovascular - No angina pain. No palpitations, Gastrointestinal - She is having nausea and dry heaves. She was having constipation. She has had diarrhea for the past 2 days. No blood in the stool or black stools, Genitourinary (F) - No dysuria or hematuria. She has urinary frequency. No urgency or incontinence, Musculoskeletal - She currently has no significant joint or bone pain, Integumentary - No skin complications, Neurologic - No headache. She has orthostatic lightheadedness. No focal neurologic symptoms, Psychiatric - No anxiety or depression. She has chronic insomina. Vital Signs: Performed on Oct 16, 2019 08:59 Height - 65.00 in Temperature - 98.8 F Pulse - 61 /min Respiration - 18 /min BP - 147/61 mm(hg) (HIGH) O2 Sat - 97 % Pain - 0 Fatigue - 6 Physical Examination: Constitutional - She appears generally weak, Eyes - Sclerae nonicteric. Conjunctivae clear, ENMT - Mouth is dry. There is a slight coating on the tongue, Hematologic/Lymphatic - No cervical, clavicular, or axillary adenopathy, Respiratory - Lungs sound clear with diminished air movement bilaterally, Cardiovascular - Heart rhythm is regular. There is a II/ systolic murmur. There is no gallop or rub noted, Abdomen - Soft. Liver and spleen are not enlarged. There is no abdominal mass or ascites noted and there is no inguinal adenopathy, Extremities - No edema, Neurologic - No focal neurologic deficits noted. Lab/Imaging: CBC shows hemoglobin 12.2 g, white blood cell count 7900, and platelet count 183,000. Comprehensive metabolic profile shows normal renal function with BUN 8 and creatinine 0.6 mg/dL. Liver enzymes are normal. Impression: 1. Patient with adenocarcinoma involving the body of the pancreas. By clinical evaluation her disease appears to be stage IIB (T2, N1, M0), but she was deemed inoperable due to ultrasound evidence of encasement of the splenic artery. 2. She had associated obstruction of the third portion of the duodenum for which she has undergone placement of duodenal stent. Her other medical illnesses include: 3. Hypertension. 4. Hyperlipidemia. 5. Type 2 diabetes. 6. COPD. On 10/13/2019 she began radiation concurrently with Xeloda for chemosensitization. She comes in now with severe nausea and associated dry heaves. She also has developed diarrhea. She is very weak, and she has very marginal performance status. Plan: She is being given IV antiemetics and IV hydration today, and her treatment is being put on hold. I think her symptoms are severe enough to warrant and overnight stay in the hospital for further hydration and antiemetic therapy, but she declines. She says she thinks she will be okay if she can just go home and sleep. She is being given a prescription for lorazepam 0.5 mg to take every 4 hours as needed for severe nausea. She is advised, for now, to withhold her other oral antiemetics. She is to return tomorrow for reevaluation and for further IV hydration. Signed By: Liban Wiggins M.D. <<Signature on File>>
[2019-10-17] MEDS: sodium chloride 0.9% 1,000 ML 999 ML IV (09:23)
[2019-10-17 09:56] LABS: Estmated Average Glucose 134; Hemoglobin A1C 6.3 % (4.0-6.0)
[2019-10-27 13:00] LABS: Basophils % 0.4 %; Eosinophils # 0.1 10^3/uL (0.0-0.8); Eosinophils % 1.5 %; Hematocrit 37.2 % (37.0-47.0); Hemoglobin 11.7 g/dL (11.5-15.3); Lymphocytes # 1.6 10^3/uL (0.8-4.8); Lymphocytes % 20.5 %; Mean Corpuscular HGB Conc 31.5 g/dL (30.0-36.0); Mean Corpuscular Hemoglobin 30.5 pg (28.0-34.0); Mean Corpuscular Volume 96.9 fL (81-99); Mean Platelet Volume 10.8 fL (7.4-10.4); Monocytes # 0.6 10^3/uL (0.2-0.9); Monocytes % 8.2 %; Neutrophils # 5.36 10^3/uL (1.8-7.7); Neutrophils % 69.1 %; Nucleated Red Blood Cells % 0 %; Platelet Count 155 10^3/cmm (130-400); Red Blood Count 3.84 10^6/uL (4.1-5.3); Red Cell Distribution Width 13.1 % (12.1-15.1); White Blood Count 7.8 10^3/uL (4.0-10.0)
[2019-10-27 13:37] LABS: 25 Hydroxy Vitamin D 67 ng/mL (30-100); Alanine Aminotransferase 8 U/L (0-33); Albumin Level 3.8 g/dL (3.5-5.2); Alkaline Phosphatase 55 IU/L (35-105); Anion Gap 13.8 (5-19); Aspartate Amino Transferase 11 U/L (0-32); Blood Urea Nitrogen 13 mg/dL (8-23); Calcium 9.3 mg/dL (8.5-10.5); Carbon Dioxide 27 mmol/L (22-29); Chloride 105 mmol/L (98-107); Globulin 2.5 g/dL (1.3-4.6); Glucose 151 mg/dL (65-115); Osmolality Calculated 293 mOsm/kg (285-295); Potassium 3.8 mmol/L (3.5-5.1); Sodium 142 mmol/L (136-145); Total Bilirubin 0.2 mg/dL (0.15-1.2); Total Protein 6.3 g/dL (6.6-8.7)
--- NOTE | 2019-10-27 15:16 | ONC FU_ITS ---
[facility] Patient Note Patient: Misa Calzada Unit #: [id number]: 1935 Dictated By: Zandra KelleyDate of Visit: Oct 27, 2019 Onc MED Follow-Up/Prog Note Chief Complaint: Pancreatic cancer. 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 On 08/25/2019 she was admitted to the hospital after presenting to the emergency room with persistent nausea/vomiting. CT abdomen/pelvis reported a heterogeneous area in the body of the pancreas measuring 5 x 2.2 cm. The appearance was consistent with neoplasm, pancreatitis, or pseudocyst. A repeat CT on 08/29/2019 reported an ill-defined low-attenuation enhancing mass in the body of the pancreas measuring 1.7 x 2.4 cm. Air-fluid levels in the stomach and proximal duodenum with transition point in the third portion of the duodenum were felt to be likely due to partial obstruction. A Gastrografin study also was suggestive of partial obstruction/invasion of the a sending portion of the third/fourth segment of the duodenum at the level of the pancreatic mass. With those findings, she was transferred to [facility] for further management. She then underwent upper EUS with fine-needle biopsy of the pancreatic mass on 09/02/2019. The endosonography findings included a malignant appearing mass in the pancreatic body measuring 37 x 25 mm. The mass was noted to encase the splenic artery and at least abut the hepatic artery and superior mesenteric artery. The upstream pancreatic duct was dilated to 3 mm. There was no abnormality noted in the left lobe of the liver or the common bile duct. A few abnormal lymph nodes were visualized in the gastrohepatic ligament and peripancreatic region, with the largest peripancreatic node measuring 11 x 9 mm and the largest gastrohepatic lymph node measuring 11 x 7 mm. Cytology on the EUS was suspicious but not diagnostic. On 09/03/2019 she underwent repeat upper EUS and fine-needle biopsy of the pancreatic mass. 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 Pathology on the 09/03/2019 biopsy did show adenocarcinoma infiltrating fibrosis. The morphology was consistent with pancreaticobiliary primary. Her baseline CA-19-9 was 750 U/mL. She was discharged home on 09/06/2019. Dr Wiggins had seen her initially on 09/16/2019. We discussed treatment options. As she was clearly not a suitable candidate for FOLFIRINOX chemotherapy, we discussed the possibility of trial of chemotherapy with gemcitabine/Abraxane versus single agent gemcitabine. With localized disease, the other treatment option we discussed was the possibility of taking radiation as a single modalitiiy or radiation adiministered concurrently with Xeloa. In addition, she was given the option of symptomatic/supportive care only. Ultimately, she opted for the chemoradiation. Her other medical illnesses include hypertension, anemia, type 2 diabetes, and COPD. She has a long history of smoking, previously in the range of 1 pack of cigarettes daily. She currently smokes 1/2 packs/day. INTERIM HISTORY: She was seen for an unplanned visit 3 days after starting the chemo/radiation. She has started her radiation and Xeloda on 10/13/2019. By that time she was having significant nausea, and Dr Wiggins did have her start metoclopramide 10 mg 3 times daily together with famotidine 20 mg twice daily. She also was given a prescription for ondansetron to take as needed. Despite that, she continued to have severe nausea and on 10/15/2019 she was having dry heaves throughout the night. She was given IV hydration and antiemetics and her treatment has been on hold. She was started on Compazine and Marinol twice a day. Ms. Fulton is here today for follow-up. She is accompanied by her son Kristofer. She states overall she feels wonderful . She is had no further nausea or vomiting. She states she is eating 3 times a day. She states her bowels have not moved in 3 days her abdomen feels a little full and off . She is concerned about taking the senna because she thinks it may have caused diarrhea in the past most likely was from the Xeloda. She has been doing things around the house and states I had everything in order now . She denies any shortness of breath orthopnea. She has had no chest pain or palpitations. She denies any diarrhea. She has not resumed any of the Xeloda and has not resumed radiation as of yet. She would like to have 100% guarantee that she will not have nausea with the treatment again. I talked with her regarding pre-medicating her prior to the radiation Dr. Wiggins also talked with her and encouraged her to try the radiation if she has persistent nausea that is not controlled we will discuss further treatment plan at that time. I emphasized to her and her son that she needs to communicate with us to let us know how she is doing so that we can adjust her nausea medications as needed. Her ECOG is 1. Past Medical History: Chronic obstructive pulmonary disease Hyperlipidemia Hypertension Type II diabetes Past Surgical History: Bilateral cataract excisions Hysterectomy/bilateral salpingectomy-oophorectomy Left hammer toe repair Left shoulder arthroscopy Tonsillectomy Upper EUS with FNB and with placement of duodenal stent in 2019 Upper EUS with fine needle biopsy of pancreatic body mass in 2019 Colonoscopy in 2013 Allergies: Advair Diskus Medications: Ativan 1 - 2 Tablet (of 0.5 mg) Oral q 4 hours PRN Famotidine 1 Tablet (of 20 mg) Oral b.i.d. HYDROmorphone HCl 1 - 2 Tablet (of 2 mg) Oral four times a day PRN Loperamide HCl 0.5 - 1 Tablet (of 2 mg) Oral Ondansetron HCl 1 Tablet (of 4 mg) Oral q 8 hours PRN Probiotic 1 Capsule Oral daily Spiriva HandiHaler 1 Capsule (of 18 mcg) Inhalation daily Family History: Ms. Calzada's mother at age 59: myocardial infarction. Ms. Calzada's father at age 36: colon cancer. Ms. Calzada has 2 paternal uncles: 2 . Ms. Calzada's first paternal uncle's colon cancer. Another paternal uncle's colon cancer. Father of colon cancer at age 36, and 2 paternal uncles also of colon cancer. Mother of heart attack at age 59. One brother has had a mild stroke but is otherwise in good health. Social History: Ms. Calzada is and she is retired. She is a daily smoker who has smoked 0.5 packs/day for 67 years. She has no history of drinking. She has indicated exposure to the following products: cigarettes. Ms. Calzada reports the following support systems: lives alone, lives in an assisted living environment, supportive family/friends willing to assist with needs, and adequate transportation available for expected visits. Her diet consists of regular meals. She indicates her activity level as: regular exercise. Review Of Symptoms: Constitutional Denies fevers, chills, night sweats, excessive fatigue. Feels wonderful overall. Has had a 2 pound weight loss. She states she is eating three meals a day. Allergic/Immunologic No reactions. Eyes Denies significant visual changes. No diplopia. No amaurosis. ENMT Denies changes in hearing, sore throat, mouth sores, difficulty or changes in swallowing ability, and/or sinus drainage. Hematologic/Lymphatic Denies easy bruising or bleeding. The patient denies any tender or palpable lymph nodes. Respiratory Denies dyspnea on exertion, chest pain, cough or hemoptysis. Denies orthopnea. Cardiovascular Denies anginal chest pain, palpitations or orthopnea. Gastrointestinal Denies nausea, vomiting, diarrhea, GI bleeding, or constipation. Denies change in bowel habits and/or stool color, no heartburn or early satiety. Genitourinary (F) No hematuria, hesitancy, incontinence, vaginal bleeding, discharge or other problems with urination. Musculoskeletal Denies joint pain, swelling or redness. No decreased range of motion. Integumentary Denies chronic rashes, inflammation, ulcerations or skin changes. Neurologic Denies headache, blurred vision, and no areas of focal weakness or numbness. Normal gait. No sensory problems. Psychiatric Denies insomnia, depression, kyra or mood swings. Vital Signs: Performed on Oct 27, 2019 14:02 Height - 65.00 in Weight - 111.6 lbs (LOW) BSA - 1.54 sq.m BMI - 18.57 Temperature - 97.6 F (LOW) Pulse - 73 /min Respiration - 16 /min BP - 149/72 mm(hg) (HIGH) O2 Sat - 95 % (LOW) Pain - 0,1 - No physically strenuous activity, but ambulatory and able to carry out light or sedentary work (e.g. office work, light house work). (ECOG) Physical Examination: Constitutional Alert, oriented, no acute distress. Skin pink, warm and dry. She is very jovial today and accompanied by her son, Kristofer. Head Normocephalic; atraumatic. Eyes Conjunctivae and sclerae are clear and without icterus. Pupils are reactive and equal. Neck Supple without masses or thyromegaly. No jugular venous distension. Hematologic/Lymphatic No petechiae or purpura. No tender or palpable lymph nodes in the cervical or supraclavicular areas. Back/Spine Non-tender to palpation. Extremities No visible deformities, no cyanosis, clubbing or edema. Musculoskeletal No tenderness or swelling, normal range of motion without obvious weakness. Integumentary No rashes or lesions. Neurologic No sensory or motor deficits, normal cerebellar function, normal gait. Psychiatric Alert and oriented times three. Coherent speech. Verbalizes understanding of our discussions today. Laboratory:Test performed on Oct 27, 2019 12:45 Sodium 142 mmol/L Vitamin D (25-Hydroxy), Total 67 ng/mL Potassium 3.8 mmol/L Chloride 105 mmol/L CO2 27 mmol/L Anion Gap 13.8 BUN 13 mg/dL Creatinine 0.7 mg/dL Cr Clearance (Est) 51.4700 mL/min Glucose 151 mg/dL Calcium 9.3 mg/dL Protein, Total 6.3 g/dL Albumin 3.8 g/dL Globulin 2.5 g/dL Bilirubin, Total 0.2 mg/dL ALT (SGPT) 8 U/L AST (SGOT) 11 U/L Alkaline Phosphatase 55 IU/L WBC 7.8 10 3/uL RBC 3.84 10 6/uL HGB 11.7 g/dL HCT 37.2 % MCV 96.9 fL MCH 30.5 pg MCHC 31.5 g/dL RDW 13.1 % Platelet Count 155 10 3/cmm MPV 10.8 fL Neutrophils 5.36 10 3/uL Lymphocytes 1.6 10 3/uL Monocytes 0.6 10 3/uL Eosinophils 0.1 10 3/uL Basophils 0.0 10 3/uL Neutrophil % 69.1 % Lymphocyte % 20.5 % Monocyte % 8.2 % Eosinophil % 1.5 % Basophils % 0.4 % NRBC % 0 % Test performed on Oct 16, 2019 08:42 Hemoglobin A1C % 6.3 % Impression: 1. Patient with adenocarcinoma involving the body of the pancreas. By clinical evaluation her disease appears to be stage IIB (T2, N1, M0), but she was deemed inoperable due to ultrasound evidence of encasement of the splenic artery. 2. She had associated obstruction of the third portion of the duodenum for which she has undergone placement of duodenal stent. Her other medical illnesses include: 3. Hypertension. 4. Hyperlipidemia. 5. Type 2 diabetes. 6. COPD. On 10/13/2019 she began radiation concurrently with Xeloda for chemosensitization. She came in after 3 days of severe nausea and associated dry heaves. She also had developed diarrhea. She was very weak, and she had very marginal performance status. She was given IV antiemetics and hydration for 2 days. She is here today for follow-up. She states she feels wonderful and has recovered well. Her last treatment was on October 15, 2019 with radiation and Xeloda. Plan: 1. Stop Xeloda due to severe nausea and vomiting/dry heaves. 2. Resume radiation therapy on 10/28/2019 when she has a chance to take oral Zofran about 30-60 minutes prior to radiation. She is to continue the Compazine and Marinol twice daily. She was instructed to take the Zofran orally every 8 hours for the first couple of days to make sure she has no nausea. She can then try tapering if she wishes. I did caution her that the Zofran could cause headaches and constipation so will need to make sure her bowels are moving good tonight if possible. 3. I did encourage her to go and do stool softeners at night so we can get her bowels moving before she starts the Zofran and radiation tomorrow. 4. Labs from today were reviewed in detail and discussed with Mrs. Fulton and her son and a copy was given to them. They BC 7.8, hemoglobin 11.7 platelets 155,000 ANC is 5300 potassium 3.8 random glucose 151 creatinine 0.7 LFTs are normal. 5. We will plan to see her back in 1 week for reassessment of her nausea along with radiation. However she is instructed to communicate with us daily as needed to make sure that her nausea stays controlled. 6. She denies any uncontrolled pain. She states she is think she is doing well in the department. 7. We will see her back in 1 week with CBC CMP for further assessment. 8. Ms. daughter was directed to contact us in the interim if questions or problems arise. She is aware that we can be more aggressive with antiemetics if needed with radiation. Signed By: Zandra Kelley-, AOCNP Liban Wiggins MD <<Signature on File>>
[2019-10-27 15:26] LABS: Estmated Average Glucose 137; Hemoglobin A1C 6.4 % (4.0-6.0)
--- NOTE | 2019-10-29 13:55 | ONCRAD TMN_ITS ---
Radiation Oncology Weekly Treatment Management Patient: Misa Calzada MR#: [id number] : 1935> Age: 84> Sex: Female Dictated by: Dr. Tacho Worthy Date of Service: 10/29/2019 Referring Physician(s) : Dr. Parvez Kumar Diagnosis: C25.1 - Malignant neoplasm of body of pancreas, Diagnosed 09/16/2019 (Active) Stage IIB, T2, N1, M0 Radiotherapy to date: Course: Pancreas 2019, Treatment Site: Pancreas 25FX, Ref. ID: [id number], Energy: 15X/6X, Dose/Fx (cGy): 180, #Fx: , Dose Correction (cGy): 0, Total Dose (cGy): 720, Start Date: 10/13/2019, End Date: 10/28/2019, Elapsed Days: 15 Interim history: The patient is seen as a part of her regularly scheduled weekly on treatment visit. She is seen today before treatment. She reports that her nausea is severe. She has not found relief from her nausea despite taking Zofran, Compazine, Marinol, and Ativan. She shares that she desires to cease radiation therapy. Current Medications: Ativan, dilaudid, famotidine, famotidine, hYDROmorphone HCl, loperamide HCl, metoclopramide HCl, nystatin, ondansetron, ondansetron HCl, probiotic, spiriva HandiHaler. Allergies: Advair Diskus. Current Complaints/Review of Systems: Constitutional - Complains of lack of appetite. Complains of severe fatigue. Denies fever and night sweats. Gastrointestinal - Complains of mild abdominal pain that is persistent located in the lower abdomen. Complains of diarrhea which is characterized as loose which happened this morning. Complains of nausea. Complains of pain / cramping. Denies vomiting. Genitourinary (F) - Denies frequency and urgency. Vital Signs: Performed on 10/29/2019 1:29 PM BMI - 18.272 kg/m2 (low), Height - 65.00 in, Weight - 109.8 lbs, Temperature - 98.0 f, Pulse - 66, Respiration - 20, O2 Sat - 99 %, Pain - 3 and BP - 164/ 85 mm(hg)(high/). Physical Exam: Appears stable, no skin erythema or desquamation. Performance Status: 2 - Ambulatory/capable of all self-care, unable to perform any work activities. Up and about more than 50% of waking hours. (ECOG) Lab: None pending in Radiation Oncology. Test performed on 10/16/2019 8:42 AM Hemoglobin A1C % - 6.3 % (high), Test performed on 10/27/2019 12:45 PM RBC - 3.84 10 6/ul (low), MPV - 10.8 fl (high), Cr Clearance (Est) - 51.4700 ml/min (low), Glucose - 151 mg/dl (high) and Protein, Total - 6.3 g/dl (low). Imaging: No new diagnostic imaging was performed since the last weekly treatment visit. All radiation therapy related imaging (including but not limited to kV, MV, and CBCT generated images) was reviewed. Appropriate changes, if any, were made to assure accurate target localization. Impression/Plan: The patient was instructed to double her dose of Compazine, and Marinol in the hopes of getting better control of her nausea. She is currently deciding if she should continue or not with therapy and she will share her decision with us in the next day or two. Signed by: Dr. Tacho Worthy>10/29/2019 1:54:23 PM <<Signature on File>>
[2019-11-03 12:14] LABS: Basophils % 0.5 %; Eosinophils # 0.1 10^3/uL (0.0-0.8); Eosinophils % 2.2 %; Hematocrit 39.8 % (37.0-47.0); Hemoglobin 12.2 g/dL (11.5-15.3); Lymphocytes # 1.5 10^3/uL (0.8-4.8); Lymphocytes % 23.6 %; Mean Corpuscular HGB Conc 30.7 g/dL (30.0-36.0); Mean Corpuscular Hemoglobin 30.4 pg (28.0-34.0); Mean Corpuscular Volume 99.3 fL (81-99); Mean Platelet Volume 10.8 fL (7.4-10.4); Monocytes # 0.4 10^3/uL (0.2-0.9); Neutrophils # 4.16 10^3/uL (1.8-7.7); Neutrophils % 66.5 %; Nucleated Red Blood Cells % 0 %; Platelet Count 160 10^3/cmm (130-400); Red Blood Count 4.01 10^6/uL (4.1-5.3); White Blood Count 6.3 10^3/uL (4.0-10.0)
[2019-11-03 12:42] LABS: Alanine Aminotransferase 11 U/L (0-33); Albumin Level 3.7 g/dL (3.5-5.2); Alkaline Phosphatase 55 IU/L (35-105); Anion Gap 13.6 (5-19); Aspartate Amino Transferase 14 U/L (0-32); Blood Urea Nitrogen 10 mg/dL (8-23); Calcium 8.9 mg/dL (8.5-10.5); Carbon Dioxide 27 mmol/L (22-29); Chloride 106 mmol/L (98-107); Globulin 2.5 g/dL (1.3-4.6); Glucose 154 mg/dL (65-115); Osmolality Calculated 295 mOsm/kg (285-295); Potassium 3.6 mmol/L (3.5-5.1); Sodium 143 mmol/L (136-145); Total Bilirubin 0.3 mg/dL (0.15-1.2); Total Protein 6.2 g/dL (6.6-8.7)
--- NOTE | 2019-11-05 16:08 | ONCRAD TMN_ITS ---
Radiation Oncology Weekly Treatment Management Patient: Misa Calzada MR#: [id number] : 1935 Age: 84 Sex: Female Dictated by: Dr. Tacho Worthy Date of Service: 11/05/2019 Referring Physician(s) : Dr. Parvez Kumar Diagnosis: C25.1 - Malignant neoplasm of body of pancreas, Diagnosed 09/16/2019 (Active) Stage IIB, T2, N1, M0 Radiotherapy to date: Course: Pancreas 2019, Treatment Site: Pancreas 25FX, Ref. ID: [id number], Energy: 15X/6X, Dose/Fx (cGy): 180, #Fx: , Dose Correction (cGy): 0, Total Dose (cGy): 1,080, Start Date: 10/13/2019, Elapsed Days: Chief Complaint/History of Present Illness: She reports mildly improved nausea. She decided to continue with radiation therapy. Current Medications: Ativan, creon, dilaudid, famotidine, famotidine, hYDROmorphone HCl, loperamide HCl, metoclopramide HCl, nystatin, ondansetron, ondansetron HCl, probiotic, prochlorperazine Maleate, prochlorperazine Maleate, spiriva HandiHaler. Allergies: Advair Diskus. Current Complaints/Review of Systems: Constitutional - Complains of lack of appetite off and on and fatigue from the medications she is taking. Denies fever, night sweats and change in weight. ENMT - Denies stomatitis and altered taste. Gastrointestinal - Complains of mild abdominal pain that is persistent which is in the periumbilical region. Complains of nausea. Complains of satiety. Denies constipation, diarrhea, heartburn / dyspepsia and vomiting. Musculoskeletal - Complains of generalized muscle weakness. Vital Signs: Performed on 11/05/2019 1:48 PM BMI - 18.538 kg/m2, Height - 65.00 in, Weight - 111.4 lbs, Temperature - 98.9 f, Pulse - 60, Respiration - 18, O2 Sat - 99 %, Pain - 1 and BP - 149/ 61 mm(hg)(high/low). Physical Exam: Appears stable, no skin erythema or desquamation. Performance Status: 2 - Ambulatory/capable of all self-care, unable to perform any work activities. Up and about more than 50% of waking hours. (ECOG) Lab: None pending in Radiation Oncology. Imaging: All radiation therapy related imaging (including but not limited to kV, MV, and CBCT generated images) was reviewed. Appropriate changes, if any, were made to assure accurate target localization. Impression/Plan: Tolerating treatment well with expected side effects. Continue treatment as planned. CPT: 25826 Signed by: Dr. Tacho Worthy>11/05/2019 4:06:02 PM <<Signature on File>>
--- NOTE | 2019-11-07 10:49 | ONC FU_ITS ---
[facility] Patient Note Patient: Misa Calzada Unit #: [id number]: 1935 Dictated By: Zandra KelleyDate of Visit: Nov 03, 2019 Onc MED Follow-Up/Prog Note Chief Complaint: Pancreatic cancer. 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 On 08/25/2019 she was admitted to the hospital after presenting to the emergency room with persistent nausea/vomiting. CT abdomen/pelvis reported a heterogeneous area in the body of the pancreas measuring 5 x 2.2 cm. The appearance was consistent with neoplasm, pancreatitis, or pseudocyst. A repeat CT on 08/29/2019 reported an ill-defined low-attenuation enhancing mass in the body of the pancreas measuring 1.7 x 2.4 cm. Air-fluid levels in the stomach and proximal duodenum with transition point in the third portion of the duodenum were felt to be likely due to partial obstruction. A Gastrografin study also was suggestive of partial obstruction/invasion of the a sending portion of the third/fourth segment of the duodenum at the level of the pancreatic mass. With those findings, she was transferred to [facility] for further management. She then underwent upper EUS with fine-needle biopsy of the pancreatic mass on 09/02/2019. The endosonography findings included a malignant appearing mass in the pancreatic body measuring 37 x 25 mm. The mass was noted to encase the splenic artery and at least abut the hepatic artery and superior mesenteric artery. The upstream pancreatic duct was dilated to 3 mm. There was no abnormality noted in the left lobe of the liver or the common bile duct. A few abnormal lymph nodes were visualized in the gastrohepatic ligament and peripancreatic region, with the largest peripancreatic node measuring 11 x 9 mm and the largest gastrohepatic lymph node measuring 11 x 7 mm. Cytology on the EUS was suspicious but not diagnostic. On 09/03/2019 she underwent repeat upper EUS and fine-needle biopsy of the pancreatic mass. 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 Pathology on the 09/03/2019 biopsy did show adenocarcinoma infiltrating fibrosis. The morphology was consistent with pancreaticobiliary primary. Her baseline CA-19-9 was 750 U/mL. She was discharged home on 09/06/2019. Dr Wiggins had seen her initially on 09/16/2019. We discussed treatment options. As she was clearly not a suitable candidate for FOLFIRINOX chemotherapy, we discussed the possibility of trial of chemotherapy with gemcitabine/Abraxane versus single agent gemcitabine. With localized disease, the other treatment option we discussed was the possibility of taking radiation as a single modalitiiy or radiation adiministered concurrently with Xeloa. In addition, she was given the option of symptomatic/supportive care only. Ultimately, she opted for the chemoradiation. Her other medical illnesses include hypertension, anemia, type 2 diabetes, and COPD. She has a long history of smoking, previously in the range of 1 pack of cigarettes daily. She currently smokes 1/2 packs/day. INTERIM HISTORY: She was seen for an unplanned visit 3 days after starting the chemo/radiation. She has started her radiation and Xeloda on 10/13/2019. By that time she was having significant nausea, and Dr Wiggins did have her start metoclopramide 10 mg 3 times daily together with famotidine 20 mg twice daily. She also was given a prescription for ondansetron to take as needed. Despite that, she continued to have severe nausea and on 10/15/2019 she was having dry heaves throughout the night. She was given IV hydration and antiemetics and her treatment has been on hold. She was started on Compazine and Marinol twice a day. Ms. Fulton is here today for follow-up. Is alone at her visit today. She states on Sunday after radiation she felt really good. But she did not have a good weekend. She states starting Sunday she had quite a bit of nausea and diarrhea. She states that she just felt pretty washed out and down all weekend. It is hard to determine exactly what she is doing for nausea at home. I did clarify from her that she states she is taking 2 appetite medicines in the morning 1 Compazine probiotic and vitamin D. She thinks she is taking the O medicine in the p.m. She does verify that she has taken the Marinol twice a day and the Compazine twice a day. She is feeling some better today but not dramatic improvement. She does not want a radiation today she does not want to get any more nausea. She is debating on whether or not she wants to continue the radiation at all. We talked at length about being able to control her nausea but need to know exactly what she is doing in order how to direct her from this point on. I encouraged her to keep a diary if possible. She denies any fever or chills. She is had no vomiting. She states she does not eating good and just does not feel well overall. She is not sleeping well. Her weight is actually up about 2 pounds from 28 October. Her ECOG today is 2. Past Medical History: Chronic obstructive pulmonary disease Hyperlipidemia Hypertension Type II diabetes Past Surgical History: Bilateral cataract excisions Hysterectomy/bilateral salpingectomy-oophorectomy Left hammer toe repair Left shoulder arthroscopy Tonsillectomy Upper EUS with FNB and with placement of duodenal stent in 2019 Upper EUS with fine needle biopsy of pancreatic body mass in 2019 Colonoscopy in 2013 Allergies: Advair Diskus Medications: Ativan 1 - 2 Tablet (of 0.5 mg) Oral q 4 hours PRN Famotidine 1 Tablet (of 20 mg) Oral b.i.d. HYDROmorphone HCl 1 - 2 Tablet (of 2 mg) Oral four times a day PRN Loperamide HCl 0.5 - 1 Tablet (of 2 mg) Oral Ondansetron HCl 1 Tablet (of 4 mg) Oral q 8 hours PRN Probiotic 1 Capsule Oral daily Prochlorperazine Maleate 1 Tablet (of 10 mg) Oral b.i.d. Spiriva HandiHaler 1 Capsule (of 18 mcg) Inhalation daily Family History: Ms. Calzada's mother at age 59: myocardial infarction. Ms. Calzada's father at age 36: colon cancer. Ms. Calzada has 2 paternal uncles: 2 . Ms. Calzada's first paternal uncle's colon cancer. Another paternal uncle's colon cancer. Father of colon cancer at age 36, and 2 paternal uncles also of colon cancer. Mother of heart attack at age 59. One brother has had a mild stroke but is otherwise in good health. Social History: Ms. Calzada is and she is retired. She is a daily smoker who has smoked 0.5 packs/day for 67 years. She has no history of drinking. She has indicated exposure to the following products: cigarettes. Ms. Calzada reports the following support systems: lives alone, lives in an assisted living environment, supportive family/friends willing to assist with needs, and adequate transportation available for expected visits. Her diet consists of regular meals. She indicates her activity level as: regular exercise. Review Of Symptoms: Constitutional Denies fevers, chills, night sweats, excessive fatigue. Feels bad today...had nausea and diarrhea over the weekend. Allergic/Immunologic No reactions. Eyes Denies significant visual changes. No diplopia. No amaurosis. ENMT Denies changes in hearing, sore throat, mouth sores, difficulty or changes in swallowing ability, and/or sinus drainage. Hematologic/Lymphatic Denies easy bruising or bleeding. The patient denies any tender or palpable lymph nodes. Respiratory Denies dyspnea on exertion, chest pain, cough or hemoptysis. Denies orthopnea. Cardiovascular Denies anginal chest pain, palpitations or orthopnea. Gastrointestinal diarrhea and nausea started Sunday and diarrhea is resolved today but still having some nausea today. Genitourinary (F) No hematuria, hesitancy, incontinence, vaginal bleeding, discharge or other problems with urination. Musculoskeletal Denies joint pain, swelling or redness. No decreased range of motion. Integumentary Denies chronic rashes, inflammation, ulcerations or skin changes. Neurologic Denies headache, blurred vision, and no areas of focal weakness or numbness. Normal gait. No sensory problems. Psychiatric Denies insomnia, depression, kyra or mood swings. Vital Signs: Performed on Nov 03, 2019 13:41 Height - 65.00 in Weight - 111.8 lbs (HIGH) BSA - 1.54 sq.m BMI - 18.60 Temperature - 97.8 F (LOW) Pulse - 68 /min Respiration - 18 /min BP - 157/74 mm(hg) (HIGH) O2 Sat - 96 % Pain - 0,2 - Ambulatory/capable of all self-care, unable to perform any work activities. Up and about more than 50% of waking hours. (ECOG) Physical Examination: Constitutional Alert, oriented, no acute distress. Skin pink, warm and dry. She is very jovial today and accompanied by her son, Kristofer. Head Normocephalic; atraumatic. Eyes Conjunctivae and sclerae are clear and without icterus. Pupils are reactive and equal. Neck Supple without masses or thyromegaly. No jugular venous distension. Hematologic/Lymphatic No petechiae or purpura. No tender or palpable lymph nodes in the cervical or supraclavicular areas. Respiratory Lungs are clear to auscultation without rhonchi or wheezing. Cardiovascular Regular rate and rhythm of heart without murmurs,clicks, gallops or rubs. Back/Spine Non-tender to palpation. Extremities No visible deformities, no cyanosis, clubbing or edema. Musculoskeletal No tenderness or swelling, normal range of motion without obvious weakness. Integumentary No rashes or lesions. Neurologic No sensory or motor deficits, normal cerebellar function, normal gait. Psychiatric Alert and oriented times three. Coherent speech. Verbalizes understanding of our discussions today. Laboratory:Test performed on Nov 03, 2019 11:59 Sodium 143 mmol/L Potassium 3.6 mmol/L Chloride 106 mmol/L CO2 27 mmol/L Anion Gap 13.6 BUN 10 mg/dL Creatinine 0.6 mg/dL Cr Clearance (Est) 60.0500 mL/min Glucose 154 mg/dL Calcium 8.9 mg/dL Protein, Total 6.2 g/dL Albumin 3.7 g/dL Globulin 2.5 g/dL Bilirubin, Total 0.3 mg/dL ALT (SGPT) 11 U/L AST (SGOT) 14 U/L Alkaline Phosphatase 55 IU/L WBC 6.3 10 3/uL RBC 4.01 10 6/uL HGB 12.2 g/dL HCT 39.8 % MCV 99.3 fL MCH 30.4 pg MCHC 30.7 g/dL RDW 13.0 % Platelet Count 160 10 3/cmm MPV 10.8 fL Neutrophils 4.16 10 3/uL Lymphocytes 1.5 10 3/uL Monocytes 0.4 10 3/uL Eosinophils 0.1 10 3/uL Basophils 0.0 10 3/uL Neutrophil % 66.5 % Lymphocyte % 23.6 % Monocyte % 7.0 % Eosinophil % 2.2 % Basophils % 0.5 % NRBC % 0 % Test performed on Oct 27, 2019 12:45 Vitamin D (25-Hydroxy), Total 67 ng/mL Test performed on Oct 16, 2019 08:42 Hemoglobin A1C % 6.3 % Impression: 1. Patient with adenocarcinoma involving the body of the pancreas. By clinical evaluation her disease appears to be stage IIB (T2, N1, M0), but she was deemed inoperable due to ultrasound evidence of encasement of the splenic artery. 2. She had associated obstruction of the third portion of the duodenum for which she has undergone placement of duodenal stent. Her other medical illnesses include: 3. Hypertension. 4. Hyperlipidemia. 5. Type 2 diabetes. 6. COPD. On 10/13/2019 she began radiation concurrently with Xeloda for chemosensitization. She came in after 3 days of severe nausea and associated dry heaves. She also had developed diarrhea. She was very weak, and she had very marginal performance status. She was given IV antiemetics and hydration for 2 days. She is here today for follow-up. She states she feels wonderful and has recovered well. Her last treatment was on October 15, 2019 with radiation and Xeloda. Her last radiation treatment was on October 17, 2019 as the Xeloda was stopped on October 15, 2019. She has had intermittent nausea with the radiation. She states she did well Sunday after radiation until she developed diarrhea and significant nausea on Sunday. Plan: 1. Remain off of the Xeloda due to severe nausea and vomiting/dry heaves. 2. Resume radiation therapy on 11/04/2019 if she feels up to it and take oral Zofran (ondanestron-her O mediation) 8 mg about 30-60 minutes prior to radiation. She is to continue the Compazine and Marinol twice daily. She was reminded that she can take the Zofran every 6- 8 hours if needed. 3. Labs from today were reviewed in detail and discussed with Mrs. Calzada and her son and a copy was given to them. WBC 6.3, hemoglobin 12.2 platelets 160,000 ANC is 4200 potassium 3.6 random glucose 154 creatinine 0.6 LFTs are normal. 4. We will plan to see her back in 1 week for reassessment of her nausea along with radiation. However she is instructed to communicate with us daily as needed to make sure that her nausea stays controlled. 5. She denies any uncontrolled pain. She states she is think she is doing well in the department. 6. We will refill her Marinol. She is taking 2.5 mg-2 capsules/tablets twice daily and we will change her to 5 mg po BID along with the Compazine 10 mg twice daily. 7. We can use Zyprexa, Scopolamine patch, steroid taper (less desirable due to slightly elevated random glucose) for nausea. Possibly add Kytril if it is available. 8. I gave her instructions to use lorazepam for sleep. She could try Benadryl too as she has had success with it in the past. We did discuss using them together but watch for significant sedation. 9. I did send a prescription for Creon (pancreatic enzymes) to [facility] pharmacy to see about insurance coverage. The dosing was 24,000 units twice daily. This may help with her nausea and abdominal issues if it is something that is affordable and she can try it. 10. I did offer her hydration and antiemetics while she was here but she states she wanted to just go home and rest. Signed By: Zandra Kelley-, [facility] Liban Wiggins MD <<Signature on File>>
== END 2019-11-07 23:59 | disposition home or self-care (01) ==
LOC: ONCMED 06:50
PROVIDERS: Internal Medicine Medical Oncology; Nurse Practitioner; Absent Provider Radiology Radiation Oncology; PCP Electrodiagnostic Medicine; Visit Provider Radiology Radiation Oncology
DX: Z51.0 Encounter for antineoplastic radiation therapy (principal); C25.1 Malignant neoplasm of body of pancreas; I10 Essential (primary) hypertension; D64.9 Anemia, unspecified; E11.42 Type 2 diabetes mellitus with diabetic polyneuropathy; J44.9 Chronic obstructive pulmonary disease, unspecified; F17.210 Nicotine dependence, cigarettes, uncomplicated; F51.04 Psychophysiologic insomnia; R11.2 Nausea with vomiting, unspecified; R19.7 Diarrhea, unspecified; Z79.899 Other long term (current) drug therapy; Z79.891 Long term (current) use of opiate analgesic
CPT/HCPCS: 77336; 77386; 80053; 82306; 83036; 85025; 86301; 96361; 96365; 96367; 99214; J1100; J2405; J3490; J7030

== ENCOUNTER 2019-12-03 05:47 | Outpatient (RCR) | payer MEDICARE, SELFPAY ==
--- NOTE | 2019-11-11 18:24 | ONCRAD TMN_ITS ---
Radiation Oncology Weekly Treatment Management Patient: Misa Calzada MR#: [id number] : 1935> Age: 84> Sex: Female Dictated by: Dr. Tacho Worthy Date of Service: 11/11/2019 Diagnosis: Inoperable Stage IIB T2 N1 M0 adenocarcinoma of the pancreatic body currently being treated with palliative concurrent chemo radiation therapy using Xeloda and a planned aggregate dose of 50.4 Gy in 28 fractions. Radiotherapy to date: Course: Pancreas 2019, Treatment Site: Pancreas 25FX, Ref. ID: [id number], Energy: 15X/6X, Dose/Fx (cGy): 180, #Fx: , Dose Correction (cGy): 0, Total Dose (cGy): 1,800, Start Date: 10/13/2019, Elapsed Days: Reason for visit: The patient is being seen today as part of their regularly scheduled weekly on treatment visits to assess for acute toxicities of radiotherapy. Interim History: The patient reports today that her nausea is well controlled. Her weight is stable and she has an occasional right-sided lower back pain. Current Medications: Ativan, creon, dilaudid, famotidine, famotidine, hYDROmorphone HCl, loperamide HCl, marinol, metoclopramide HCl, ondansetron, ondansetron HCl, probiotic, prochlorperazine Maleate, prochlorperazine Maleate, spiriva HandiHaler. Allergies: Advair Diskus. Current Complaints/Review of Systems: Constitutional - Complains of lack of appetite in the evenings. Complains of moderate fatigue. Denies fever, night sweats and change in weight. Integumentary - No redness to the area of treatment. Gastrointestinal - Complains of nausea occasionally and satiety. Denies heartburn / dyspepsia and vomiting. Musculoskeletal - Has occasional right side lower back pain. Vital Signs: Performed on 11/11/2019 1:49 PM BMI - 18.538 kg/m2, Height - 65.00 in, Weight - 111.4 lbs, Temperature - 97.9 f, Pulse - 60, Respiration - 20, O2 Sat - 95 % (low), Pain - 0 and BP - 137/ 72 mm(hg). Physical Exam: Appears stable, no skin erythema or desquamation. Lungs are clear to auscultation bilaterally. Performance Status: 2 - Ambulatory/capable of all self-care, unable to perform any work activities. Up and about more than 50% of waking hours. (ECOG) Lab: None pending in Radiation Oncology. Test performed on 10/16/2019 8:42 AM Hemoglobin A1C % - 6.3 % (high), Test performed on 11/03/2019 11:59 AM RBC - 4.01 10 6/ul (low), MCV - 99.3 fl (high), MPV - 10.8 fl (high), Cr Clearance (Est) - 60.0500 ml/min (low), Glucose - 154 mg/dl (high) and Protein, Total - 6.2 g/dl (low). Imaging: Radiation therapy imaging related to accurate target localization (i.e. KV, MV and CBCT) was reviewed. Appropriate changes, if any, were made to ensure treatment accuracy. Plan: The patient is tolerating therapy reasonably well. Radiotherapy will continue as planned. CPT: 87826 Signed by: Dr. Tacho Worthy>11/11/2019 6:23:10 PM <<Signature on File>>
[2019-11-12 13:57] LABS: Basophils % 0.4 %; Eosinophils # 0.1 10^3/uL (0.0-0.8); Eosinophils % 2.6 %; Hematocrit 41.2 % (37.0-47.0); Hemoglobin 12.8 g/dL (11.5-15.3); Lymphocytes # 0.8 10^3/uL (0.8-4.8); Lymphocytes % 15.2 %; Mean Corpuscular HGB Conc 31.1 g/dL (30.0-36.0); Mean Corpuscular Hemoglobin 30.8 pg (28.0-34.0); Mean Platelet Volume 11.1 fL (7.4-10.4); Monocytes # 0.5 10^3/uL (0.2-0.9); Monocytes % 8.4 %; Neutrophils # 3.91 10^3/uL (1.8-7.7); Neutrophils % 73.2 %; Nucleated Red Blood Cells % 0 %; Platelet Count 175 10^3/cmm (130-400); Red Blood Count 4.16 10^6/uL (4.1-5.3); Red Cell Distribution Width 13.1 % (12.1-15.1); White Blood Count 5.3 10^3/uL (4.0-10.0)
[2019-11-12 14:26] LABS: Alanine Aminotransferase 8 U/L (0-33); Albumin Level 4.1 g/dL (3.5-5.2); Alkaline Phosphatase 60 IU/L (35-105); Aspartate Amino Transferase 13 U/L (0-32); Blood Urea Nitrogen 11 mg/dL (8-23); Calcium 9.6 mg/dL (8.5-10.5); Carbon Dioxide 28 mmol/L (22-29); Chloride 103 mmol/L (98-107); Globulin 2.5 g/dL (1.3-4.6); Glucose 165 mg/dL (65-115); Osmolality Calculated 290 mOsm/kg (285-295); Sodium 140 mmol/L (136-145); Total Bilirubin 0.3 mg/dL (0.15-1.2); Total Protein 6.6 g/dL (6.6-8.7)
[2019-11-12 15:03] LABS: Anion Gap 12.7 (5-19); Potassium 3.7 mmol/L (3.5-5.1)
--- NOTE | 2019-11-13 09:22 | ONC FU_ITS ---
[facility] Patient Note Patient: Misa Calzada Unit #: [id number]: 1935 Dictated By: Zandra KelleyDate of Visit: Nov 13, 2019 Onc MED Follow-Up/Prog Note Chief Complaint: Pancreatic cancer. 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 On 08/25/2019 she was admitted to the hospital after presenting to the emergency room with persistent nausea/vomiting. CT abdomen/pelvis reported a heterogeneous area in the body of the pancreas measuring 5 x 2.2 cm. The appearance was consistent with neoplasm, pancreatitis, or pseudocyst. A repeat CT on 08/29/2019 reported an ill-defined low-attenuation enhancing mass in the body of the pancreas measuring 1.7 x 2.4 cm. Air-fluid levels in the stomach and proximal duodenum with transition point in the third portion of the duodenum were felt to be likely due to partial obstruction. A Gastrografin study also was suggestive of partial obstruction/invasion of the a sending portion of the third/fourth segment of the duodenum at the level of the pancreatic mass. With those findings, she was transferred to [facility] for further management. She then underwent upper EUS with fine-needle biopsy of the pancreatic mass on 09/02/2019. The endosonography findings included a malignant appearing mass in the pancreatic body measuring 37 x 25 mm. The mass was noted to encase the splenic artery and at least abut the hepatic artery and superior mesenteric artery. The upstream pancreatic duct was dilated to 3 mm. There was no abnormality noted in the left lobe of the liver or the common bile duct. A few abnormal lymph nodes were visualized in the gastrohepatic ligament and peripancreatic region, with the largest peripancreatic node measuring 11 x 9 mm and the largest gastrohepatic lymph node measuring 11 x 7 mm. Cytology on the EUS was suspicious but not diagnostic. On 09/03/2019 she underwent repeat upper EUS and fine-needle biopsy of the pancreatic mass. 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 Pathology on the 09/03/2019 biopsy did show adenocarcinoma infiltrating fibrosis. The morphology was consistent with pancreaticobiliary primary. Her baseline CA-19-9 was 750 U/mL. She was discharged home on 09/06/2019. Dr Wiggins had seen her initially on 09/16/2019. We discussed treatment options. As she was clearly not a suitable candidate for FOLFIRINOX chemotherapy, we discussed the possibility of trial of chemotherapy with gemcitabine/Abraxane versus single agent gemcitabine. With localized disease, the other treatment option we discussed was the possibility of taking radiation as a single modalitiiy or radiation adiministered concurrently with Xeloa. In addition, she was given the option of symptomatic/supportive care only. Ultimately, she opted for the chemoradiation. Her other medical illnesses include hypertension, anemia, type 2 diabetes, and COPD. She has a long history of smoking, previously in the range of 1 pack of cigarettes daily. She currently smokes 1/2 packs/day. INTERIM HISTORY: She was seen for an unplanned visit 3 days after starting the chemo/radiation. She has started her radiation and Xeloda on 10/13/2019. By that time she was having significant nausea, and Dr Wiggins did have her start metoclopramide 10 mg 3 times daily together with famotidine 20 mg twice daily. She also was given a prescription for ondansetron to take as needed. Despite that, she continued to have severe nausea and on 10/15/2019 she was having dry heaves throughout the night. She was given IV hydration and antiemetics and her treatment has been on hold. She was started on Compazine and Marinol twice a day. Ms. Fulton is here today for follow-up. She is alone at her visit today. She states she had nausea and diarrhea last night. She states that she feels real sleepy today. She states she is eating good. She has felt good in general through the week until last night. She is seeing a pattern of nausea and diarrhea after 3 radiation treatments. We did offer her hydration today or tomorrow. She did not want to pursue that today, but was encouraged to consider it for tomorrow if she has another bad night . She denies any pain. SHe denies fever or chills. She denies mouth sores, sore throat or trouble swallowing. She is having some intermittent congestion but has been off her Mucinex. She was given the ok to resume the Mucinex. Her ECOG is 1. Past Medical History: Chronic obstructive pulmonary disease Hyperlipidemia Hypertension Type II diabetes Past Surgical History: Bilateral cataract excisions Hysterectomy/bilateral salpingectomy-oophorectomy Left hammer toe repair Left shoulder arthroscopy Tonsillectomy Upper EUS with FNB and with placement of duodenal stent in 2019 Upper EUS with fine needle biopsy of pancreatic body mass in 2019 Colonoscopy in 2013 Allergies: Advair Diskus Medications: Ativan 1 - 2 Tablet (of 0.5 mg) Oral q 4 hours PRN Famotidine 1 Tablet (of 20 mg) Oral b.i.d. HYDROmorphone HCl 1 - 2 Tablet (of 2 mg) Oral four times a day PRN Loperamide HCl 0.5 - 1 Tablet (of 2 mg) Oral Ondansetron HCl 1 Tablet (of 4 mg) Oral q 8 hours PRN Probiotic 1 Capsule Oral daily Prochlorperazine Maleate 1 Tablet (of 10 mg) Oral b.i.d. Spiriva HandiHaler 1 Capsule (of 18 mcg) Inhalation daily Family History: Ms. Calzada's mother at age 59: myocardial infarction. Ms. Calzada's father at age 36: colon cancer. Ms. Calzada has 2 paternal uncles: 2 . Ms. Calzada's first paternal uncle's colon cancer. Another paternal uncle's colon cancer. Father of colon cancer at age 36, and 2 paternal uncles also of colon cancer. Mother of heart attack at age 59. One brother has had a mild stroke but is otherwise in good health. Social History: Ms. Calzada is and she is retired. She is a daily smoker who has smoked 0.5 packs/day for 67 years. She has no history of drinking. She has indicated exposure to the following products: cigarettes. Ms. Calzada reports the following support systems: lives alone, lives in an assisted living environment, supportive family/friends willing to assist with needs, and adequate transportation available for expected visits. Her diet consists of regular meals. She indicates her activity level as: regular exercise. Review Of Symptoms: Constitutional Denies fevers, chills, night sweats, excessive fatigue. Feels a little washed out today...had nausea and diarrhea last night-resolved this am. Allergic/Immunologic No reactions. Eyes Denies significant visual changes. No diplopia. No amaurosis. ENMT Denies changes in hearing, sore throat, mouth sores, difficulty or changes in swallowing ability, and/or sinus drainage. Hematologic/Lymphatic Denies easy bruising or bleeding. The patient denies any tender or palpable lymph nodes. Respiratory Denies dyspnea on exertion, chest pain, cough or hemoptysis. Denies orthopnea. Cardiovascular Denies anginal chest pain, palpitations or orthopnea. Gastrointestinal diarrhea and nausea started Sunday and diarrhea is resolved today but still having some slight nausea today. Genitourinary (F) No hematuria, hesitancy, incontinence, vaginal bleeding, discharge or other problems with urination. Musculoskeletal Denies joint pain, swelling or redness. No decreased range of motion. Integumentary Denies chronic rashes, inflammation, ulcerations or skin changes. Neurologic Denies headache, blurred vision, and no areas of focal weakness or numbness. Normal gait. No sensory problems. Psychiatric Denies insomnia, depression, kyra or mood swings. Vital Signs: Performed on Nov 13, 2019 08:41 Height - 65.00 in Weight - 110.4 lbs (LOW) BSA - 1.54 sq.m BMI - 18.37 Temperature - 97.8 F (LOW) Pulse - 64 /min Respiration - 17 /min BP - 160/59 mm(hg) (HIGH) O2 Sat - 99 % Pain - 0,1 - No physically strenuous activity, but ambulatory and able to carry out light or sedentary work (e.g. office work, light house work). (ECOG) Physical Examination: Constitutional Alert, oriented, no acute distress. Skin pink, warm and dry. She is very jovial today and accompanied by her son, Kristofer. Head Normocephalic; atraumatic. Eyes Conjunctivae and sclerae are clear and without icterus. Pupils are reactive and equal. Neck Supple without masses or thyromegaly. No jugular venous distension. Hematologic/Lymphatic No petechiae or purpura. Respiratory Lungs are clear to auscultation without rhonchi or wheezing. Cardiovascular Regular rate and rhythm of heart without murmurs,clicks, gallops or rubs. Back/Spine Non-tender to palpation. Extremities No visible deformities, no cyanosis, clubbing or edema. Musculoskeletal No tenderness or swelling, normal range of motion without obvious weakness. Integumentary No rashes or lesions. Neurologic No sensory or motor deficits, normal cerebellar function, normal gait. Psychiatric Alert and oriented times three. Coherent speech. Verbalizes understanding of our discussions today. Laboratory:Test performed on Nov 03, 2019 11:59 Sodium 143 mmol/L Potassium 3.6 mmol/L Chloride 106 mmol/L CO2 27 mmol/L Anion Gap 13.6 BUN 10 mg/dL Creatinine 0.6 mg/dL Cr Clearance (Est) 60.0500 mL/min Glucose 154 mg/dL Calcium 8.9 mg/dL Protein, Total 6.2 g/dL Albumin 3.7 g/dL Globulin 2.5 g/dL Bilirubin, Total 0.3 mg/dL ALT (SGPT) 11 U/L AST (SGOT) 14 U/L Alkaline Phosphatase 55 IU/L WBC 6.3 10 3/uL RBC 4.01 10 6/uL HGB 12.2 g/dL HCT 39.8 % MCV 99.3 fL MCH 30.4 pg MCHC 30.7 g/dL RDW 13.0 % Platelet Count 160 10 3/cmm MPV 10.8 fL Neutrophils 4.16 10 3/uL Lymphocytes 1.5 10 3/uL Monocytes 0.4 10 3/uL Eosinophils 0.1 10 3/uL Basophils 0.0 10 3/uL Neutrophil % 66.5 % Lymphocyte % 23.6 % Monocyte % 7.0 % Eosinophil % 2.2 % Basophils % 0.5 % NRBC % 0 % Test performed on Oct 27, 2019 12:45 Vitamin D (25-Hydroxy), Total 67 ng/mL Test performed on Oct 16, 2019 08:42 Hemoglobin A1C % 6.3 % Impression: 1. Patient with adenocarcinoma involving the body of the pancreas. By clinical evaluation her disease appears to be stage IIB (T2, N1, M0), but she was deemed inoperable due to ultrasound evidence of encasement of the splenic artery. 2. She had associated obstruction of the third portion of the duodenum for which she has undergone placement of duodenal stent. Her other medical illnesses include: 3. Hypertension. 4. Hyperlipidemia. 5. Type 2 diabetes. 6. COPD. On 10/13/2019 she began radiation concurrently with Xeloda for chemosensitization. She came in after 3 days of severe nausea and associated dry heaves. She also had developed diarrhea. She was very weak, and she had very marginal performance status. She was given IV antiemetics and hydration for 2 days. She is here today for follow-up. She states she feels wonderful and has recovered well. Her last treatment was on October 15, 2019 with radiation and Xeloda. Her last radiation treatment was on October 17, 2019 as the Xeloda was stopped on October 15, 2019. She has had intermittent nausea with the radiation. She states she did well Sunday after radiation (she states she had had 3 treatments in a row) until she developed diarrhea and significant nausea on Sunday. That was better by Sunday and she has felt good through the week until she had 3 radiation treatments in a row this week. She developed nausea and diarrhea last night. She took one Imodium and her nausea meds and states she feels better today. Plan: 1. Remain off of the Xeloda due to severe nausea and vomiting/dry heaves. 2. Resumed radiation therapy on 11/04/2019 and takes oral Zofran (ondanestron-her O mediation) 8 mg about 30-60 minutes prior to radiation. She is to continue the Compazine and Marinol 2.5 mg (2 tabs) twice daily. She was reminded that she can take the Zofran every 6- 8 hours if needed. 3. Labs from 11/12/2019 were reviewed in detail and discussed with Mrs. Calzada and a copy was given to her. WBC 5.3, hemoglobin 12.8 platelets 175,000 ANC is 3900 potassium 3.7 random glucose 165 creatinine 0.7 LFTs are normal. 4. We will plan to see her back in 1 week for reassessment of her nausea along with radiation. However she is instructed to communicate with us daily as needed to make sure that her nausea stays controlled. 5. She denies any uncontrolled pain. 6. Continue Marinol. She is taking 2.5 mg-2 capsules/tablets twice daily and we will change her to 5 mg po BID along with the Compazine 10 mg twice daily. 7. We can use Zyprexa, Scopolamine patch, steroid taper (less desirable due to slightly elevated random glucose) for nausea. Kytril may also be a benefit for radiation induced nausae. 8. She may resume Mucinex-max dose of 1200 mg BID. 9. I previously sent a prescription for Creon (pancreatic enzymes) to [facility] [place] [facility] pharmacy to see about insurance coverage. The dosing was 24,000 units twice daily. This may help with her nausea and abdominal issues if it is something that is affordable and she can try it. She is currently not taking them as she states her abdominal issues are much better and I don't want another pill right now . 10. I did offer her hydration and antiemetics while she was here but she states she thinks she is ok for now. She could do them tomorrow if she has another rough night . Signed By: Zandra Kelley-, AOCNP Liban Wiggins MD <<Signature on File>>
--- NOTE | 2019-11-18 14:10 | ONCRAD TMN_ITS ---
Radiation Oncology Weekly Treatment Management Patient: Elsi Bynum MR#: [id number] : 1935 Age: 84 Sex: Female Dictated by: Dr. Tacho Worthy Date of Service: 11/18/2019 Referring Physician(s) : Dr. Parvez Kumar Diagnosis: Inoperable Stage IIB T2 N1 M0 adenocarcinoma of the pancreatic body currently being treated with palliative concurrent chemo radiation therapy using Xeloda and a planned aggregate dose of 50.4 Gy in 28 fractions. She received about three days of Xeloda before discontinuing systemic therapy. Radiotherapy to date: Course: Pancreas 2019, Treatment Site: Pancreas 25FX, Ref. ID: [id number], Energy: 15X/6X, Dose/Fx (cGy): 180, #Fx: 15 , Dose Correction (cGy): 0, Total Dose (cGy): 2,700, Start Date: 10/13/2019, Elapsed Days: 36 Reason for visit: The patient is being seen today as part of their regularly scheduled weekly on treatment visits to assess for acute toxicities from radiotherapy. Interim History: Aside from significant fatigue, she has no complaints. Her nausea is controlled and she asked for a refill of Zofran. Current Medications: Ativan, creon, dilaudid, famotidine, famotidine, hYDROmorphone HCl, loperamide HCl, marinol, metoclopramide HCl, ondansetron, ondansetron HCl, probiotic, prochlorperazine Maleate, prochlorperazine Maleate, spiriva HandiHaler. Allergies: Advair Diskus. Vital Signs: Performed on 11/18/2019 1:46 PM BMI - 18.438 kg/m2 (low), Height - 65.00 in, Weight - 110.8 lbs, Temperature - 98.4 f, Pulse - 61, Respiration - 18, O2 Sat - 97 %, Pain - 0, Fatigue - 8 and BP - 155/ 54 mm(hg)(high/low). Physical Exam: Appears stable, no skin erythema or desquamation. Performance Status: 1 - No physically strenuous activity, but ambulatory and able to carry out light or sedentary work (e.g. office work, light house work). (ECOG) Lab: None pending in Radiation Oncology. Imaging: Radiation therapy imaging related to accurate target localization (i.e. KV, MV and CBCT) was reviewed. Appropriate changes, if any, were made to ensure treatment accuracy. Plan: The patient is tolerating therapy reasonably well. Radiotherapy will continue as planned. CPT: 73696 Signed by: Dr. Tacho Worthy 11/18/2019 2:08:50 PM
[2019-11-19 13:46] LABS: Basophils % 0.5 %; Eosinophils # 0.1 10^3/uL (0.0-0.8); Eosinophils % 2.4 %; Hematocrit 39.2 % (37.0-47.0); Hemoglobin 12.1 g/dL (11.5-15.3); Lymphocytes # 0.7 10^3/uL (0.8-4.8); Lymphocytes % 12.6 %; Mean Corpuscular HGB Conc 30.9 g/dL (30.0-36.0); Mean Corpuscular Hemoglobin 30.4 pg (28.0-34.0); Mean Corpuscular Volume 98.5 fL (81-99); Mean Platelet Volume 11.2 fL (7.4-10.4); Monocytes # 0.5 10^3/uL (0.2-0.9); Monocytes % 9.2 %; Neutrophils # 4.43 10^3/uL (1.8-7.7); Neutrophils % 75.1 %; Nucleated Red Blood Cells % 0 %; Platelet Count 149 10^3/cmm (130-400); Red Blood Count 3.98 10^6/uL (4.1-5.3); White Blood Count 5.9 10^3/uL (4.0-10.0)
[2019-11-19 14:06] LABS: Alanine Aminotransferase 7 U/L (0-33); Albumin Level 3.9 g/dL (3.5-5.2); Alkaline Phosphatase 59 IU/L (35-105); Anion Gap 12.4 (5-19); Aspartate Amino Transferase 10 U/L (0-32); Blood Urea Nitrogen 11 mg/dL (8-23); Calcium 9.4 mg/dL (8.5-10.5); Carbon Dioxide 27 mmol/L (22-29); Chloride 106 mmol/L (98-107); Globulin 2.1 g/dL (1.3-4.6); Glucose 140 mg/dL (65-115); Osmolality Calculated 292 mOsm/kg (285-295); Potassium 3.4 mmol/L (3.5-5.1); Sodium 142 mmol/L (136-145); Total Bilirubin 0.2 mg/dL (0.15-1.2)
--- NOTE | 2019-11-22 21:09 | ONC FU_ITS ---
[facility] Patient Note Patient: Misa Calzada Unit #: [id number]: 1935 Dictated By: Zandra KelleyDate of Visit: Nov 20, 2019 Onc MED Follow-Up/Prog Note Chief Complaint: Pancreatic cancer. 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 On 08/25/2019 she was admitted to the hospital after presenting to the emergency room with persistent nausea/vomiting. CT abdomen/pelvis reported a heterogeneous area in the body of the pancreas measuring 5 x 2.2 cm. The appearance was consistent with neoplasm, pancreatitis, or pseudocyst. A repeat CT on 08/29/2019 reported an ill-defined low-attenuation enhancing mass in the body of the pancreas measuring 1.7 x 2.4 cm. Air-fluid levels in the stomach and proximal duodenum with transition point in the third portion of the duodenum were felt to be likely due to partial obstruction. A Gastrografin study also was suggestive of partial obstruction/invasion of the a sending portion of the third/fourth segment of the duodenum at the level of the pancreatic mass. With those findings, she was transferred to [facility] [place] [facility] management. She then underwent upper EUS with fine-needle biopsy of the pancreatic mass on 09/02/2019. The endosonography findings included a malignant appearing mass in the pancreatic body measuring 37 x 25 mm. The mass was noted to encase the splenic artery and at least abut the hepatic artery and superior mesenteric artery. The upstream pancreatic duct was dilated to 3 mm. There was no abnormality noted in the left lobe of the liver or the common bile duct. A few abnormal lymph nodes were visualized in the gastrohepatic ligament and peripancreatic region, with the largest peripancreatic node measuring 11 x 9 mm and the largest gastrohepatic lymph node measuring 11 x 7 mm. Cytology on the EUS was suspicious but not diagnostic. On 09/03/2019 she underwent repeat upper EUS and fine-needle biopsy of the pancreatic mass. 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 Pathology on the 09/03/2019 biopsy did show adenocarcinoma infiltrating fibrosis. The morphology was consistent with pancreaticobiliary primary. Her baseline CA-19-9 was 750 U/mL. She was discharged home on 09/06/2019. Dr Wiggins had seen her initially on 09/16/2019. We discussed treatment options. As she was clearly not a suitable candidate for FOLFIRINOX chemotherapy, we discussed the possibility of trial of chemotherapy with gemcitabine/Abraxane versus single agent gemcitabine. With localized disease, the other treatment option we discussed was the possibility of taking radiation as a single modalitiiy or radiation adiministered concurrently with Xeloa. In addition, she was given the option of symptomatic/supportive care only. Ultimately, she opted for the chemoradiation. Her other medical illnesses include hypertension, anemia, type 2 diabetes, and COPD. She has a long history of smoking, previously in the range of 1 pack of cigarettes daily. She currently smokes 1/2 packs/day. INTERIM HISTORY: She was seen for an unplanned visit 3 days after starting the chemo/radiation. She has started her radiation and Xeloda on 10/13/2019. By that time she was having significant nausea, and Dr Wiggins did have her start metoclopramide 10 mg 3 times daily together with famotidine 20 mg twice daily. She also was given a prescription for ondansetron to take as needed. Despite that, she continued to have severe nausea and on 10/15/2019 she was having dry heaves throughout the night. She was given IV hydration and antiemetics and her treatment has been on hold. She was started on Compazine and Marinol twice a day. Ms. [place] is here today for follow-up. She is alone at her visit today. She states she had nausea and diarrhea over the weekend but that has resolved. She states that she feels real sleepy today. She states she is eating good. She denies any pain. SHe denies fever or chills. She denies mouth sores, sore throat or trouble swallowing. Her ECOG is 1. Past Medical History: Chronic obstructive pulmonary disease Hyperlipidemia Hypertension Type II diabetes Past Surgical History: Bilateral cataract excisions Hysterectomy/bilateral salpingectomy-oophorectomy Left hammer toe repair Left shoulder arthroscopy Tonsillectomy Upper EUS with FNB and with placement of duodenal stent in 2019 Upper EUS with fine needle biopsy of pancreatic body mass in 2019 Colonoscopy in 2013 Allergies: Advair Diskus Medications: Ativan 1 - 2 Tablet (of 0.5 mg) Oral q 4 hours PRN Famotidine 1 Tablet (of 20 mg) Oral b.i.d. HYDROmorphone HCl 1 - 2 Tablet (of 2 mg) Oral four times a day PRN Loperamide HCl 0.5 - 1 Tablet (of 2 mg) Oral Ondansetron HCl 1 Tablet (of 4 mg) Oral q 8 hours PRN Probiotic 1 Capsule Oral daily Prochlorperazine Maleate 1 Tablet (of 10 mg) Oral b.i.d. Spiriva HandiHaler 1 Capsule (of 18 mcg) Inhalation daily Family History: Ms. Calzada's mother at age 59: myocardial infarction. Ms. Calzada's father at age 36: colon cancer. Ms. Calzada has 2 paternal uncles: 2 . Ms. Calzada's first paternal uncle's colon cancer. Another paternal uncle's colon cancer. Father of colon cancer at age 36, and 2 paternal uncles also of colon cancer. Mother of heart attack at age 59. One brother has had a mild stroke but is otherwise in good health. Social History: Ms. Calzada is and she is retired. She is a daily smoker who has smoked 0.5 packs/day for 67 years. She has no history of drinking. She has indicated exposure to the following products: cigarettes. Ms. Calzada reports the following support systems: lives alone, lives in an assisted living environment, supportive family/friends willing to assist with needs, and adequate transportation available for expected visits. Her diet consists of regular meals. She indicates her activity level as: regular exercise. Review Of Symptoms: Constitutional Denies fevers, chills, night sweats, excessive fatigue. Feels a little washed out today...had nausea and diarrhea last night-resolved this am. Allergic/Immunologic No reactions. Eyes Denies significant visual changes. No diplopia. No amaurosis. ENMT Denies changes in hearing, sore throat, mouth sores, difficulty or changes in swallowing ability, and/or sinus drainage. Hematologic/Lymphatic Denies easy bruising or bleeding. The patient denies any tender or palpable lymph nodes. Respiratory Denies dyspnea on exertion, chest pain, cough or hemoptysis. Denies orthopnea. Cardiovascular Denies anginal chest pain, palpitations or orthopnea. Gastrointestinal diarrhea and nausea started Sunday and diarrhea is resolved today but still having some slight nausea today. Genitourinary (F) No hematuria, hesitancy, incontinence, vaginal bleeding, discharge or other problems with urination. Musculoskeletal Denies joint pain, swelling or redness. No decreased range of motion. Integumentary Denies chronic rashes, inflammation, ulcerations or skin changes. Neurologic Denies headache, blurred vision, and no areas of focal weakness or numbness. Normal gait. No sensory problems. Psychiatric Denies insomnia, depression, kyra or mood swings. Vital Signs: Performed on Nov 20, 2019 09:05 Height - 65.00 in Weight - 109.4 lbs (LOW) BSA - 1.53 sq.m BMI - 18.21 Temperature - 97.6 F (LOW) Pulse - 74 /min Respiration - 16 /min BP - 160/66 mm(hg) (HIGH) O2 Sat - 96 % Pain - 0,2 - Ambulatory/capable of all self-care, unable to perform any work activities. Up and about more than 50% of waking hours. (ECOG) Physical Examination: Constitutional Alert, oriented, no acute distress. Skin pink, warm and dry. She is very jovial today. Head Normocephalic; atraumatic. Eyes Conjunctivae and sclerae are clear and without icterus. Pupils are reactive and equal. Neck Supple without masses or thyromegaly. No jugular venous distension. Hematologic/Lymphatic No petechiae or purpura. Respiratory Lungs are clear to auscultation without rhonchi or wheezing. Cardiovascular Regular rate and rhythm of heart without murmurs,clicks, gallops or rubs. Back/Spine Non-tender to palpation. Extremities No visible deformities, no cyanosis, clubbing or edema. Musculoskeletal No tenderness or swelling, normal range of motion without obvious weakness. Integumentary No rashes or lesions. Neurologic No sensory or motor deficits, normal cerebellar function, normal gait. Psychiatric Alert and oriented times three. Coherent speech. Verbalizes understanding of our discussions today. Laboratory:Test performed on Nov 19, 2019 13:25 Sodium 142 mmol/L Potassium 3.4 mmol/L Chloride 106 mmol/L CO2 27 mmol/L Anion Gap 12.4 BUN 11 mg/dL Creatinine 0.7 mg/dL Cr Clearance (Est) 51.4700 mL/min Glucose 140 mg/dL Calcium 9.4 mg/dL Protein, Total 6.0 g/dL Albumin 3.9 g/dL Globulin 2.1 g/dL Bilirubin, Total 0.2 mg/dL ALT (SGPT) 7 U/L AST (SGOT) 10 U/L Alkaline Phosphatase 59 IU/L WBC 5.9 10 3/uL RBC 3.98 10 6/uL HGB 12.1 g/dL HCT 39.2 % MCV 98.5 fL MCH 30.4 pg MCHC 30.9 g/dL RDW 13.0 % Platelet Count 149 10 3/cmm MPV 11.2 fL Neutrophils 4.43 10 3/uL Lymphocytes 0.7 10 3/uL Monocytes 0.5 10 3/uL Eosinophils 0.1 10 3/uL Basophils 0.0 10 3/uL Neutrophil % 75.1 % Lymphocyte % 12.6 % Monocyte % 9.2 % Eosinophil % 2.4 % Basophils % 0.5 % NRBC % 0 % Test performed on Oct 27, 2019 12:45 Vitamin D (25-Hydroxy), Total 67 ng/mL Test performed on Oct 16, 2019 08:42 Hemoglobin A1C % 6.3 % Impression: 1. Patient with adenocarcinoma involving the body of the pancreas. By clinical evaluation her disease appears to be stage IIB (T2, N1, M0), but she was deemed inoperable due to ultrasound evidence of encasement of the splenic artery. 2. She had associated obstruction of the third portion of the duodenum for which she has undergone placement of duodenal stent. Her other medical illnesses include: 3. Hypertension. 4. Hyperlipidemia. 5. Type 2 diabetes. 6. COPD. On 10/13/2019 she began radiation concurrently with Xeloda for chemosensitization. She came in after 3 days of severe nausea and associated dry heaves. She also had developed diarrhea. She was very weak, and she had very marginal performance status. She was given IV antiemetics and hydration for 2 days. She is here today for follow-up. She states she feels wonderful and has recovered well. Her last treatment was on October 15, 2019 with radiation and Xeloda. Her last radiation treatment was on October 17, 2019 as the Xeloda was stopped on October 15, 2019. She has had intermittent nausea with the radiation. She states she did well Sunday after radiation (she states she had had 3 treatments in a row) until she developed diarrhea and significant nausea on Sunday. That was better by Sunday and she has felt good through the week until she had 3 radiation treatments in a row this week. She developed nausea and diarrhea last night. She took one Imodium and her nausea meds and states she feels better today. Plan: 1. Remain off of the Xeloda due to severe nausea and vomiting/dry heaves. 2. Resumed radiation therapy on 11/04/2019 and takes oral Zofran (ondanestron-her O mediation) 8 mg about 30-60 minutes prior to radiation. She is to continue the Compazine and Marinol 2.5 mg (2 tabs) twice daily. She was reminded that she can take the Zofran 4 mg 1 or 2 tablets every 6- 8 hours if needed. 3. Labs from 11/19/2019 were reviewed in detail and discussed with Mrs. Calzada and a copy was given to her. WBC 5.9, hemoglobin 12.1 platelets 149,000 ANC is 4400 creatinine 0.7 LFTs are normal. 4. We will plan to see her back in 4-6 weeks for post treatment followup. She states she completes radiation in 8 or 9 days. 5. She denies any uncontrolled pain. 6. Continue Marinol. She is taking 2.5 mg-2 capsules/tablets twice daily and we will change her to 5 mg po BID along with the Compazine 10 mg twice daily. 7. We can use Zyprexa, Scopolamine patch, steroid taper (less desirable due to slightly elevated random glucose) for nausea. Kytril may also be a benefit for radiation induced nausea. 8. I previously sent a prescription for Creon (pancreatic enzymes) to [facility] [place] pharmacy to see about insurance coverage. The dosing was 24,000 units twice daily. This may help with her nausea and abdominal issues if it is something that is affordable and she can try it. She is currently not taking them as she states her abdominal issues are much better and I don't want another pill right now . 9. I did advise her that she could travel with the routine COVID-19 precautions during her off treatment time . She was concerned that she would not have any followup imaging immediately after treatment. She did not want her son to have to stay here until he knows how everything is going . She states she would like for him to go see his family. I asked her if she could go back home with him. She stated she wasn't sure if she could travel because of the treatment. I told her that as long as she was feeling good, she should be able to travel. She then mentioned going to [place]. She does not have formal plans at this time. 10. I did offer her hydration and antiemetics if she feels like she needs them as she completes radiation. Thus far she has not needed them per her report. Signed By: Zandra Kelley-, CNP Liban Wiggins MD <<Signature on File>>
--- NOTE | 2019-11-25 14:20 | ONCRAD TMN_ITS ---
Radiation Oncology Weekly Treatment Management Patient: Elsi Bynum MR#: [id number] : 1935 Age: 84 Sex: Female Dictated by: Dr. Tacho Worthy Date of Service: 11/25/2019 Referring Physician(s) : Dr. Parvez Kumar Diagnosis: Inoperable Stage IIB T2 N1 M0 adenocarcinoma of the pancreatic body currently being treated with palliative concurrent chemo radiation therapy using Xeloda and a planned aggregate dose of 50.4 Gy in 28 fractions. She received about three days of Xeloda before discontinuing systemic therapy. Radiotherapy to date: Course: Pancreas 2019, Treatment Site: Pancreas 25FX, Ref. ID: [id number], Energy: 15X/6X, Dose/Fx (cGy): 180, #Fx: 20 / 25, Dose Correction (cGy): 0, Total Dose (cGy): 3,600, Start Date: 10/13/2019, Elapsed Days: 43 Reason for visit: The patient is being seen today as part of their regularly scheduled weekly on treatment visits to assess for acute toxicities from radiotherapy. Interim History: The patient reports continued fatigue, and she reports that her nausea is currently controlled. Current Medications: Ativan, creon, dilaudid, famotidine, famotidine, hYDROmorphone HCl, loperamide HCl, marinol, metoclopramide HCl, ondansetron, ondansetron, ondansetron HCl, probiotic, prochlorperazine Maleate, prochlorperazine Maleate, spiriva HandiHaler. Allergies: Advair Diskus. Current Complaints/Review of Systems: Constitutional - Complains of a poor appetite nausea managed by anti-emetics, does not get hungry. Complains of severe fatigue. Denies fever, night sweats, rigors / chills and change in weight. Gastrointestinal - Complains of moderate nausea managed with anti-emetics, improving. Complains of pain / cramping to abdomen off and on. Denies abdominal pain, change in bowel habits, constipation, diarrhea, heartburn / dyspepsia, hematochezia, hemorrhoids, melena / GI bleeding, satiety and vomiting. Genitourinary (F) - Denies dysuria, frequency, genital masses, hematuria, incontinence, nocturia, urgency and urine color change. Vital Signs: Performed on 11/25/2019 1:49 PM BMI - 18.272 kg/m2 (low), Height - 65.00 in, Weight - 109.8 lbs, Temperature - 98.1 f, Pulse - 63, Respiration - 17, O2 Sat - 97 %, Pain - 0, Fatigue - 8 and BP - 179/ 69 mm(hg)(high/). Physical Exam: Appears stable, no skin erythema or desquamation. Lungs are clear to auscultation bilaterally. Performance Status: 2 - Ambulatory/capable of all self-care, unable to perform any work activities. Up and about more than 50% of waking hours. (ECOG) Lab: None pending in Radiation Oncology. Imaging: Radiation therapy imaging related to accurate target localization (i.e. KV, MV and CBCT) was reviewed. Appropriate changes, if any, were made to ensure treatment accuracy. Plan: The patient is tolerating therapy reasonably well. Radiotherapy will continue as planned. CPT: 61314 Signed by: Dr. Tacho Worthy 11/25/2019 2:20:20 PM
[2019-12-03 15:36] LABS: Basophils % 0.4 %; Eosinophils # 0.1 10^3/uL (0.0-0.8); Eosinophils % 1.6 %; Hemoglobin 12.2 g/dL (11.5-15.3); Lymphocytes # 0.6 10^3/uL (0.8-4.8); Lymphocytes % 12.5 %; Mean Corpuscular HGB Conc 30.5 g/dL (30.0-36.0); Mean Corpuscular Hemoglobin 30.2 pg (28.0-34.0); Mean Platelet Volume 11.3 fL (7.4-10.4); Monocytes # 0.6 10^3/uL (0.2-0.9); Monocytes % 12.7 %; Neutrophils # 3.53 10^3/uL (1.8-7.7); Neutrophils % 72.4 %; Nucleated Red Blood Cells % 0 %; Platelet Count 125 10^3/cmm (130-400); Red Blood Count 4.04 10^6/uL (4.1-5.3); Red Cell Distribution Width 13.1 % (12.1-15.1); White Blood Count 4.9 10^3/uL (4.0-10.0)
[2019-12-03 15:54] LABS: Alanine Aminotransferase 7 U/L (0-33); Alkaline Phosphatase 50 IU/L (35-105); Blood Urea Nitrogen 8 mg/dL (8-23); Calcium 8.5 mg/dL (8.5-10.5); Carbon Dioxide 19 mmol/L (22-29); Chloride 108 mmol/L (98-107); Globulin 2.1 g/dL (1.3-4.6); Glucose 145 mg/dL (65-115); Osmolality Calculated 282 mOsm/kg (285-295); Sodium 137 mmol/L (136-145); Total Bilirubin 0.2 mg/dL (0.15-1.2); Total Protein 5.1 g/dL (6.6-8.7)
[2019-12-03 16:06] LABS: Anion Gap 13.4 (5-19); Aspartate Amino Transferase 15 U/L (0-32); Potassium 3.4 mmol/L (3.5-5.1)
== END 2019-12-08 23:59 | disposition home or self-care (01) ==
LOC: ONCMED 05:47
PROVIDERS: Nurse Practitioner; Absent Provider Radiology Radiation Oncology; PCP Electrodiagnostic Medicine; Visit Provider Internal Medicine Medical Oncology
DX: Z51.0 Encounter for antineoplastic radiation therapy (principal); C25.1 Malignant neoplasm of body of pancreas; J44.9 Chronic obstructive pulmonary disease, unspecified; E78.5 Hyperlipidemia, unspecified; I10 Essential (primary) hypertension; E11.9 Type 2 diabetes mellitus without complications
CPT/HCPCS: 36415; 77336; 77386; 80053; 85025; 96360; 99214

== ENCOUNTER 2019-12-31 06:31 | Outpatient (RCR) | payer MEDICARE, SELFPAY ==
[2019-12-31 13:53] LABS: Basophils % 0.5 %; Hematocrit 44.8 % (37.0-47.0); Hemoglobin 13.8 g/dL (11.5-15.3); Lymphocytes # 1.1 10^3/uL (0.8-4.8); Lymphocytes % 12.5 %; Mean Corpuscular HGB Conc 30.8 g/dL (30.0-36.0); Mean Corpuscular Hemoglobin 29.1 pg (28.0-34.0); Mean Corpuscular Volume 94.5 fL (81-99); Mean Platelet Volume 11.1 fL (7.4-10.4); Monocytes # 0.5 10^3/uL (0.2-0.9); Monocytes % 6.2 %; Neutrophils # 6.84 10^3/uL (1.8-7.7); Neutrophils % 80.6 %; Nucleated Red Blood Cells % 0 %; Platelet Count 210 10^3/cmm (130-400); Red Blood Count 4.74 10^6/uL (4.1-5.3); Red Cell Distribution Width 14.1 % (12.1-15.1); White Blood Count 8.5 10^3/uL (4.0-10.0)
[2019-12-31 14:23] LABS: Alkaline Phosphatase 91 IU/L (35-105); Chloride 105 mmol/L (98-107); Sodium 142 mmol/L (136-145)
[2019-12-31 14:59] LABS: Potassium 3.2 mmol/L (3.5-5.1)
[2019-12-31 15:00] LABS: Alanine Aminotransferase 10 U/L (0-33); Anion Gap 17.2 (5-19); Aspartate Amino Transferase 16 U/L (0-32); Blood Urea Nitrogen 14 mg/dL (8-23); Calcium 9.1 mg/dL (8.5-10.5); Carbon Dioxide 23 mmol/L (22-29); Glucose 144 mg/dL (65-115); Osmolality Calculated 297 mOsm/kg (285-295); Total Bilirubin 0.3 mg/dL (0.15-1.2); Total Protein 5.7 g/dL (6.6-8.7)
[2019-12-31 15:01] LABS: Albumin Level 3.1 g/dL (3.5-5.2); Globulin 2.6 g/dL (1.3-4.6)
--- NOTE | 2020-01-01 07:54 | ONCRAD EPV_ITS ---
Radiation Oncology Established Patient Visit Patient: Elsi Bynum [id number] : 1935> Age: 84> Sex: Female> Dictated by: Dr. Tacho Worthy Date of Service: 12/31/2019 Referring Physician(s) : Dr. Parvez Kumar Diagnosis: C25.1 - Malignant neoplasm of body of pancreas, Diagnosed 09/16/2019 (Active) Stage IIB, T2, N1, M0 Diagnosis: Inoperable Stage IIB T2 N1 M0 adenocarcinoma of the pancreatic body. Treatment Rendered: Palliative concurrent chemo radiation therapy using Xeloda and an aggregate dose of 45 Gy in 25 fractions (completed 12/03/2019). She experienced significant nausea and fatigue during therapy, and after the third of of receiving Xeloda, she discontinued systemic therapy. Current History: In follow-up today, the patient reports continued fatigue and nausea, and now she has bilateral lower extremity swelling as well as abdominal swelling. She reports no current constipation, no current diarrhea, and she is passing gas. Physical exam revealed mild ascites, but no tenderness to palpation in all 4 quadrants of the abdomen, bowel sounds were normal, and there were no palpable abdominal masses. Current Medications: Ativan, creon, dilaudid, famotidine, famotidine, hYDROmorphone HCl, loperamide HCl, marinol, metoclopramide HCl, ondansetron, ondansetron, ondansetron HCl, probiotic, prochlorperazine Maleate, prochlorperazine Maleate, spiriva HandiHaler. Allergies: Advair Diskus. Current Complaints / Review of Systems: Constitutional - Complains of severe fatigue. Denies lack of appetite, fever and night sweats. Eyes - Complains of double vision associated with vertigo. Denies blurred vision. ENMT - Complains of mouth dryness and altered taste. Denies dysphagia, ear pain but occasionally has the feeling of having water in her ears. and stomatitis. Neck - Denies neck pain. Integumentary - Denies rash. Cardiovascular - Complains of infrequent arrhythmias. Complains of edema in both ankles and feet. Denies chest pain. Respiratory - Complains of cough occasionally and hiccoughs after eating. Denies dyspnea and wheezing. Gastrointestinal - Complains of intermittent diarrhea. Complains of nausea. Denies abdominal pain, constipation, heartburn / dyspepsia and vomiting. Has abdominal swelling for about 2 weeks. Genitourinary (F) - Denies dysuria, frequency, nocturia, urgency, vaginal discharge / bleeding and vaginal spotting. Musculoskeletal - Complains of generalized muscle weakness. Denies bone pain and joint pain. Neurologic - Complains of intermittent dizziness. Hematologic/Lymphatic - Denies tender or enlarged lymph nodes.. Vital Signs: Performed on 12/31/2019 1:57 PM BMI - 18.471 kg/m2 (low), Height - 65.00 in, Weight - 111.0 lbs, Temperature - 97.2 f, Pulse - 74, Respiration - 16, O2 Sat - 100 %, Pain - 2 and BP - 149/ 82 mm(hg)(high/). Physical Exam: General: Alert and oriented x 3. No acute distress. HEENT: Normocephalic, atraumatic. Extraocular Movements Intact: Pupils Equal, Round, Reactive to Light and Accommodation: Sclerae anicteric. Oral cavity is clear without lesions, masses or ulcers. NECK: Supple without supraclavicular or jugular lymphadenopathy. LUNGS: Clear to auscultation bilaterally without rales, rhonchi or wheeze. HEART: Regular rate and rhythm, normal S1 and S2 without murmur, gallop or rub. MUSCULOSKELETAL: No tenderness or percussion pain over the axial skeleton, scapulae or pelvis. ABDOMEN: Mild ascites is present. Abdomen is without tenderness to palpation in all 4 quadrants, bowel sounds are normal, and there are no palpable abdominal masses. EXTREMITIES: Bilateral lower extremity edema is appreciated. Right pedal edema is greater than left pedal edema. NEUROLOGIC: Cranial nerves II ???XII are grossly intact. Normal sensation, strength 5/5 in all extremities, normal gait, no ataxia. Skin: No Jaundice. Performance Status: ECOG 3 Lab: None pending. Test performed on 10/16/2019 8:42 AM Hemoglobin A1C % - 6.3 % (high), Test performed on 10/27/2019 12:45 PM RBC - 3.84 10 6/ul (low), MPV - 10.8 fl (high), Test performed on 12/03/2019 3:03 PM Potassium - 3.4 mmol/l (low), Chloride - 108 mmol/l (high), CO2 - 19 mmol/l (low), Glucose - 145 mg/dl (high), Protein, Total - 5.1 g/dl (low) and Albumin - 3.0 g/dl (low). Pathology: Primary, c25.1 - malignant neoplasm of body of pancreas, Diagnosed 09/16/2019 (active) stage iib, t2, n1, m0. Imaging: See HPI Impression: The patient is an 84-year-old female who is seen 1 month after completing palliative concurrent chemoradiation therapy for management of inoperable T2 N1 M0 adenocarcinoma of the pancreatic body. During this palliative course of treatment, she received 3 days of Xeloda and 45 Gy in 25 fractions (completed 11/2019). This treatment represents the extent of therapy that she could tolerate. Since she was last seen, the patient has increased lower extremity swelling, mild ascites, and persistent nausea/fatigue. From a radiotherapy perspective, there is no current indication for further treatment. I recommend that the patient be considered for best supportive care. This was discussed with Dr Wiggins who will manage her case going forward. She was recommended to follow-up with us on an as-needed basis. Signed by Tacho Worthy MD: 01/01/2020 7:53:21 AM <<Signature on File>> Time spent with patient: CPT Code: CPT Code:
--- NOTE | 2020-01-01 08:22 | ONC FU_ITS ---
Dr. Wiggins Patient Follow-Up Note Patient: Misa Calzada Unit #: [id number]: [id number] Dicatated By: Liban Wiggins M.D.Date of Visit:Dec 31, 2019 Onc Med Follow-up/Prog Note Chief Complaint: Pancreatic cancer. 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 On 08/25/2019 she was admitted to the hospital after presenting to the emergency room with persistent nausea/vomiting. CT abdomen/pelvis reported a heterogeneous area in the body of the pancreas measuring 5 x 2.2 cm. The appearance was consistent with neoplasm, pancreatitis, or pseudocyst. A repeat CT on 08/29/2019 reported an ill-defined low-attenuation enhancing mass in the body of the pancreas measuring 1.7 x 2.4 cm. Air-fluid levels in the stomach and proximal duodenum with transition point in the third portion of the duodenum were felt to be likely due to partial obstruction. A Gastrografin study also was suggestive of partial obstruction/invasion of the a sending portion of the third/fourth segment of the duodenum at the level of the pancreatic mass. With those findings, she was transferred to [facility] for further management. She then underwent upper EUS with fine-needle biopsy of the pancreatic mass on 09/02/2019. The endosonography findings included a malignant appearing mass in the pancreatic body measuring 37 x 25 mm. The mass was noted to encase the splenic artery and at least abut the hepatic artery and superior mesenteric artery. The upstream pancreatic duct was dilated to 3 mm. There was no abnormality noted in the left lobe of the liver or the common bile duct. A few abnormal lymph nodes were visualized in the gastrohepatic ligament and peripancreatic region, with the largest peripancreatic node measuring 11 x 9 mm and the largest gastrohepatic lymph node measuring 11 x 7 mm. Cytology on the EUS was suspicious but not diagnostic. On 09/03/2019 she underwent repeat upper EUS and fine-needle biopsy of the pancreatic mass. 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 Pathology on the 09/03/2019 biopsy did show adenocarcinoma infiltrating fibrosis. The morphology was consistent with pancreaticobiliary primary. Her baseline CA-19-9 was 750 U/mL. She was discharged home on 09/06/2019. I had seen her initially on 09/16/2019. We discussed treatment options. As she was clearly not a suitable candidate for FOLFIRINOX chemotherapy, we discussed the possibility of trial of chemotherapy with gemcitabine/Abraxane versus single agent gemcitabine. With localized disease, the other treatment option we discussed was the possibility of taking radiation as a single modalitiiy or radiation adiministered concurrently with Xeloa. In addition, she was given the option of symptomatic/supportive care only. Ultimately, she opted for the chemoradiation. Her other medical illnesses include hypertension, anemia, type 2 diabetes, and COPD. She has a long history of smoking, previously in the range of 1 pack of cigarettes daily. She currently smokes 1/2 packs/day. INTERIM HISTORY: On 10/13/2019 she began radiation concurrently with Xeloda for chemosensitization. Her treatment was complicated by severe nausea, so that the Xeloda was stopped early on in the treatment. She continued to have difficulty with nausea throughout her treatment, requiring IV hydration on multiple occasions. She ultimately was able to complete radiation on 12/03/2019 to a total dose of 4500 cGy. She is seen for a follow-up visit. She says she is so tired that she cannot do anything. Her ECOG score is 3. Her appetite is poor. She complains that food does not taste like anything. She is forcing it down. Her weight has been stable. She has no fever or night sweats. She has not had sore throat or difficulty swallowing. She does not complain of shortness of breath, cough, or chest pain. She is having just occasional nausea now. She does have some acid reflux, and she complains that she has hiccups when she eats. She is having bowel movements daily. She says it is not diarrhea, but her stools are not firm. She has not been voiding as well, and she has now developed swelling in her legs and feet. She has some pain on the right side due to a recent fall. She has no other joint or bone pain. She does not complain of headache. She does have occasional episodes of dizziness/lightheadedness. She says everything blurs. She has no focal neurologic symptoms. Medications: Ativan 1 - 2 Tablet (of 0.5 mg) Oral q 4 hours PRN, Famotidine 1 Tablet (of 20 mg) Oral b.i.d., HYDROmorphone HCl 1 - 2 Tablet (of 2 mg) Oral four times a day PRN, Loperamide HCl 0.5 - 1 Tablet (of 2 mg) Oral, Ondansetron HCl 1 Tablet (of 4 mg) Oral q 8 hours PRN, Probiotic 1 Capsule Oral daily, Prochlorperazine Maleate 1 Tablet (of 10 mg) Oral b.i.d., Spiriva HandiHaler 1 Capsule (of 18 mcg) Inhalation daily Allergies: Advair Diskus Review of Systems: Constitutional - She feels very tired and she says she cannot do anything. Appetite is poor. She is eating, but she is having to force it down. She says food does not taste like anything. She does not have fever, night sweats, or hot flashes. ECOG score is 3, ENMT - No sinus congestion/drainage. No mouth sores. No sore throat or difficulty swallowing, Hematologic/Lymphatic - No abnormal bruising or bleeding, Respiratory - No shortness of breath. No cough. No pleuritic pain or hemoptysis, Cardiovascular - No angina pain. No palpitations, Gastrointestinal - She still has nausea, just occasionally. She complains that she has hiccups when she eats. She is having some acid reflux. She has having daily bowel movements which are not diarrhea but also are not firm. No blood in the stool or black stools, Genitourinary (F) - No dysuria or hematuria. No urinary frequency. No urgency or incontinence. She has now developed swelling in her lower legs and feet, Musculoskeletal - She has some soreness on her right side due to a recent fall. She has no other joint or bone pain, Integumentary - No skin rash, Neurologic - No headache. She occasionally has dizziness. No numbness or tingling. No other focal neurologic symptoms, Psychiatric - No anxiety or depression. She says the pain pills are helping her sleep, Constitutional - Complains of severe fatigue. Denies lack of appetite, fever and night sweats, Eyes - Complains of double vision associated with vertigo. Denies blurred vision, ENMT - Complains of mouth dryness and altered taste. Denies dysphagia, ear pain but occasionally has the feeling of having water in her ears. and stomatitis, Neck - Denies neck pain, Integumentary - Denies rash, Cardiovascular - Complains of infrequent arrhythmias. Complains of edema in both ankles and feet. Denies chest pain, Respiratory - Complains of cough occasionally and hiccoughs after eating. Denies dyspnea and wheezing, Gastrointestinal - Complains of intermittent diarrhea. Complains of nausea. Denies abdominal pain, constipation, heartburn / dyspepsia and vomiting. Has abdominal swelling for about 2 weeks, Genitourinary (F) - Denies dysuria, frequency, nocturia, urgency, vaginal discharge / bleeding and vaginal spotting, Musculoskeletal - Complains of generalized muscle weakness. Denies bone pain and joint pain, Neurologic - Complains of intermittent dizziness, Hematologic/Lymphatic - Denies tender or enlarged lymph nodes. Vital Signs: Performed on Dec 31, 2019 13:57 Height - 65.00 in Weight - 111.0 lbs Temperature - 97.2 F Pulse - 74 Respiration - 16 BP - 149/82 mm(hg) (HIGH) O2 Sat - 100 % Pain - 2 Performed on Dec 31, 2019 13:57 BMI - 18.471 kg/m2 (LOW) Physical Examination: Constitutional - She appears generally weak, Eyes - Sclerae nonicteric. Conjunctivae clear, ENMT - Mouth is dry. There are no lesions noted in the oral cavity, Hematologic/Lymphatic - No cervical, clavicular, or axillary adenopathy, Respiratory - Lungs sound clear with diminished air movement bilaterally, Cardiovascular - Heart rhythm is irregular. There is a II/ systolic murmur. There is no gallop or rub noted, Abdomen - Moderately distended. Liver and spleen are not enlarged. There is no abdominal mass noted. There may be some ascites. There is no inguinal adenopathy, Extremities - There is 2+ edema of the lower legs and feet, Integumentary - No skin eruption, Neurologic - No focal neurologic deficits noted. Lab/Imaging: Test performed on Dec 31, 2019 12:50 Sodium 142 mmol/L Potassium 3.2 mmol/L Chloride 105 mmol/L CO2 23 mmol/L Anion Gap 17.2 BUN 14 mg/dL Creatinine 0.7 mg/dL Cr Clearance (Est) 51.4700 mL/min Glucose 144 mg/dL Osmolality - Calculated 297 mOsm/kg Calcium 9.1 mg/dL Protein, Total 5.7 g/dL Albumin 3.1 g/dL Globulin 2.6 g/dL Bilirubin, Total 0.3 mg/dL ALT (SGPT) 10 U/L AST (SGOT) 16 U/L Alkaline Phosphatase 91 IU/L WBC 8.5 10 3/uL RBC 4.74 10 6/uL HGB 13.8 g/dL HCT 44.8 % MCV 94.5 fL MCH 29.1 pg MCHC 30.8 g/dL RDW 14.1 % Platelet Count 210 10 3/cmm MPV 11.1 fL Neutrophils 6.84 10 3/uL Lymphocytes 1.1 10 3/uL Monocytes 0.5 10 3/uL Eosinophils 0.0 10 3/uL Basophils 0.0 10 3/uL Neutrophil % 80.6 % Lymphocyte % 12.5 % Monocyte % 6.2 % Eosinophil % 0.0 % Basophils % 0.5 % NRBC % 0 % Impression: 1. Patient with adenocarcinoma involving the body of the pancreas. By clinical evaluation her disease appears to be stage IIB (T2, N1, M0), but she was deemed inoperable due to ultrasound evidence of encasement of the splenic artery. 2. She had associated obstruction of the third portion of the duodenum for which she has undergone placement of duodenal stent. Her other medical illnesses include: 3. Hypertension. 4. Hyperlipidemia. 5. Type 2 diabetes. 6. COPD. On 10/13/2019 she began radiation concurrently with Xeloda for chemosensitization. Her treatment was complicated by severe nausea, so that the Xeloda was stopped early on in the treatment. She continued to have difficulty with nausea throughout her treatment, requiring IV hydration on multiple occasions. She ultimately was able to complete radiation on 12/03/2019 to a total dose of 4500 cGy. She has not been evaluated for response. At this point she has very marginal performance status. She has poor appetite and oral intake, and she complains that food has no taste. She has developed lower extremity edema. Plan: She has completed her treatment, she will be scheduled for restaging CT abdomen/pelvis. Her further treatment, though, will be symptomatic/supportive, as she will not want to attempt any further chemotherapy. Depending on the CT findings, I will likely transition her to hospice, as she does have very poor performance status and her overall prognosis also appears to be very poor. She will now restart hydrochlorothiazide 25 mg daily and she will restart her potassium supplement. I will tentatively plan a follow-up visit in 1 month. Signed By: Liban Wiggins M.D. <<Signature on File>>
== END 2020-01-07 23:59 | disposition home or self-care (01) ==
LOC: ONCMED 06:31
PROVIDERS: Absent Provider Radiology Radiation Oncology; PCP Electrodiagnostic Medicine; Visit Provider Internal Medicine Medical Oncology
DX: C25.1 Malignant neoplasm of body of pancreas (principal); R60.0 Localized edema; R63.0 Anorexia; Z68.1 Body mass index [BMI] 19.9 or less, adult; I10 Essential (primary) hypertension; E78.5 Hyperlipidemia, unspecified; E11.9 Type 2 diabetes mellitus without complications; J44.9 Chronic obstructive pulmonary disease, unspecified; Z79.899 Other long term (current) drug therapy; Z92.21 Personal history of antineoplastic chemotherapy; Z92.3 Personal history of irradiation
CPT/HCPCS: 80053; 85025; 99214

== ENCOUNTER 2020-01-12 13:19 | Outpatient (RCR) | payer MEDICARE, SELFPAY ==
--- NOTE | 2020-01-12 | CT_ITS ---
WS: [id number] CT scan of the abdomen and pelvis with IV contrast. Additional two-dimensional coronal and sagittal r econstruction was performed. 01/12/2020 Clinical Data: PANCREATIC CANCER Comparison: CT abdomen and pelvis, DLP: 861.[address] scans at [facility] use at least one of these dose optimization techniques: automat ed exposure control; mA and/or kV adjustment per patient size (includes targeted exams where dose is matched to clinical indication); or iterative reconstruction. Findings: The lower lungs modest bilateral effusions. No nodules or masses are seen. Coronary artery calcificat ion is present. The liver shows no abnormalities. No cysts, masses or ductal dilatation is present. The portal vein i s patent. There is perihepatic ascites. The gallbladder is not seen. The adrenal glands are moderatel y enlarged and probably have bilateral adrenal adenomas. The spleen is normal with minimal perispleni c ascites. The pancreas shows calcifications in the head and a central mass unchanged. There is a large stent wh ich appears to pass from the third part of the duodenum into the jejunum. The kidneys show equal bilateral contrast excretion with bilateral cortical cysts. The abdominal aorta is normal in size with calcification in the wall. Numerous small lymph nodes are seen within the mesentery. No large bulky adenopathy is present.. No appendicitis or diverticulitis is seen. , Small bowel and colon show moderate fluid in the stomach and duodenum. No small bowel obstruction is seen. The bladder is unremarkable. No inguinal hernia is seen. There is pelvic ascites present. The uterus is absent. Degenerative change and degenerative disc disease of the lower thoracic spine and all the lumbar spin e is seen. CT/CT abdomen pelvis w con* [id number] Impression: 1. Mass in the body of the pancreas most consistent with cancer of the pancreas unchanged. 2. Probable intestinal stent extending from the duodenum to the jejunum in the left upper quadrant. 3. Chronic pancreatitis. 4. Moderate amount of ascites.
[2020-01-12] MEDS: iohexol 300 mg/mL 100 mL Btl IV (13:54)
== END 2020-02-07 23:59 | disposition home or self-care (01) ==
LOC: RADWPI 13:19
PROVIDERS: Absent Provider Radiology Radiation Oncology; PCP Electrodiagnostic Medicine; Visit Provider Internal Medicine Medical Oncology
DX: C25.1 Malignant neoplasm of body of pancreas (principal)
CPT/HCPCS: 74177; Q9967